=== PATIENT | female | born 1935 | race Caucasian/White ===

== ENCOUNTER 2022-02-04 12:07 | Inpatient (IN) | payer MEDICARE, SELFPAY ==
[2022-02-04] VITALS (37 sets, daily range): BP systolic 187–232; BP diastolic 54–112; PULSE 60–72; RESP 11–21; TEMP 36.3–37.1; O2SAT 95–100; BMI 29.4
--- NOTE | ~2022-02-04 | CT_ITS ---
EXAMINATION: CT brain wo con DATE: 02/04/2022 13:40 INDICATION: Head injury. TECHNIQUE: Computed tomography (CT) of the head was performed without intravenous contrast. The mA wa s adjusted according to patient size. Iterative reconstruction technique was employed. The dose-lengt h product was 605.33 mGy-cm. COMPARISON: None FINDINGS: There is an old infarct in left occipital lobe. There are old infarcts in the left basal ga nglia. There are scattered areas of low attenuation in the cerebral white matter, which is within nor mal limits for the patient's age. There is no intracranial hemorrhage, acute infarction, or abnormal intracranial mass lesion. There is ex vacuo dilatation of trigone of left lateral ventricle. The orbi ts are normal. There is mild mucosal thickening in the ethmoid sinuses. The mastoid air cells are nor mal. IMPRESSION: 1. Old infarcts involving the left occipital lobe and left basal ganglia. Reviewed, dictated and finalized at location A.
--- NOTE | ~2022-02-04 | CT_ITS ---
EXAMINATION: CT cervical spine wo con DATE: 02/04/2022 13:40 INDICATION: Head injury. TECHNIQUE: Computed tomography (CT) of the cervical spine was performed without intravenous contrast. Automated exposure control and iterative reconstruction technique were employed. The dose-length pro duct was 198.10 mGy-cm. COMPARISON: None FINDINGS: There is 7 degrees dextrocurvature of cervicothoracic spine. There is a chronic compression fracture of T2 with 1/5 loss of height. There is kyphosis of upper cervical spine. There is 2 mm ant erolisthesis of C7 on T1. There is mildly decreased disc height at C2-C3, moderately decreased disc h eight at C3-C4, severely decreased disc height at C4-C5, C5-C6, and C6-C7, and mildly decreased disc height at C7-T1. The following disc levels are specifically discussed: C2-C3: There is ankylosis of the uncovertebral joints without hypertrophy. There is ankylosis of righ t facet joint with mild hypertrophy. There is no neural foraminal stenosis. There is no central canal stenosis. C3-C4: There is mild right and severe left uncovertebral joint osteoarthritis. There is severe bilate ral facet joint osteoarthritis. There is mild bilateral neural foraminal stenosis. There is no centra l canal stenosis. C4-C5: There is severe bilateral uncovertebral joint osteoarthritis. There is mild bilateral facet nell int osteoarthritis. There is mild bilateral neural foraminal stenosis. There is mild central canal st enosis. C5-C6: There is mild bilateral uncovertebral joint osteoarthritis. There is moderate bilateral facet joint osteoarthritis. There is mild bilateral neural foraminal stenosis. There is mild central canal stenosis. C6-C7: There is severe bilateral uncovertebral joint osteoarthritis. There is severe bilateral facet joint osteoarthritis. There is mild bilateral neural foraminal stenosis. There is no central canal st enosis. C7-T1: There is no uncovertebral joint osteoarthritis. There is severe bilateral facet joint osteoart hritis. There is mild bilateral neural foraminal stenosis. There is no central canal stenosis. IMPRESSION: 1. No acute fracture. 2. Severe cervical spondylosis. Reviewed, dictated and finalized at location A.
--- NOTE | ~2022-02-04 | XR_ITS ---
EXAMINATION: XR knee RT 2V INDICATION: Right knee pain, initial encounter TECHNIQUE: Two views of the right knee are obtained. COMPARISON: None available FINDINGS: There are changes of total knee arthroplasty. Alignment is normal. There is no fracture. Ca lcified atherosclerosis is noted. IMPRESSION: 1. No acute osseous abnormality. Reviewed, dictated and finalized at location B.
--- NOTE | ~2022-02-04 | XR_ITS ---
EXAMINATION: XR knee LT 2V DATE: 02/04/2022 16:36 INDICATION: Left knee pain after fall TECHNIQUE: Two views of the left knee were obtained. COMPARISON: None. FINDINGS: Alignment is normal. No fracture or osteochondral lesion. There is severe tricompartmental osteoarthritis. No joint effusion/synovitis. Calcified atherosclerosis is noted. IMPRESSION: 1. Severe tricompartmental osteoarthritis without acute osseous abnormality. Reviewed, dictated and finalized at location B.
--- NOTE | ~2022-02-04 | XR_ITS ---
EXAMINATION: XR hand LT 2V INDICATION: Left hand pain after fall TECHNIQUE: Two views of the left hand are obtained. COMPARISON: None available FINDINGS: Examination is limited by osteopenia and two views. No fracture is identified. There is wid ening of the scapholunate interval. There is moderate osteoarthritis at the triscaphe and first carpa l metacarpal joints as well as multiple interphalangeal joints. There is questionable palmar subluxat ion of the second proximal phalanx relative to the metacarpal. IMPRESSION: 1. 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 Examination. 2. Possible palmar subluxation of the second proximal phalanx relative to the metacarpal. Reviewed, dictated and finalized at location B. IMPRESSION: 1. 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 Examination. 2. Possible palmar subluxation of the second proximal phalanx relative to the m etacarpal.
--- NOTE | 2022-02-04 12:22 | ECG_ITS ---
Measurements Intervals [place] Rate: 61 P: 167 AK: 199 QRS: 20 QRSD: 93 T: 48 QT: 436 QTc: 440 Interpretive Statements ELECTRONIC ATRIAL PACEMAKER OTHERWISE UNREMARKABLE ECG ABNORMAL RHYTHM ECG NO PREVIOUS ECG AVAILABLE FOR COMPARISON Electronically Signed On 02-04-2022 14:10:40 CDT by Dereck Pinto M.D.
--- NOTE | 2022-02-04 12:52 | ED.FALL ---
HPI - Fall General Chief Complaint: Fall Stated Complaint: weakness, fall/hit head/ elbow injury Time Seen by Provider: 02/04/22 12:10 History of Present Illness HPI Narrative: Patient is an 86-year-old female with a history of hypertension presenting after a fall. Patient states that she lives at assisted living and is usually able to go to and from the bathroom on her own. States that today she was walking she felt weak and like one of her legs gave out. States that she fell to the floor and struck the left side of her head. She denies losing consciousness. Patient denies significant complaints. She denies headache, neck pain, chest pain, lightheadedness, shortness of breath, abdominal pain, nausea vomiting, dysuria. Reports several episodes of diarrhea. Related Data Home Medications Medication Instructions Recorded Confirmed aspirin 81 mg tablet,delayed 81 mg PO DAILY 10/13/21 02/04/22 release multivit,tx with iron 27 1 tablet PO DAILY 10/13/21 02/04/22 [id number] acid 0.4 mg-minerals tablet solifenacin 5 mg tablet (Vesicare) 5 mg PO DAILY 10/13/21 02/04/22 ticagrelor 90 mg tablet (Brilinta) 90 mg PO Q12H 10/13/21 02/04/22 Allergies Allergy/AdvReac Type Severity Reaction Status Date / Time amlodipine AdvReac Anaphylaxis Verified 02/04/22 19:06 losartan AdvReac Anaphylaxis Verified 02/04/22 19:06 Review of Systems Review of Systems: All systems reviewed & are unremarkable except as noted in HPI and below PMFSH Past Medical History Medical History (Updated 02/06/22 @ 19:59 by Valeria Zimmerman MD) Anemia Hyperlipidemia due to dietary fat intake Hypertension Hyponatremia Ischemic stroke Overactive bladder Surgical History Surgical History History of permanent cardiac pacemaker placement History of renal stent Hx of total knee arthroplasty Family History Family History Mother CAD (coronary artery disease) Social History Social History (Updated 02/04/22 @ 18:40 by Leslie Zelaya NP) Social History: her daughter varun hyman is her poa . 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 She is from [facility]. She is a lifelong nonsmoker. She denies any alcohol marijuana or illicit drugs. She is typically ambulatory with assistance. Code status full code Smoking status: Never smoker Alcohol intake: never Substance use: never Substance use type: does not use Spiritual care concerns: No Has the Lack of Transportation Kept You From Medical Appointments or From Getting Medications?: No Within the Past 12 Months, Were You Worried Whether Your Food Would Run Out Before You Got Money to Buy More?: Never True What is Your Housing Situation Today?: I Have Housing Are You Worried That in the Next 2 Months, You May Not Have Your Own Housing to Live In?: No Do You Have Trouble Paying Your Heating Or Electricity Bill?: No Do You Have Trouble Paying For Medicines?: No Are You Currently Unemployed and Looking for Work?: No Highest Level of Education Completed: High School Diploma/GED Do You Have Trouble With Childcare or the Care of a Family Member?: No Exam Narrative: GENERAL: Well-appearing, well-nourished, and in no acute distress. HEAD: Normocephalic, atraumatic. EYES: PERRLA and EOMI. ENT: Nares clear, no rhinorrhea or epistaxis. Mucous membranes moist. NECK: Supple. CHEST: Clear to auscultation. No respiratory distress. HEART: Regular rate and rhythm. No murmur heard. Normal peripheral pulses. ABDOMEN: Soft, nontender, nondistended, normal active bowel sounds. EXTREMITIES: Normal range of motion. No edema. Skin tear left elbow with clean dressing in place SKIN: Warm, dry, no rash. NEURO: No focal deficits. Alert and oriented x3. PSYCH: Normal mood and affect. Course Course Emergency Course: Rebecca
[2022-02-04 13:30] LABS: Add Urine Microscopic? YES; Appearance Urine Clear (Clear); Bilirubin Urine Negative (Negative); Blood Urine Negative (Negative); Color Urine Yellow (Yellow); Glucose Urine UA Negative (Negative); Ketones Urine Negative (Negative); Leukocyte Esterase Ur Negative LEU/UL (Negative); Mucus Urine Rare /lpf; Nitrate Urine Negative (Negative); Protein Urine Negative (Negative); RBC Urine 0-2 /hpf (0-2); Specific Grav Ur 1.013 (1.001-1.035); Urobilinogen Urine Negative mg/dL (<2.0)
[2022-02-04] MEDS: SODIUM CHLORIDE 0.9% IV 1,000 ML 999 ML IV CONT (13:45)
[2022-02-04 14:14] LABS: Hematocrit 33.8 % (37.0-47.0); Hemoglobin 11.1 g/dL (12.0-15.0); Mean Corpuscular HGB Conc 32.8 g/dl (32-36); Mean Corpuscular Hemoglobin 30.4 pg (26-34); Mean Corpuscular Volume 92.6 fl (80-100); Mean Platelet Volume 8.7 fl (7.4-10.4); Platelet Count Result 156 k/mm3 (150-375); Red Blood Count 3.65 M/mm3 (4.2-5.4); White Blood Count 4.3 K/mm3 (4.5-10.0)
[2022-02-04 14:27] LABS: Alanine Aminotransferase 14 U/L (6-35); Albumin Level 3.9 g/dL (3.5-5.1); Alkaline Phosphatase 79 U/L (38-126); Anion Gap 11 mmol/L (8-16); Aspartate Amino Transferase 22 U/L (14-36); Bilirubin,Total 0.7 mg/dL (0.2-1.3); Blood Urea Nitrogen 15 mg/dL (7-17); Calcium 8.5 mg/dL (8.4-10.2); Carbon Dioxide 25 mmol/L (22-30); Chloride 90 mmol/L (98-107); Estimated CRCL calculation 51 ml/min; Estimated Glomerular Filt Rate > 60; Glucose 101 mg/dL (65-110); Potassium 4.4 mmol/L (3.4-5.0); Sodium 126 mmol/L (137-145)
[2022-02-04 14:38] LABS: Troponin I < 0.012 ng/mL (0.000-0.034)
[2022-02-04 14:48] LABS: Anisocytosis 2+ (NORMAL); Band Neutrophils Percent 3 % (0-6); Lymphocytes Absolute Manual 0.43 K/mm3 (1.1-4.5); Monocytes Absolute Manual 0.94 K/mm3 (0.1-0.90); Monocytes Percent Manual 22 % (3-9); Neutrophils Absolute Manual 2.92 K/mm3 (1.7-7.2); Neutrophils Percent Manual 65 % (46-73); Platelet Estimate Adequate (Adequate); Total Cells Counted 100
[2022-02-04 14:49] LABS: Schistocytes None Seen (NORMAL)
--- NOTE | 2022-02-04 15:00 | PC.NURSE ---
ERP notified of Pt. high blood pressure. No new orders at this time. Pt. denies any complaints
[2022-02-04 15:34] LABS: Magnesium 1.7 mg/dL (1.6-2.3)
--- NOTE | 2022-02-04 16:06 | PM.IMHP ---
H&P: HPI History of Present Illness Date/Time: 02/04/22 16:06 Chief Complaint: fall Narrative: This is an 86-year-old female patient who resides in nursing home assistant living. She has a history of hypertension. The patient is usually able to get up and ambulate on her own and get herself to the bathroom. The patient stated that her legs felt weak and felt like 1 of her legs gave out. She stated that she fell to the floor and struck the left side of her head. She states that she did not lose consciousness. She did not have any complaints of dizziness or any chest pain prior to falling. She did not have any headache or lightheadedness any shortness of breath or any other symptoms prior to falling. The patient did have several episodes of diarrhea today. She stated when she fell she lost control of her stool and when all over the carpet. Her H&H is 11.1 and 33.8. Sodium was 126 and previous it was 132. Patient was given Apresoline for elevated blood pressure in the emergency room. The patient was also given IV fluids due to the fact that she had hyponatremia. The patient is on hydrochlorothiazide at home. Plus she has had diarrhea as well. The patient is being admitted for observation status on the date of service of 02/04/2022. Review of Systems Review of Systems: See HPI All systems reviewed & are unremarkable except as noted in HPI and below Constitutional: Constitutional: Reports as per HPI and Reports no additional constitutional complaints Eyes: Eyes: Reports as per HPI and Reports no additional eye complaints ENT: Reports system reviewed and no additional complaints, except as documented and Reports Normal hearing present Cardiovascular: Cardiovascular: Reports no additional cardiovascular complaints Respiratory: Respiratory: Reports no additional respiratory complaints and Reports no additional respiratory complaints Gastrointestinal: Gastrointestinal: Reports as per HPI and Reports no additional gastrointestinal complaints Musculoskeletal: Musculoskeletal: Reports no additional musculoskeletal complaints Integumentary/Breasts: Skin/Breast: Reports system reviewed and no additional complaints, except as docu and Reports as per HPI Neurologic: Reports system reviewed and no additional complaints, except as documented, Reports as per HPI and Reports Normal hearing present Psychiatric: Psychiatric: Reports no additional psychiatric complaints and Reports as per HPI Endocrine: Endocrine: Reports no additional endocrine complaints Hematologic/Lymphatic: Hematologic/Lymphatic: Reports no additional hematologic/lymphatic complaints Allergic/Immunologic: Allergic/Immunologic: Reports no additional allergic/immunologic complaints [facility] Past Medical History Medical History (Updated 02/04/22 @ 18:49 by Leslie Zelaya NP) Anemia Hyperlipidemia due to dietary fat intake Hypertension Hyponatremia Ischemic stroke Overactive bladder Surgical History Surgical History History of permanent cardiac pacemaker placement History of renal stent Hx of total knee arthroplasty Family History Family History Mother CAD (coronary artery disease) Social History Social History (Updated 02/04/22 @ 18:40 by Leslie Zelaya NP) Social History: her daughter varun hyman is her poa . 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 She is from [facility]. She is a lifelong nonsmoker. She denies any alcohol marijuana or illicit drugs. She is typically ambulatory with assistance. Code status full code Smoking status: Never smoker Meds Home Medications and Allergies Home Medications Medication Instructions Recorded Confirmed Type aspirin 81 mg tablet,delayed 81 mg PO DAILY 10/13/21 10/13/21 History release multivit,tx with iron 27 1 tablet PO DAILY 10/13/21 06
[2022-02-04] MEDS: hydrALAZINE HCL 20 MG/ML VIAL 10 MG IV PUSH (17:26)
--- NOTE | 2022-02-04 18:23 | PC.NURSE ---
updated vitals called to floor
--- NOTE | 2022-02-04 18:47 | ADMGEN ---
This patient, Christi Perez, was admitted to 2 Medical Room 253-01. Patient/family oriented to hospital policies and general routines including ID bracelet, bed and alarms, visiting hours, pain management, procedures, bathroom and other care routines, personal items, smoking policy, room service/diet, and visiting hours. Information on how to activate the Rapid Response Team has been discussed. Patient/Family are encouraged to report perceived risks to care and to ask questions if they do not understand what they are told or what they should do.
[2022-02-04] MEDS: SODIUM CHLORIDE 0.9% IV 1,000 ML 75 ML IV CONT (19:53)
[2022-02-04] MEDS: carvediloL 12.5 MG TABLET 25 MG PO (19:54)
[2022-02-04] MEDS: TICAGRELOR 90 MG TABLET PO (19:56)
[2022-02-04 21:06] LABS: Sodium Urine Random 93 meq/L
[2022-02-05] VITALS (15 sets, daily range): BP systolic 100–181; BP diastolic 48–81; PULSE 60–69; RESP 14–18; TEMP 36.7–36.8; O2SAT 95–99
[2022-02-05 05:46] LABS: Hematocrit 34.4 % (37.0-47.0); Hemoglobin 11.3 g/dL (12.0-15.0); Immature Granulocyte Absolute 0.03 K/mm3 (0.00-0.031); Immature Granulocyte Percent A 0.9 % (0-0.5); Lymphocytes Absolute Auto 0.62 K/mm3 (0.9-3.2); Lymphocytes Percent Auto 17.7 % (18.3-44.2); Mean Corpuscular HGB Conc 32.8 g/dl (32-36); Mean Corpuscular Hemoglobin 30.5 pg (26-34); Mean Corpuscular Volume 92.7 fl (80-100); Mean Platelet Volume 9.2 fl (7.4-10.4); Monocytes Absolute Auto 0.8 K/mm3 (0.1-0.6); Monocytes Percent Auto 23.4 % (2.6-8.5); Platelet Count Result 162 k/mm3 (150-375); Red Blood Count 3.71 M/mm3 (4.2-5.4); Red Cell Distribution Width 17.1 % (11.5-14.5); White Blood Count 3.5 K/mm3 (4.5-10.0)
[2022-02-05 05:55] LABS: Lactic Acid Reflex 0.9 mmol/L (0.7-2.0)
[2022-02-05 05:56] LABS: Alanine Aminotransferase 15 U/L (6-35); Albumin Level 3.8 g/dL (3.5-5.1); Alkaline Phosphatase 74 U/L (38-126); Anion Gap 8 mmol/L (8-16); Aspartate Amino Transferase 25 U/L (14-36); Bilirubin,Total 0.7 mg/dL (0.2-1.3); Blood Urea Nitrogen 12 mg/dL (7-17); Calcium 8.5 mg/dL (8.4-10.2); Carbon Dioxide 24 mmol/L (22-30); Chloride 96 mmol/L (98-107); Creatine Kinase 85 U/L (30-135); Estimated CRCL calculation 58 ml/min; Estimated Glomerular Filt Rate > 60; Glucose 92 mg/dL (65-110); Magnesium 1.7 mg/dL (1.6-2.3); Potassium 3.7 mmol/L (3.4-5.0); Sodium 128 mmol/L (137-145)
[2022-02-05 06:29] LABS: Thyroid Stimulating Hormone Reflex 0.483 uIU/mL (0.465-4.68)
[2022-02-05] MEDS: THERAPEUTIC MULTIVITAMINS/MINERALS TAB (*BKC) 1 TABLET PO (08:43)
[2022-02-05] MEDS: carvediloL 12.5 MG TABLET 25 MG PO ×2 (08:43→17:00)
[2022-02-05] MEDS: SOLIFENACIN 5 MG TABLET PO (08:44)
[2022-02-05] MEDS: TICAGRELOR 90 MG TABLET PO ×2 (08:44→20:58)
[2022-02-05] MEDS: ASPIRIN 81 MG ENTERIC TABLET PO (08:44)
[2022-02-05] MEDS: lisinopriL 20 MG TABLET 40 MG PO (08:44)
--- NOTE | 2022-02-05 10:23 | PM.IMPN ---
Progress Note: A&P Assessment and Plan (1) Hyponatremia: Code(s): E87.1 - Hypo-osmolality and hyponatremia Status: Acute Assessment and Plan: - the patient is on hydrochlorothiazide so I will hold that for now. - I will check her urine sodium and osmolarity. - I am going to hold her hydrochlorothiazide for now. - this is most likely due to her dehydration as she has poor oral intake. She also had diarrhea and has been on a water pill. (2) Anemia: Code(s): D64.9 - Anemia, unspecified Status: Acute Assessment and Plan: -The patient is on Brilinta an aspirin but has no signs and symptoms of bleeding. -The patient is at her baseline. - the patient takes a multivitamin with iron at home. - will check a stool for occult blood as well. -MCV and MCH are normal. (3) Diarrhea: Code(s): R19.7 - Diarrhea, unspecified Status: Acute Assessment and Plan: -I did send stool for occult blood and cultures. Will treat accordingly. - patient has no complaints of any abdominal pain. -continue to monitor electrolytes and replace as necessary. -will gently hydrated she has hyponatremia. (4) Hyperlipidemia due to dietary fat intake: Code(s): E78.49 - Other hyperlipidemia Status: Acute Assessment and Plan: - I am going to hold her atorvastatin at this time due to her weakness. (5) Hypertension: Code(s): I10 - Essential (primary) hypertension Status: Acute Assessment and Plan: -continue with Coreg -continue lisinopril and continue to check BMPs daily. - hold hydrochlorothiazide due to the hyponatremia (6) Ischemic stroke: Code(s): I63.9 - Cerebral infarction, unspecified Status: Acute Assessment and Plan: as per CT today patient has old stroke -continue with aspirin and Brilinta. - Atorvastatin is on hold due to her weakness. (7) Overactive bladder: Code(s): N32.81 - Overactive bladder Status: Acute Assessment and Plan: -Continue with VESIcare Subjective Date/time seen: 02/05/22 10:23 no complaints Exam Const: General: cooperative, healthy appearing, comfortable, no acute distress, well developed, alert, awake, Physically active, average body habitus, well nourished and overweight Nutritional Appearance: average body habitus, well nourished and overweight Orientation/consciousness: oriented to person, oriented to place, oriented to time and patient oriented x3 Limitations: no limitations HENMT: Head: normal to inspection, No palpable skull fracture present, normocephalic and atraumatic Ears: external ears normal and hearing grossly impaired Face/Nose/Sinus: Normal external nose present and Normal nares present Eyes: General: appearance normal, both eyes and all related structures Alignment and Position: alignment normal Periorbital: periorbital findings normal Eyelids: eyelids normal Sclera: sclerae normal Pupils: Equal, round and reactive pupils present EOM: EOMs intact bilaterally Neck: Neck: normal visual inspection, full ROM, no lymphadenopathy, trachea midline and supple Chest: Chest palpation & inspection: normal inspection of the chest Resp: Effort & Inspection: normal respiratory effort Auscultation: clear to auscultation bilaterally Cardio: Palpation: normal PMI Rate: regular rate Rhythm: regular rhythm Heart sounds: S1 normal heart sound present and S2 normal heart sound present Peripheral pulses: Peripheral pulses 2+ throughout Other: paced beats GI: Inspection: normal to inspection Auscultation: normal bowel sounds Rectal Exam: deferred Back/Spine/Pelvis: Cervical Spine: cervical ROM normal Skin: General skin exam: normal color Lesions: no lesions Rashes: no rashes Trauma: no lacerations or abrasions Wounds: no wounds Hair: general thinning Nails: normal Other: the patient has a large purple hematoma to her left hand and left elbow. The left hand is
--- NOTE | 2022-02-05 11:35 | PC.NURSE ---
Up in recliner. OT in room trying to get patient to respond. Nurse ran into room. Patient appeared in a daze. Rapid response called. Vital signs and blood sugar taken. Patient slowly came around and responded appropriately.
--- NOTE | 2022-02-05 11:39 | PCOTNOTE ---
Attempted to see pt. for occupational therapy evaluation. Pt. unresponsive in chair. Nursing alerted. Rapid Response called. Unsafe to evaluate pt. at this time. Following.
[2022-02-05 11:48] LABS: Glucose Point of Care 145 mg/dl (65-105)
--- NOTE | 2022-02-05 12:07 | PM.EVENT ---
Event Note Event Note Event Note: 02/05/22 Critical Care Physician About 10:35 a rapid response was called to 253 for unresponsiveness. This patient had PT earlier, complained of weakness in her legs. she became pale, was not responding to questions, and was not following commands. She wears hearing aids and does not have them in, so not sure if that played a role. Her BP in the right arm while sitting in recliner was 74/40. She was reclined, repeat BP was higher 104/74. Pulse 60s, saturation 96%. After her BP increased, she was able to talk, knew that she was at [place], her name, age. Fingerstsick glucose was normal. RN said that she cane in with extremely high blood pressure over 200. She may be over-treated, might feel better with more blood pressure. I will defer this to Dr Perez. Clara Giles MD
[2022-02-06 05:15] VITALS: BP 121/61; PULSE 60; RESP 17; TEMP 36.7; O2SAT 95
[2022-02-06 05:15] LABS: IFOB Positive Control Positive; Immunochemical Fecal Occult Bl Negative (N)
[2022-02-06 05:45] LABS: Toxigenic C. Diff NEGATIVE (NEGATIVE)
[2022-02-06 09:00] LABS: Anion Gap 10 mmol/L (8-16); Blood Urea Nitrogen 17 mg/dL (7-17); Calcium 8.3 mg/dL (8.4-10.2); Carbon Dioxide 26 mmol/L (22-30); Chloride 93 mmol/L (98-107); Estimated CRCL calculation 43 ml/min; Estimated Glomerular Filt Rate > 60; Glucose 95 mg/dL (65-110); Potassium 3.8 mmol/L (3.4-5.0); Sodium 129 mmol/L (137-145)
[2022-02-06] MEDS: SOLIFENACIN 5 MG TABLET PO (09:34)
[2022-02-06] MEDS: lisinopriL 10 MG TABLET PO (09:34)
[2022-02-06] MEDS: THERAPEUTIC MULTIVITAMINS/MINERALS TAB (*BKC) 1 TABLET PO (09:34)
[2022-02-06 09:35] VITALS: PULSE 60; RESP 18; O2SAT 95
[2022-02-06] MEDS: ASPIRIN 81 MG ENTERIC TABLET PO (09:35)
[2022-02-06] MEDS: TICAGRELOR 90 MG TABLET PO ×2 (09:35→20:26)
--- NOTE | 2022-02-06 11:11 | PM.IMPN ---
Progress Note: A&P Assessment and Plan (1) Hyponatremia: Code(s): E87.1 - Hypo-osmolality and hyponatremia Status: Acute Assessment and Plan: - the patient is on hydrochlorothiazide so I will hold that for now. - I will check her urine sodium and osmolarity. - I am going to hold her hydrochlorothiazide for now. - this is most likely due to her dehydration as she has poor oral intake. - will give a little bit of fluids and see how she responds. (2) Anemia: Code(s): D64.9 - Anemia, unspecified Status: Acute Assessment and Plan: -The patient is on Brilinta an aspirin but has no signs and symptoms of bleeding. -The patient is at her baseline. - the patient takes a multivitamin with iron at home. - will check a stool for occult blood as well. -MCV and MCH are normal. (3) Diarrhea: Code(s): R19.7 - Diarrhea, unspecified Status: Acute Assessment and Plan: -I did send stool for occult blood and cultures. Will treat accordingly. - patient has no complaints of any abdominal pain. -continue to monitor electrolytes and replace as necessary. -will gently hydrated she has hyponatremia. (4) Hyperlipidemia due to dietary fat intake: Code(s): E78.49 - Other hyperlipidemia Status: Acute Assessment and Plan: - I am going to hold her atorvastatin at this time due to her weakness. (5) Hypertension: Code(s): I10 - Essential (primary) hypertension Status: Acute Assessment and Plan: -continue with Coreg -continue lisinopril and continue to check BMPs daily. - hold hydrochlorothiazide due to the hyponatremia (6) Ischemic stroke: Code(s): I63.9 - Cerebral infarction, unspecified Status: Acute Assessment and Plan: as per CT today patient has old stroke -continue with aspirin and Brilinta. - Atorvastatin is on hold due to her weakness. (7) Overactive bladder: Code(s): N32.81 - Overactive bladder Status: Acute Assessment and Plan: -Continue with VESIcare Subjective Date/time seen: 02/06/22 11:11 no new complaints. sodium is slowly improving Exam Const: General: cooperative, healthy appearing, comfortable, no acute distress, well developed, alert, awake, Physically active, average body habitus, well nourished and overweight Nutritional Appearance: average body habitus, well nourished and overweight Orientation/consciousness: oriented to person, oriented to place, oriented to time and patient oriented x3 Limitations: no limitations HENMT: Head: normal to inspection, No palpable skull fracture present, normocephalic and atraumatic Ears: external ears normal and hearing grossly impaired Face/Nose/Sinus: Normal external nose present and Normal nares present Eyes: General: appearance normal, both eyes and all related structures Alignment and Position: alignment normal Periorbital: periorbital findings normal Eyelids: eyelids normal Sclera: sclerae normal Pupils: Equal, round and reactive pupils present EOM: EOMs intact bilaterally Neck: Neck: normal visual inspection, full ROM, no lymphadenopathy, trachea midline and supple Chest: Chest palpation & inspection: normal inspection of the chest Resp: Effort & Inspection: normal respiratory effort Auscultation: clear to auscultation bilaterally Cardio: Palpation: normal PMI Rate: regular rate Rhythm: regular rhythm Heart sounds: S1 normal heart sound present and S2 normal heart sound present Peripheral pulses: Peripheral pulses 2+ throughout Other: paced beats GI: Inspection: normal to inspection Auscultation: normal bowel sounds Rectal Exam: deferred Back/Spine/Pelvis: Cervical Spine: cervical ROM normal Skin: General skin exam: normal color Lesions: no lesions Rashes: no rashes Trauma: no lacerations or abrasions Wounds: no wounds Hair: general thinning Nails: normal Other: the patient has a large purple hematoma to her
[2022-02-06] MEDS: SODIUM CHLORIDE 0.9% IV 1,000 ML 75 ML IV CONT (11:30)
[2022-02-06 14:50] VITALS: BP 107/52; PULSE 59; RESP 12; TEMP 36.1; O2SAT 99
[2022-02-06 16:41] VITALS: BP 154/69; PULSE 59; RESP 16; TEMP 36.3; O2SAT 97
[2022-02-06 16:44] VITALS: PULSE 64
[2022-02-06] MEDS: carvediloL 3.125 MG TABLET PO (16:44)
[2022-02-06 19:31] VITALS: BP 146/66; PULSE 62; RESP 18; TEMP 36.1; O2SAT 100
[2022-02-07 03:16] VITALS: BP 157/74; PULSE 59; RESP 16; TEMP 36.4; O2SAT 95
[2022-02-07 06:11] LABS: Anion Gap 6 mmol/L (8-16); Blood Urea Nitrogen 17 mg/dL (7-17); Calcium 8.1 mg/dL (8.4-10.2); Carbon Dioxide 26 mmol/L (22-30); Chloride 99 mmol/L (98-107); Estimated CRCL calculation 49 ml/min; Estimated Glomerular Filt Rate > 60; Glucose 93 mg/dL (65-110); Sodium 131 mmol/L (137-145)
--- NOTE | 2022-02-07 08:39 | PCPTNOTE ---
Patient refused treatment this session. Patient reported she does not want to do therapy this date. Educated patient on the importance of therapy and getting up to chair, patient continued to refuse.
[2022-02-07 10:02] VITALS: PULSE 58
[2022-02-07] MEDS: lisinopriL 10 MG TABLET PO (10:02)
[2022-02-07] MEDS: carvediloL 3.125 MG TABLET PO (10:02)
[2022-02-07] MEDS: TICAGRELOR 90 MG TABLET PO (10:05)
[2022-02-07] MEDS: ASPIRIN 81 MG ENTERIC TABLET PO (10:05)
[2022-02-07] MEDS: THERAPEUTIC MULTIVITAMINS/MINERALS TAB (*BKC) 1 TABLET PO (10:05)
[2022-02-07] MEDS: SOLIFENACIN 5 MG TABLET PO (10:05)
--- NOTE | 2022-02-07 11:35 | PM.DS ---
DS: Admitting Diagnosis Discharge Date February 07, 2022 Admitting Diagnosis hyponatremia DS: Discharge Diagnosis Discharge Diagnosis (1) Hyponatremia: Code(s): E87.1 - Hypo-osmolality and hyponatremia Status: Acute Assessment and Plan: - the patient is on hydrochlorothiazide so I will hold that for now. - I will check her urine sodium and osmolarity. - I am going to hold her hydrochlorothiazide for now. - this is most likely due to her dehydration as she has poor oral intake. - will give a little bit of fluids and see how she responds. (2) Anemia: Code(s): D64.9 - Anemia, unspecified Status: Acute Assessment and Plan: -The patient is on Brilinta an aspirin but has no signs and symptoms of bleeding. -The patient is at her baseline. - the patient takes a multivitamin with iron at home. - will check a stool for occult blood as well. -MCV and MCH are normal. (3) Diarrhea: Code(s): R19.7 - Diarrhea, unspecified Status: Acute Assessment and Plan: -I did send stool for occult blood and cultures. Will treat accordingly. - patient has no complaints of any abdominal pain. -continue to monitor electrolytes and replace as necessary. -will gently hydrated she has hyponatremia. (4) Hyperlipidemia due to dietary fat intake: Code(s): E78.49 - Other hyperlipidemia Status: Acute Assessment and Plan: - I am going to hold her atorvastatin at this time due to her weakness. (5) Hypertension: Code(s): I10 - Essential (primary) hypertension Status: Acute Assessment and Plan: -continue with Coreg -continue lisinopril and continue to check BMPs daily. - hold hydrochlorothiazide due to the hyponatremia (6) Ischemic stroke: Code(s): I63.9 - Cerebral infarction, unspecified Status: Acute Assessment and Plan: as per CT today patient has old stroke -continue with aspirin and Brilinta. - Atorvastatin is on hold due to her weakness. (7) Overactive bladder: Code(s): N32.81 - Overactive bladder Status: Acute Assessment and Plan: -Continue with VESIcare DS: Summary Hospital Course Hospital Course: patient med for hyponatremia and volume depletion. Patient was started on IV fluids and adjusted her blood pressure medications and stopped her diuretic. Sodium is 1 31 stable she is asymptomatic. She will be discharged with new adjustments to medications. Time Spent with Patient Time attestation: Total time spent providing and/or coordinating discharge services: Exam Const: General: cooperative, healthy appearing, comfortable, no acute distress, well developed, alert, awake, Physically active, average body habitus, well nourished and overweight Nutritional Appearance: average body habitus, well nourished and overweight Orientation/consciousness: oriented to person, oriented to place, oriented to time and patient oriented x3 Limitations: no limitations HENMT: Head: normal to inspection, No palpable skull fracture present, normocephalic and atraumatic Ears: external ears normal and hearing grossly impaired Face/Nose/Sinus: Normal external nose present and Normal nares present Eyes: General: appearance normal, both eyes and all related structures Alignment and Position: alignment normal Periorbital: periorbital findings normal Eyelids: eyelids normal Sclera: sclerae normal Pupils: Equal, round and reactive pupils present EOM: EOMs intact bilaterally Neck: Neck: normal visual inspection, full ROM, no lymphadenopathy, trachea midline and supple Chest: Chest palpation & inspection: normal inspection of the chest Resp: Effort & Inspection: normal respiratory effort Auscultation: clear to auscultation bilaterally Cardio: Palpation: normal PMI Rate: regular rate Rhythm: regular rhythm Heart sounds: S1 normal heart sound present and S2 normal heart sound present Peripheral pulses: Peripheral
[2022-02-08 17:55] LABS: Osmolality, Urine 242 mOsm/kg (50-1200)
== END 2022-02-07 13:10 | DRG 641 ==
LOC: ANHED 13:39 → ANH2MED 17:26
PROVIDERS: Nurse Practitioner; Admitting Provider Family Medicine; Emergency Provider Emergency Medicine; PCP Internal Medicine; Visit Provider Chiropractor
DX: E87.1 Hypo-osmolality and hyponatremia (principal); D64.9 Anemia, unspecified; E86.9 Volume depletion, unspecified; R19.7 Diarrhea, unspecified; E78.49 Other hyperlipidemia; N32.81 Overactive bladder; I10 Essential (primary) hypertension; R40.4 Transient alteration of awareness; W18.30XA Fall on same level, unspecified, initial encounter; Z28.21 Immunization not carried out because of patient refusal; Z79.82 Long term (current) use of aspirin; Z79.899 Other long term (current) drug therapy; Z86.73 Personal history of transient ischemic attack (TIA), and cerebral infarction without residual deficits; Z95.0 Presence of cardiac pacemaker
CPT/HCPCS: 36415; 70450; 72125; 73120; 73560; 80048; 80053; 81001; 82274; 82550; 82948; 83605; 83735; 83935; 84300; 84443; 84484; 85025; 87045; 87269; 87272; 87427; 87493; 89055; 93005; 96361; 96374; 97161; 97165; 97530; 97535; 99285; A9270; G0378; J0360; J7030

== ENCOUNTER 2023-05-10 08:28 | Outpatient (CLI) | payer MEDICARE, SELFPAY ==
[2023-05-10 08:52] LABS: Hematocrit 34.2 % (37.0-47.0); Hemoglobin 11.1 g/dL (12.0-15.0); Mean Corpuscular HGB Conc 32.5 g/dl (32-36); Mean Corpuscular Hemoglobin 30.7 pg (26-34); Mean Corpuscular Volume 94.7 fl (80-100); Mean Platelet Volume 9.4 fl (7.4-10.4); Platelet Count Result 200 k/mm3 (150-375); Red Blood Count 3.61 M/mm3 (4.2-5.4); Red Cell Distribution Width 15.7 % (11.5-14.5)
[2023-05-10 09:03] LABS: Alanine Aminotransferase 11 U/L (6-35); Alkaline Phosphatase 66 U/L (38-126); Anion Gap 5 mmol/L (8-16); Aspartate Amino Transferase 22 U/L (14-36); Bilirubin,Total 0.7 mg/dL (0.2-1.3); Blood Urea Nitrogen 14 mg/dL (7-17); Carbon Dioxide 29 mmol/L (22-30); Chloride 95 mmol/L (98-107); Cholesterol 204 mg/dL (0-200); Estimated Glomerular Filt Rate > 60; Glucose 92 mg/dL (65-110); HDL Direct 68 mg/dL; Potassium 4.1 mmol/L (3.4-5.0); Sodium 129 mmol/L (137-145); Triglycerides 61 mg/dL (<150)
[2023-05-10 09:13] LABS: LDL Cholesterol Direct 103 mg/dL
[2023-05-10 09:34] LABS: Anisocytosis 1+ (NORMAL); Band Neutrophils Percent 5 % (0-6); Basophils Absolute Manual 0.03 K/mm3 (0.0-0.1); Basophils Percent Manual 1 % (0-1); Eosinophils Absolute Manual 0.15 K/mm3 (0.02-0.5); Eosinophils Percent Manual 5 % (0-4); Hypochromasia 1+ (NORMAL); Lymphocytes Absolute Manual 1.05 K/mm3 (1.1-4.5); Monocytes Absolute Manual 0.48 K/mm3 (0.1-0.90); Monocytes Percent Manual 16 % (3-9); Neutrophils Absolute Manual 1.29 K/mm3 (1.7-7.2); Neutrophils Percent Manual 38 % (46-73); Platelet Estimate Adequate (Adequate); Schistocytes None Seen (NORMAL); Total Cells Counted 100
[2023-05-10 09:47] LABS: Vitamin D 25 Hydroxy 40.1 ng/mL
== END 2023-05-10 08:29 | disposition home or self-care (01) ==
LOC: ANHLAB 08:31
PROVIDERS: PCP Internal Medicine; Visit Provider Internal Medicine
DX: I63.9 Cerebral infarction, unspecified (principal); D64.9 Anemia, unspecified; E78.5 Hyperlipidemia, unspecified; E55.9 Vitamin D deficiency, unspecified; I10 Essential (primary) hypertension
CPT/HCPCS: 36415; 80053; 80061; 82306; 84443; 85025

== ENCOUNTER 2023-06-07 12:21 | Inpatient (IN) | payer MEDICARE, SELFPAY ==
[2023-06-07] VITALS (41 sets, daily range): BP systolic 160–237; BP diastolic 66–92; PULSE 72–97; RESP 15–24; TEMP 36.8–37.1; O2SAT 93–100
--- NOTE | ~2023-06-07 | XR_ITS ---
EXAMINATION: XR knee LT 3V DATE: 06/08/2023 14:29 INDICATION: Left knee injury. Fall. TECHNIQUE: 3 views of left knee were obtained. COMPARISON: Left knee radiographs 02/04/2022 FINDINGS: Bone alignment is normal. No fracture. There is severe tricompartmental osteoarthritis. The re is a small knee joint effusion. IMPRESSION: 1. Severe left knee osteoarthritis. 2. Small left knee joint effusion. Reviewed, dictated and finalized at location E. PHONY ENGINEER
--- NOTE | ~2023-06-07 | XR_ITS ---
EXAMINATION: XR chest 1V portable INDICATION: Weakness and dizziness TECHNIQUE: Portable AP chest at 1255 hours COMPARISON: None available FINDINGS: The lungs are free of acute opacities. No pleural effusion or pneumothorax. The cardiomedia stinal silhouette is normal. A dual-lead cardiac pacemaker of the left chest wall ends with leads in expected locations. There is moderate osteoarthritis of the shoulders. IMPRESSION: 1. No acute cardiopulmonary abnormality. Reviewed, dictated and finalized at location B. LE FUSION MIDDLEWARE DEVELOPER
--- NOTE | ~2023-06-07 | XR_ITS ---
EXAMINATION: XR knee RT 3V DATE: 06/08/2023 14:29 INDICATION: Right knee pain. TECHNIQUE: 3 views of right knee were obtained. COMPARISON: Right knee radiographs 02/04/2022 FINDINGS: There is a total right knee arthroplasty with patellar resurfacing in near-anatomic alignme nt. No periprosthetic lucency to suggest loosening or infection. No fracture. No knee joint effusion. IMPRESSION: 1. 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 Reviewed, dictated and finalized at location E. ING AND WEBBING INSPECTOR
--- NOTE | 2023-06-07 12:32 | ECG_ITS ---
Measurements Intervals Faber Rate: 77 P: 24 WV: 145 QRS: 1 QRSD: 102 T: 48 QT: 423 QTc: 480 Interpretive Statements SINUS RHYTHM WITH MARKED SINUS ARRHYTHMIA AND OCCASIONAL ELECTRONIC ATRIAL PACED RHYTHM BORDERLINE ECG COMPARED TO ECG 02/04/2022 12:15:52 SINUS RHYTHM NOW PRESENT SINUS ARRHYTHMIA NOW PRESENT Electronically Signed On 06-07-2023 16:28:58 PLANNING FEEDER by Adrian Fiore M.D.
[2023-06-07 13:06] LABS: Basophils Percent Auto 0.6 % (0.2-1.2); Hematocrit 35.1 % (37.0-47.0); Hemoglobin 11.7 g/dL (12.0-15.0); Immature Granulocyte Absolute 0.01 K/mm3 (0.00-0.031); Immature Granulocyte Percent A 0.3 % (0-0.5); Lymphocytes Absolute Auto 0.47 K/mm3 (0.9-3.2); Lymphocytes Percent Auto 15.2 % (18.3-44.2); Mean Corpuscular HGB Conc 33.3 g/dl (32-36); Mean Corpuscular Hemoglobin 31.4 pg (26-34); Mean Corpuscular Volume 94.1 fl (80-100); Mean Platelet Volume 8.5 fl (7.4-10.4); Monocytes Absolute Auto 0.9 K/mm3 (0.1-0.6); Monocytes Percent Auto 29.7 % (2.6-8.5); Neutrophils Absolute Auto 1.7 K/mm3 (1.3-6.7); Neutrophils Percent Auto 54.2 % (45.5-73.1); Platelet Count Result 135 k/mm3 (150-375); Red Blood Count 3.73 M/mm3 (4.2-5.4); Red Cell Distribution Width 15.4 % (11.5-14.5); White Blood Count 3.1 K/mm3 (4.5-10.0)
[2023-06-07 13:17] LABS: Alanine Aminotransferase 14 U/L (6-35); Albumin Level 4.1 g/dL (3.5-5.1); Alkaline Phosphatase 69 U/L (38-126); Anion Gap 4 mmol/L (8-16); Aspartate Amino Transferase 30 U/L (14-36); Bilirubin,Total 0.8 mg/dL (0.2-1.3); Blood Urea Nitrogen 15 mg/dL (7-17); Calcium 9.3 mg/dL (8.4-10.2); Carbon Dioxide 29 mmol/L (22-30); Chloride 93 mmol/L (98-107); Estimated CRCL calculation 50 ml/min; Estimated Glomerular Filt Rate > 60; Glucose 103 mg/dL (65-110); Potassium 3.8 mmol/L (3.4-5.0); Sodium 126 mmol/L (137-145)
[2023-06-07 13:35] LABS: Appearance Urine Clear (Clear); Bacteria Urine None Seen /hpf; Bilirubin Urine Negative (Negative); Blood Urine Negative (Negative); Color Urine Yellow (Yellow); Glucose Urine UA Negative (Negative); Ketones Urine 1+ mg/dL (Negative); Leukocyte Esterase Ur Negative LEU/UL (Negative); Need Manual Microscopic Reviewed; Nitrate Urine Negative (Negative); Non Pathogenic Casts 0-2; Protein Urine Trace mg/dL (Negative); Specific Grav Ur 1.013 (1.001-1.035); Squamous Epithelial Cell Urine None seen /hpf (Few); WBC Urine 0-5 /hpf; pH Urine 7.5 (5.0-9.0)
[2023-06-07 13:37] LABS: Add Urine Microscopic? YES
[2023-06-07 13:59] LABS: Influenza A QL RT-PCR Positive (Negative); Influenza B QL RT-PCR Negative (Negative); RSV RNA, RT-PCR Negative (Negative); SARS-CoV-2 RNA PCR Negative (Negative)
[2023-06-07] MEDS: SODIUM CHLORIDE 0.9% IV 1,000 ML 999 ML IV CONT (14:20)
--- NOTE | 2023-06-07 15:52 | PC.NURSE ---
Patient able to ambulate with assistance of walker. Provider aware.
[2023-06-07] MEDS: hydrALAZINE HCL 20 MG/ML VIAL 10 MG IV PUSH ×2 (16:13→18:08)
--- NOTE | 2023-06-07 16:23 | ED.WEAKNESS ---
HPI - Weakness General Chief complaint: Weakness Stated complaint: weakness Time Seen by Provider: 06/07/23 12:21 History of Present Illness HPI Narrative: Patient is an 87-year-old female who presents ER with weakness. Reports she tried to get out of bed and slid to the ground. She did not strike her head or lose consciousness. Denies fevers or chills or sweats. No chest pain chest pressure. No known sick contacts. She does live in assisted living. Related Data Home Medications Medication Instructions Recorded Confirmed aspirin 81 mg tablet,delayed 81 mg PO DAILY 10/13/21 05/03/23 release solifenacin 5 mg tablet (Vesicare) 5 mg PO DAILY 10/13/21 05/03/23 furosemide 20 mg tablet 20 mg PO QAM 05/03/23 05/03/23 hydralazine 50 mg tablet 50 mg PO TID 05/03/23 05/03/23 multivitamin (Daily-Holly tablet) 1 tablet PO DAILY 05/03/23 05/03/23 Allergies Allergy/AdvReac Type Severity Reaction Status Date / Time atorvastatin Allergy Unknown Other Verified 06/07/23 12:53 clonidine Allergy Unknown Unknown Verified 06/07/23 12:53 nifedipine Allergy Unknown Unknown Verified 06/07/23 12:53 amlodipine AdvReac Anaphylaxis Verified 06/07/23 12:53 losartan AdvReac Anaphylaxis Verified 06/07/23 12:53 metoprolol Allergy Unknown Unknown Uncoded 06/07/23 12:53 repatha Allergy Unknown Unknown Uncoded 06/07/23 12:53 tramadol Allergy Unknown Unknown Uncoded 06/07/23 12:53 Review of Systems Review of Systems: All systems reviewed & are unremarkable except as noted in HPI and below Constitutional: Constitutional: Denies chills, Reports fatigue, Denies fever(s) and Reports weakness ENT: Reports system reviewed and no additional complaints, except as documented Respiratory: Respiratory: Reports no additional respiratory complaints Gastrointestinal: Gastrointestinal: Reports no additional gastrointestinal complaints Musculoskeletal: Musculoskeletal: Reports no additional musculoskeletal complaints PMFSH Past Medical History Medical History Anemia Hyperlipidemia due to dietary fat intake Hypertension Hyponatremia Ischemic stroke Overactive bladder Surgical History Surgical History History of permanent cardiac pacemaker placement History of renal stent Hx of total knee arthroplasty Family History Family History Mother CAD (coronary artery disease) Social History Social History (Updated 05/03/23 @ 14:36 by Steve Gomez DO) Social History: her daughter varun hyman is her POA . She is and retired from the bank. She has 4 children. She is from [facility]. She is a lifelong nonsmoker. She denies any alcohol marijuana or illicit drugs. She is typically ambulatory with assistance. Code status full code Smoking status: Never smoker Second hand tobacco smoke exposure: No Alcohol intake: never Substance use: never Substance use type: does not use Do You Feel Safe in your Home?: Yes Lack of Transportation: No Lack of Food: Never True Current Housing: I Have Housing Concerned About Future Housing: No Difficulty Paying Gas/Electric Bills: No Difficulty Paying for Meds: No Currently Unemployed: No Education: High School Diploma/GED Difficulty w/ Childcare or Family Care: No Living arrangements: assisted living Occupation/Education: retired Gender identity (if verbalized by the patient): Female Spiritual care concerns: No Exam Narrative: GENERAL: Chronically ill-appearing, well-nourished, and in no acute distress. HEAD: Normocephalic, atraumatic. ENT: Mucous membranes moist. NECK: Supple. CHEST: Clear to auscultation. No respiratory distress. HEART: Regular rate and rhythm. Normal peripheral pulses. ABDOMEN: Soft, nontender, nondistended. EXTREMITIES: Normal range of motion. No edema.
--- NOTE | 2023-06-07 17:48 | PC.NURSE ---
Patient assisted to bedside commode. Female external catheter placed on patient.
--- NOTE | 2023-06-07 22:03 | ADMGEN ---
This patient, Christi Perez, was admitted to IMU Room 207-01. Patient/family oriented to hospital policies and general routines including ID bracelet, bed and alarms, visiting hours, pain management, procedures, bathroom and other care routines, personal items, smoking policy, room service/diet, and visiting hours. Information on how to activate the Rapid Response Team has been discussed. Patient/Family are encouraged to report perceived risks to care and to ask questions if they do not understand what they are told or what they should do.
[2023-06-07] MEDS: OSELTAMIVIR PHOSPHATE 75 MG CAPSULE PO (22:14)
--- NOTE | 2023-06-07 22:54 | PM.IMHP ---
H&P: HPI History of Present Illness Date/Time: 06/07/23 19:00 Chief Complaint: Generalized weakness. Narrative: This is an 87-year-old female with history of transient ischemic attack, cerebrovascular accident, hypertension, hyperlipidemia, overactive bladder, and anemia who presented to the emergency department via EMS from [facility] for evaluation of generalized weakness. The patient provides the following history. She has not been feeling well for couple of days with generalized malaise, fatigue, decreased appetite, body aches, and cough which has been occasionally productive of clear phlegm. Last night she had difficulties getting herself off of the couch due to generalized weakness and this morning when she tried to get out of bed she reports feeling weak and states that she fell down onto her bottom and was unable to get herself up. She denies syncope, near syncope, head trauma, injury, known fever, sinus congestion, sore throat, chest pain, pleuritic pain, shortness of breath, nausea, vomiting, and diarrhea. Several people at her assisted living facility have had similar symptoms and she reports that COVID and influenza are going around the facility. In the ED: She was afebrile on arrival. Blood pressures were in the 200 systolic on arrival but have improved with IV hydralazine. Her SpO2 has been in the mid to upper 90s on room air. Labs were significant for WBC count of 3.1, hemoglobin 11.7, platelet 135, sodium 126, chloride 93, creatinine 0.60, BUN 15. Urine was positive for 1+ ketones. She tested positive for influenza A. Chest x-ray showed no acute cardiopulmonary disease. She received a L of normal saline and was started on Tamiflu. She is being admitted in this setting for further treatment and closer monitoring. Review of Systems Review of Systems: Twelve systems were reviewed and negative except for as per HPI. [facility] Past Medical History Medical History (Updated 06/07/23 @ 23:09 by Constance Salgado PA-C) Anemia Chronic hyponatremia Hyperlipidemia due to dietary fat intake Hypertension Ischemic stroke Overactive bladder Surgical History Surgical History (Updated 06/07/23 @ 23:06 by Constance Salgado PA-C) History of arthroplasty of right knee History of permanent cardiac pacemaker placement History of renal stent Family History Family History Mother CAD (coronary artery disease) Social History Social History (Updated 06/07/23 @ 23:06 by Constance Salgado PA-C) Social History: Surrogate medical decision maker: Aura Perez, daughter. Code status: Full code. Smoking status: Never smoker Second hand tobacco smoke exposure: No Alcohol intake: never Substance use: never Substance use type: does not use Do You Feel Safe in your Home?: Yes Lack of Transportation: No Lack of Food: Never True Current Housing: I Have Housing Concerned About Future Housing: No Difficulty Paying Gas/Electric Bills: No Difficulty Paying for Meds: No Currently Unemployed: No Education: High School Diploma/GED Difficulty w/ Childcare or Family Care: No Living arrangements: assisted living Additional living arrangements comments: . Lives in assisted living at [facility]. Occupation/Education: retired Additional occupation/education comments: Retired from working at a [employer]. Spiritual care concerns: No Meds Home Medications and Allergies Home Medications Medication Instructions Recorded Confirmed Type aspirin 81 mg tablet,delayed 81 mg PO DAILY 10/13/21 06/07/23 History release solifenacin 5 mg tablet (Vesicare) 5 mg PO DAILY 10/13/21 06/07/23 History docusate sodium 100 mg capsule 100 mg PO Q12HR #60 caps 10/18/21 06/07/23 Rx carvedilol 3.125 mg tablet (Coreg) 3.125 mg PO BIDWM 30 days #60 tabs 02/07/22 06/07/23 Rx furosemide 20 mg tablet 20 mg PO QAM 05/03/23 06/07/23
[2023-06-07 23:47] LABS: Anion Gap 9 mmol/L (8-16); Blood Urea Nitrogen 13 mg/dL (7-17); Calcium 9.1 mg/dL (8.4-10.2); Carbon Dioxide 25 mmol/L (22-30); Chloride 92 mmol/L (98-107); Estimated CRCL calculation 59 ml/min; Estimated Glomerular Filt Rate > 60; Glucose 108 mg/dL (65-110); Potassium 3.4 mmol/L (3.4-5.0); Sodium 126 mmol/L (137-145)
[2023-06-07] MEDS: hydrALAZINE HCL 50 MG TABLET PO (23:54)
[2023-06-08] VITALS (13 sets, daily range): BP systolic 103–160; BP diastolic 49–85; PULSE 60–98; RESP 18–22; TEMP 36.2–37.2; O2SAT 91–99
[2023-06-08] MEDS: SODIUM CHLORIDE 0.9% IV 1,000 ML 100 ML IV CONT
[2023-06-08 00:34] LABS: Thyroid Stimulating Hormone Reflex 0.906 uIU/mL (0.465-4.68)
[2023-06-08 04:57] LABS: Hematocrit 38.4 % (37.0-47.0); Hemoglobin 12.9 g/dL (12.0-15.0); Mean Corpuscular HGB Conc 33.6 g/dl (32-36); Mean Corpuscular Hemoglobin 31.2 pg (26-34); Mean Corpuscular Volume 92.8 fl (80-100); Mean Platelet Volume 8.6 fl (7.4-10.4); Platelet Count Result 137 k/mm3 (150-375); Red Blood Count 4.14 M/mm3 (4.2-5.4); Red Cell Distribution Width 15.4 % (11.5-14.5); White Blood Count 3.7 K/mm3 (4.5-10.0)
[2023-06-08 05:23] LABS: Anion Gap 10 mmol/L (8-16); Blood Urea Nitrogen 13 mg/dL (7-17); Calcium 8.9 mg/dL (8.4-10.2); Carbon Dioxide 24 mmol/L (22-30); Chloride 92 mmol/L (98-107); Estimated CRCL calculation 59 ml/min; Estimated Glomerular Filt Rate > 60; Glucose 97 mg/dL (65-110); Magnesium 1.8 mg/dL (1.6-2.3); Potassium 3.3 mmol/L (3.4-5.0); Sodium 126 mmol/L (137-145)
[2023-06-08 05:40] LABS: Band Neutrophils Percent 8 % (0-6); Lymphocytes Absolute Manual 0.55 K/mm3 (1.1-4.5); Monocytes Absolute Manual 0.44 K/mm3 (0.1-0.90); Monocytes Percent Manual 12 % (3-9); Neutrophils Percent Manual 65 % (46-73); Platelet Estimate Adequate (Adequate); Total Cells Counted 100
[2023-06-08 05:41] LABS: Anisocytosis 1+ (NORMAL); Schistocytes None Seen (NORMAL)
[2023-06-08 06:06] LABS: Sodium Urine Random 160 meq/L
[2023-06-08] MEDS: hydrALAZINE HCL 50 MG TABLET PO ×2 (06:14→13:43)
[2023-06-08 08:44] LABS: Urea Random Urine 475 MG/DL
[2023-06-08] MEDS: OSELTAMIVIR PHOSPHATE 75 MG CAPSULE PO ×2 (09:18→20:54)
[2023-06-08] MEDS: SOLIFENACIN 5 MG TABLET PO (09:18)
[2023-06-08] MEDS: lisinopriL 20 MG TABLET 40 MG PO (09:18)
[2023-06-08] MEDS: carvediloL 3.125 MG TABLET PO ×2 (09:19→20:53)
[2023-06-08] MEDS: FUROSEMIDE 20 MG TABLET PO (09:19)
[2023-06-08] MEDS: ASPIRIN 81 MG ENTERIC TABLET PO (09:19)
[2023-06-08] MEDS: MULTIVITAMINS THERAPEUTIC TAB (*BKC) 1 TABLET PO (09:30)
--- NOTE | 2023-06-08 11:18 | PM.IMPN ---
Progress Note: A&P Assessment and Plan (1) Chronic hyponatremia: Code(s): E87.1 - Hypo-osmolality and hyponatremia Status: Acute (2) Pancytopenia: Code(s): D61.818 - Other pancytopenia Status: Acute (3) Generalized weakness: Code(s): R53.1 - Weakness Status: Acute (4) Influenza A: Code(s): J10.1 - Influenza due to other identified influenza virus with other respiratory manifestations Status: Acute (5) Hypertension: Code(s): I10 - Essential (primary) hypertension Status: Acute Plan A pleasant 87-year-old female with a history of TIA, CVA, hypertension, hyperlipidemia, permanent pacemaker, overactive bladder, and anemia who generally resides at [facility]. Presented on 06/07 for generalized weakness fatigue decreased appetite body aches and cough with occasional production of clear phlegm. She had had difficulties getting herself off the couch and also fell down onto her bottom and per family had had her left knee as well. Continue Tamiflu 75 mg p.o. b.i.d. Uncontrolled hypertension and now controlled status post IV hydralazine in the ER. Continue Coreg Lasix and hydralazine and lisinopril. PT OT for weakness. Chronic leukopenia Acute to subacute thrombocytopenia. This could be due to viral illness. Continue to monitor. Acute hypokalemia potassium 3.3. Replace with potassium 10 mEq x 1 She has chronic hyponatremia between the range of 126 and 132. She remains on the low end at 126. and because she appeared dry she received 1 L normal saline however her sodium has not improved and her urine sodium is elevated. Pending urine osmolality. Unclear if this has been worked up. Consult Nephrology. Repeat BMP at 1:00 p.m.. Has a history of anemia are hemoglobin on 06/08 is 12.9. It is possible she is hemoconcentrated. For the family's complaints of left knee trauma and the patient's complaint of right chronic knee pain will obtain bilateral knee x-rays. FEN: Saline lock IV. GI prophylaxis: Not indicated DVT prophylaxis: Lovenox daily Lines: Peripheral IV Code Status: Full code Dispo: Stable in IMU. Transfer to med surg with tele. Subjective Date/time seen: 06/08/23 11:18 Interval history: No acute overnight events. Patient complains of right knee pain generalized which is chronic for her. She reports a dry cough but no shortness of breath. No chest pain. Review of Systems Review of Systems: All systems reviewed & are unremarkable except as noted in HPI and below (Subjective) Exam Const: General: comfortable and no acute distress HENMT: Mouth: Yes dry mucous membranes Neck: Neck: supple Resp: Effort & Inspection: normal respiratory effort Auscultation: clear to auscultation bilaterally Cardio: Rate: regular rate Rhythm: regular rhythm GI: GI Palp: Yes Soft to palpation and No Tenderness to palpation present (GI) Extrem: General: no edema Objective Data Vital Signs Vital Signs: Vital Signs - 24 hr 06/07/23 12:17 06/07/23 12:35 06/07/23 12:45 Temperature 98.3 F Pulse Rate 77 72 83 Respiratory Rate 19 19 15 Blood Pressure 195/86 H Pulse Oximetry 96 96 97 Oxygen Delivery Room Air 06/07/23 12:46 06/07/23 14:00 06/07/23 14:15 Temperature Pulse Rate 76 83 82 Respiratory Rate 16 16 18 Blood Pressure 209/86 H Pulse Oximetry 97 97 Oxygen Delivery 06/07/23 14:30 06/07/23 14:31 06/07/23 14:45 Temperature Pulse Rate 82 75 76 Respiratory Rate 16 15 20 Blood Pressure 213/66 H Pulse Oximetry 98 100 Oxygen Delivery 06/07/23 14:46 06/07/23 15:16 06/07/23 15:38 Temperature Pulse Rate 72 93 85 Respiratory Rate 16 24 H 15 Blood Pressure 233/90 H 237/85 H Pulse Oximetry 98 Oxygen Delivery 06/07/23 15:52 06/07/23 16:00 06/07/23 16:01 Temperature Pulse Rate 86 89 75 Respiratory Rate 20 19 17 Blood Pressure 211/89 H Pulse Oximetry 98 99 Oxygen Del
[2023-06-08 13:03] LABS: Anion Gap 6 mmol/L (8-16); Blood Urea Nitrogen 16 mg/dL (7-17); Calcium 8.7 mg/dL (8.4-10.2); Carbon Dioxide 27 mmol/L (22-30); Chloride 92 mmol/L (98-107); Estimated CRCL calculation 43 ml/min; Estimated Glomerular Filt Rate > 60; Glucose 155 mg/dL (65-110); Potassium 3.6 mmol/L (3.4-5.0); Sodium 125 mmol/L (137-145)
[2023-06-08] MEDS: POTASSIUM CHLORIDE 10 MEQ ER TABLET PO (13:43)
--- NOTE | 2023-06-08 16:03 | PM.CNNEP ---
Assessment and Plan Assessment and plan (1) Hyponatremia: Code(s): E87.1 - Hypo-osmolality and hyponatremia Status: Acute Assessment and Plan: baseline sodium runs ~ 126 - 132mmol/L since September 2021 due to previous CVA (?) no improvement with normal saline IVFs possibly exacerbated by viral illness/#2 follow-up on serum and urine osmolality check TSH, cortisol, SPEP, and UPEP consider salt tabs and lasix follow trend of repeat sodium levels (2) Influenza A: Code(s): J10.1 - Influenza due to other identified influenza virus with other respiratory manifestations Status: Acute Assessment and Plan: positive testing noted on Tamiflu (3) Hypertension, uncontrolled: Code(s): I10 - Essential (primary) hypertension Status: Chronic Assessment and Plan: better control at this time continue current medications follow trend of hemodynamics (4) Generalized weakness: Code(s): R53.1 - Weakness Status: Acute Assessment and Plan: presumably due to acute illness PT/OT I will continue follow the patient with you while she remains hospitalized to make further recommendations as deemed necessary. Thank you for allowing me to participate in the care this patient. History of Present Illness Reason for Consult Consult date: 06/08/23 Reason for consult: hyponatremia Chief Complaint Chief complaint: Uncontrolled HTN,Influenza History of Present Illness Narrative: The patient is an 87-year-old female with a past medical history as outlined below who presented to [facility] Emergency room from her assisted living facility for further evaluation of generalized weakness. The patient reports that she has not been feeling well for last few days with symptoms of generalized malaise, fatigue, poor appetite, body aches, and a cough. Apparently, the night before admission, she had difficulty getting herself off the couch due to her weakness and the next morning, she was too weak even get out of bed. She reportedly slid out of her bed onto the bottom of floor but did not have an acute fall. However, she was unable to get herself up after she was on the floor. She gave no symptoms of chest pain, shortness of breath, nausea, vomiting, diarrhea, fevers, chills, or syncope. Given her constellation of symptoms and issues as mentioned, she was sent to the ER for further assessment. Workup and evaluation in the emergency room demonstrated the patient to be somewhat hypertensive with systolic BP is in the 200 range but was otherwise afebrile. She had no evidence of hypoxia and routine blood test demonstrated a depressed white blood cell count, relative anemia, thrombocytopenia, and a chemistry with normal renal function but with a sodium level of 126. her UA was only significant for 1+ ketones. Viral testing demonstrated influenza a positivity. Her chest x-ray was otherwise negative. Her low sodium level in her symptoms, she received a L of normal saline and and was started on Tamiflu. She was subsequently admitted to the hospital for further evaluation and therapy. Since her admission, her sodium level has not really improved despite the IV fluid resuscitation. She still feels somewhat weak and fatigued but does not feel any worse than on admission. Renal consultation was requested due to her hyponatremia. From review of the patient's records, she has an element of chronic hyponatremia that dates back as far as 2021 if not longer. In that time frame, her sodium level has fluctuated anywhere from 126-132 millimoles per L. it I am not entirely clear why she has chronic hyponatremia but suspicion falls on her previous CVAs as this is when it was 1st noted. She does not appear to be any culprit medications with regard to SSRIs, thiazide diuretics, narcotics, PPIs, or anti seizure medications. As far as I am aware she has no history with any type of lung dis
[2023-06-08 19:16] LABS: Anion Gap 4 mmol/L (8-16); Blood Urea Nitrogen 20 mg/dL (7-17); Calcium 8.6 mg/dL (8.4-10.2); Carbon Dioxide 26 mmol/L (22-30); Chloride 93 mmol/L (98-107); Estimated CRCL calculation 38 ml/min; Estimated Glomerular Filt Rate > 60; Glucose 105 mg/dL (65-110); Sodium 123 mmol/L (137-145)
[2023-06-08] MEDS: DOCUSATE SODIUM 100 MG CAPSULE PO (20:53)
[2023-06-09] VITALS (10 sets, daily range): BP systolic 98–156; BP diastolic 53–81; PULSE 59–82; RESP 16–18; TEMP 36–36.2; O2SAT 92–99
[2023-06-09 04:37] LABS: Hematocrit 35.9 % (37.0-47.0); Hemoglobin 11.6 g/dL (12.0-15.0); Mean Corpuscular HGB Conc 32.3 g/dl (32-36); Mean Corpuscular Hemoglobin 30.7 pg (26-34); Mean Platelet Volume 8.5 fl (7.4-10.4); Platelet Count Result 120 k/mm3 (150-375); Red Blood Count 3.78 M/mm3 (4.2-5.4); Red Cell Distribution Width 15.2 % (11.5-14.5); White Blood Count 3.2 K/mm3 (4.5-10.0)
[2023-06-09 04:58] LABS: Anion Gap 4 mmol/L (8-16); Blood Urea Nitrogen 19 mg/dL (7-17); Calcium 8.6 mg/dL (8.4-10.2); Carbon Dioxide 27 mmol/L (22-30); Chloride 94 mmol/L (98-107); Estimated CRCL calculation 50 ml/min; Estimated Glomerular Filt Rate > 60; Glucose 88 mg/dL (65-110); Magnesium 1.8 mg/dL (1.6-2.3); Potassium 3.5 mmol/L (3.4-5.0); Sodium 125 mmol/L (137-145)
[2023-06-09 05:02] LABS: Band Neutrophils Percent 5 % (0-6); Eosinophils Absolute Manual 0.03 K/mm3 (0.02-0.5); Eosinophils Percent Manual 1 % (0-4); Lymphocytes Absolute Manual 0.64 K/mm3 (1.1-4.5); Lymphocytes Percent Manual 20 % (18-44); Monocytes Absolute Manual 0.64 K/mm3 (0.1-0.90); Monocytes Percent Manual 20 % (3-9); Neutrophils Absolute Manual 1.88 K/mm3 (1.7-7.2); Neutrophils Percent Manual 54 % (46-73); Platelet Estimate Adequate (Adequate); Total Cells Counted 100
[2023-06-09 05:03] LABS: Anisocytosis 1+ (NORMAL); Ovalocytes 1+ (NORMAL); Poikilocytosis 1+ (NORMAL); Schistocytes None Seen (NORMAL)
[2023-06-09] MEDS: hydrALAZINE HCL 50 MG TABLET PO ×2 (06:02→21:28)
[2023-06-09] MEDS: ENOXAPARIN 40 MG/0.4 ML SYRINGE SUB-Q (08:25)
[2023-06-09] MEDS: FUROSEMIDE 20 MG TABLET PO (08:25)
[2023-06-09] MEDS: lisinopriL 20 MG TABLET 40 MG PO (08:25)
[2023-06-09] MEDS: SOLIFENACIN 5 MG TABLET PO (08:25)
[2023-06-09] MEDS: MULTIVITAMINS THERAPEUTIC TAB (*BKC) 1 TABLET PO (08:25)
[2023-06-09] MEDS: ASPIRIN 81 MG ENTERIC TABLET PO (08:26)
[2023-06-09] MEDS: OSELTAMIVIR PHOSPHATE 75 MG CAPSULE PO ×2 (08:26→21:28)
[2023-06-09] MEDS: carvediloL 3.125 MG TABLET PO ×2 (08:26→16:53)
[2023-06-09] MEDS: ACETAMINOPHEN 325 MG TABLET 650 MG PO (08:26)
--- NOTE | 2023-06-09 10:19 | PM.IMPN ---
Progress Note: A&P Assessment and Plan (1) Chronic hyponatremia: Code(s): E87.1 - Hypo-osmolality and hyponatremia Status: Acute (2) Pancytopenia: Code(s): D61.818 - Other pancytopenia Status: Acute (3) Generalized weakness: Code(s): R53.1 - Weakness Status: Acute (4) Influenza A: Code(s): J10.1 - Influenza due to other identified influenza virus with other respiratory manifestations Status: Acute (5) Hypertension: Code(s): I10 - Essential (primary) hypertension Status: Acute Plan A pleasant 87-year-old female with a history of TIA, CVA, hypertension, hyperlipidemia, permanent pacemaker, overactive bladder, and anemia who generally resides at [facility]. Presented on 06/07 for generalized weakness fatigue decreased appetite body aches and cough with occasional production of clear phlegm. She had had difficulties getting herself off the couch and also fell down onto her bottom and per family had had her left knee as well. #Weakness -likely due to influenza. Continue supportive care. Ensure Clear b.i.d. PTOT #Influenza a -Continue Tamiflu 75 mg p.o. b.i.d. -continue supportive care #Hypertension -Uncontrolled hypertension and now controlled status post IV hydralazine in the ER. Continue Coreg Lasix and hydralazine and lisinopril. #Chronic leukopenia -continue to monitor #Acute thrombocytopenia -could be due to viral illness. Continue to monitor #Acute hypokalemia -resolved status post replacement #Chronic hyponatremia -She has chronic hyponatremia between the range of 126 and 132. She remains on the low end at 126. and because she appeared dry she received 1 L normal saline however her sodium has not improved and her urine sodium is elevated. Pending urine osmolality. Unclear if this has been worked up. Nephrology consulted. Appreciate recs. #Anemia Has a history of anemia are hemoglobin on 06/08 is 12.9. It is possible she is hemoconcentrated. For the family's complaints of left knee trauma and the patient's complaint of right chronic knee pain will obtain bilateral knee x-rays. FEN: Saline lock IV. Dietary supplements with Ensure. GI prophylaxis: Not indicated DVT prophylaxis: Lovenox daily Lines: Peripheral IV Code Status: Full code Dispo: Order placed for transfer to med surg with tele. Stable. Subjective Date/time seen: 06/09/23 10:19 Interval history: No acute overnight events. He wonders where her glasses are. He denies any symptoms other than dry cough. And feeling weak. Review of Systems Review of Systems: All systems reviewed & are unremarkable except as noted in HPI and below (Subjective) Exam Const: General: comfortable and no acute distress HENMT: Mouth: Yes dry mucous membranes Neck: Neck: supple Resp: Effort & Inspection: normal respiratory effort Auscultation: clear to auscultation bilaterally Cardio: Rate: regular rate Rhythm: regular rhythm GI: GI Palp: Yes Soft to palpation and No Tenderness to palpation present (GI) Extrem: General: no edema Objective Data Vital Signs Vital Signs: Vital Signs - 24 hr 06/08/23 12:00 06/08/23 12:00 06/08/23 15:20 Temperature 97.7 F Pulse Rate 89 90 Respiratory Rate 18 Blood Pressure 116/55 L Pulse Oximetry 97 Oxygen Delivery Room Air 06/08/23 16:05 06/08/23 16:00 06/08/23 16:00 Temperature 97.2 F L Pulse Rate 74 60 Respiratory Rate 22 H Blood Pressure 103/49 L Pulse Oximetry 95 Oxygen Delivery Room Air 06/08/23 20:00 06/08/23 20:53 06/08/23 20:00 Temperature 97.6 F Pulse Rate 63 68 85 Respiratory Rate 20 Blood Pressure 147/65 H Pulse Oximetry 93 Oxygen Delivery 06/08/23 20:00 06/08/23 23:32 06/08/23 23:32 Temperature Pulse Rate 85 84 84 Respiratory Rate 20 Blood Pressure Pulse Oximetry 93 Oxygen Delivery Room Air 06/09/23 04:00 06/09/23 04:
--- NOTE | 2023-06-09 11:36 | PM.PNNEP ---
Progress Note: A&P Assessment and Plan (1) Hyponatremia: Code(s): E87.1 - Hypo-osmolality and hyponatremia Status: Acute Assessment and Plan: baseline sodium runs ~ 126 - 132mmol/L since September 2021 due to previous CVA (?) no improvement with normal saline IVFs possibly exacerbated by viral illness/#2 evaluation to date: TSH okay cortisol WNL serum/urine osmo and protein electrophoresis pending CXR clear previous brain imaging with previous CVAs consider salt tabs and lasix if sodium drops any further follow trend of repeat sodium levels (2) Influenza A: Code(s): J10.1 - Influenza due to other identified influenza virus with other respiratory manifestations Status: Acute Assessment and Plan: positive testing noted on Tamiflu (3) Hypertension, uncontrolled: Code(s): I10 - Essential (primary) hypertension Status: Chronic Assessment and Plan: better control at this time continue current medications follow trend of hemodynamics (4) Generalized weakness: Code(s): R53.1 - Weakness Status: Acute Assessment and Plan: presumably due to acute illness PT/OT as tolerated Will continue to follow. Subjective Date/time seen: 06/09/23 11:36 Interval history: Follow-up for acute on chronic hyponatremia. No apparent distress voiced at the time of my visit aside from generalized weakness; sodium relatively stable (but with no significant improvement); no issues/events overnight or earlier this AM. Exam Narrative: General: elderly but WD/WN female in NAD Heart: normal S1 and S2; no rub Lungs: clear to auscultation Abdomen: soft, nontender, nondistended, positive bowel sounds Extremities: no cyanosis or clubbing; no edema Skin: warm and dry Objective Data Vital Signs Vital Signs: Vital Signs Temp Pulse Resp BP Pulse Ox O2 Del Method 06/09/23 11:30 66 06/09/23 08:00 Room Air 06/09/23 08:00 80 06/09/23 08:26 80 06/09/23 08:00 97 F L 82 18 155/64 H 95 06/09/23 04:00 71 06/09/23 04:00 97.2 F L 59 L 18 156/56 H 92 06/08/23 23:32 84 06/08/23 23:32 84 06/08/23 20:00 85 20 93 Room Air 06/08/23 20:00 85 06/08/23 20:53 68 06/08/23 20:00 97.6 F 63 20 147/65 H 93 Intake/Output Intake/Output: Intake & Output 06/06/23 06/07/23 06/08/23 06/09/23 23:59 23:59 23:59 23:59 Intake Total 1000 2380 510 Output Total 650 300 Balance 1000 1730 210 Meds/Results Medications: Active Medications Generic Name Dose Route Start Last Admin Trade Name Freq PRN Reason Stop Dose Admin Acetaminophen 650 mg 06/07/23 17:51 06/09/23 08:26 Acetaminophen 325 Mg Tablet PO 650 mg Q4H PRN Administration Mild Pain (1-3) or Fever Aspirin 81 mg 06/08/23 09:00 06/09/23 08:26 Aspirin 81 Mg Enteric Tablet PO 81 mg DAILY [facility] Administration Carvedilol 3.125 mg 06/08/23 08:00 06/09/23 16:53 Carvedilol 3.125 Mg Tablet PO 3.125 mg BIDWM [facility] Administration Docusate Sodium 100 mg 06/08/23 09:00 06/09/23 08:27 Docusate Sodium 100 Mg Capsule PO Not Given Q12HR [facility] Enoxaparin Sodium 40 mg 06/09/23 09:00 06/09/23 08:25 Enoxaparin 40 Mg/0.4 Ml Syringe SUB-Q 40 mg DAILY [facility] Administration Furosemide 10 mg 06/09/23 17:30 Furosemide 10 Mg Tablet PO BID [facility]ED Hydralazine HCl 50 mg 06/07/23 23:15 06/09/23 13:36 Hydralazine Hcl 50 Mg Tablet PO Not Given Q8HR [facility]ED Lisinopril 40 mg 06/08/23 09:00 06/09/23 08:25 Lisinopril 20 Mg Tablet PO 40 mg DAILY [facility] Administration Multivitamins Therapeutic 1 tablet 06/08/23 09:00 06/09/23 08:25 Multivitamins Therapeutic Tab (*Bkc) PO 1 tablet DAILY [facility] Administration Ondansetron HCl 4 mg 06/07/23 17:51 Ondansetron Inj 4 Mg/2 Ml Vial IV PUSH Q4H PRN Nausea Oseltamivir Phosphate
--- NOTE | 2023-06-09 11:36 | P.PNNP_ITS ---
Progress Note: A&P Assessment and Plan (1) Hyponatremia: Code(s): E87.1 - Hypo-osmolality and hyponatremia Status: Acute Assessment and Plan: * baseline sodium runs ~ 126 - 132mmol/L since September 2021 * due to previous CVA (?) * no improvement with normal saline IVFs * possibly exacerbated by viral illness/#2 * evaluation to date: * TSH okay * cortisol WNL * serum/urine osmo and protein electrophoresis pending * CXR clear * previous brain imaging with previous CVAs * consider salt tabs and lasix if sodium drops any further * follow trend of repeat sodium levels (2) Influenza A: Code(s): J10.1 - Influenza due to other identified influenza virus with other respiratory manifestations Status: Acute Assessment and Plan: * positive testing noted * on Tamiflu (3) Hypertension, uncontrolled: Code(s): I10 - Essential (primary) hypertension Status: Chronic Assessment and Plan: * better control at this time * continue current medications * follow trend of hemodynamics (4) Generalized weakness: Code(s): R53.1 - Weakness Status: Acute Assessment and Plan: * presumably due to acute illness * PT/OT as tolerated Will continue to follow. Subjective Date/time seen: 06/09/23 11:36 Interval history: Follow-up for acute on chronic hyponatremia. No apparent distress voiced at the time of my visit aside from generalized weakness; sodium relatively stable (but with no significant improvement); no issues/events overnight or earlier this AM. Exam Narrative: General: elderly but WD/WN female in NAD Heart: normal S1 and S2; no rub Lungs: clear to auscultation Abdomen: soft, nontender, nondistended, positive bowel sounds Extremities: no cyanosis or clubbing; no edema Skin: warm and dry Objective Data Vital Signs Vital Signs: Vital Signs Temp Pulse Resp BP Pulse Ox O2 Del Method 06/09/23 11:30 66 06/09/23 08:00 Room Air 06/09/23 08:00 80 06/09/23 08:26 80 06/09/23 08:00 97 F L 82 18 155/64 H 95 06/09/23 04:00 71 06/09/23 04:00 97.2 F L 59 L 18 156/56 H 92 06/08/23 23:32 84 06/08/23 23:32 84 06/08/23 20:00 85 20 93 Room Air 06/08/23 20:00 85 06/08/23 20:53 68 06/08/23 20:00 97.6 F 63 20 147/65 H 93 Intake/Output Intake/Output: Intake & Output 06/06/23 06/07/23 06/08/23 06/09/23 23:59 23:59 23:59 23:59 Intake Total 1000 2380 510 Output Total 650 300 Balance 1000 1730 210 Meds/Results Medications: Active Medications Generic Name Dose Route Start Last Admin Trade Name Freq PRN Reason Stop Dose Admin Acetaminophen 650 mg 06/07/23 17:51 06/09/23 08:26 Acetaminophen 325 Mg Tablet PO 650 mg Q4H PRN Administration Mild Pain (1-3) or Fever Aspirin 81 mg 06/08/23 09:00 06/09/23 08:26 Aspirin 81 Mg Enteric Tablet PO 81 mg DAILY [facility] Administration Carvedilol 3.125 mg 06/08/23 08:00 06/09/23 16:53 Carvedilol 3.125 Mg Tablet PO 3.125 mg
[2023-06-09 13:32] LABS: Anion Gap 6 mmol/L (8-16); Blood Urea Nitrogen 23 mg/dL (7-17); Calcium 8.6 mg/dL (8.4-10.2); Carbon Dioxide 29 mmol/L (22-30); Chloride 91 mmol/L (98-107); Estimated CRCL calculation 38 ml/min; Estimated Glomerular Filt Rate > 60; Glucose 119 mg/dL (65-110); Potassium 3.9 mmol/L (3.4-5.0); Sodium 126 mmol/L (137-145)
[2023-06-09] MEDS: FUROSEMIDE 10 MG TABLET PO (18:03)
[2023-06-09] MEDS: SODIUM CHLORIDE 500 MG TABLET PO (18:03)
[2023-06-09 20:47] LABS: Anion Gap 4 mmol/L (8-16); Blood Urea Nitrogen 25 mg/dL (7-17); Calcium 8.3 mg/dL (8.4-10.2); Carbon Dioxide 27 mmol/L (22-30); Chloride 92 mmol/L (98-107); Estimated CRCL calculation 43 ml/min; Estimated Glomerular Filt Rate > 60; Glucose 132 mg/dL (65-110); Potassium 3.2 mmol/L (3.4-5.0); Sodium 123 mmol/L (137-145)
[2023-06-10] VITALS (12 sets, daily range): BP systolic 100–145; BP diastolic 42–65; PULSE 60–83; RESP 16–20; TEMP 36.2–36.8; O2SAT 93–98
[2023-06-10 04:56] LABS: Basophils Percent Auto 0.3 % (0.2-1.2); Hematocrit 33.4 % (37.0-47.0); Hemoglobin 11.1 g/dL (12.0-15.0); Immature Granulocyte Absolute 0.01 K/mm3 (0.00-0.031); Immature Granulocyte Percent A 0.3 % (0-0.5); Lymphocytes Absolute Auto 0.75 K/mm3 (0.9-3.2); Lymphocytes Percent Auto 24.4 % (18.3-44.2); Mean Corpuscular HGB Conc 33.2 g/dl (32-36); Mean Corpuscular Hemoglobin 30.7 pg (26-34); Mean Corpuscular Volume 92.3 fl (80-100); Mean Platelet Volume 8.5 fl (7.4-10.4); Monocytes Absolute Auto 0.5 K/mm3 (0.1-0.6); Monocytes Percent Auto 17.6 % (2.6-8.5); Neutrophils Absolute Auto 1.7 K/mm3 (1.3-6.7); Neutrophils Percent Auto 56.4 % (45.5-73.1); Platelet Count Result 128 k/mm3 (150-375); Red Blood Count 3.62 M/mm3 (4.2-5.4); White Blood Count 3.1 K/mm3 (4.5-10.0)
[2023-06-10 05:13] LABS: Anion Gap 4 mmol/L (8-16); Blood Urea Nitrogen 20 mg/dL (7-17); Calcium 8.4 mg/dL (8.4-10.2); Carbon Dioxide 29 mmol/L (22-30); Chloride 93 mmol/L (98-107); Estimated CRCL calculation 50 ml/min; Estimated Glomerular Filt Rate > 60; Glucose 88 mg/dL (65-110); Magnesium 1.6 mg/dL (1.6-2.3); Potassium 3.3 mmol/L (3.4-5.0); Sodium 126 mmol/L (137-145)
[2023-06-10] MEDS: hydrALAZINE HCL 50 MG TABLET PO ×2 (05:30→21:48)
[2023-06-10] MEDS: MULTIVITAMINS THERAPEUTIC TAB (*BKC) 1 TABLET PO (10:14)
[2023-06-10] MEDS: OSELTAMIVIR PHOSPHATE 75 MG CAPSULE PO ×2 (10:14→21:49)
[2023-06-10] MEDS: ASPIRIN 81 MG ENTERIC TABLET PO (10:14)
[2023-06-10] MEDS: SODIUM CHLORIDE 500 MG TABLET PO ×2 (10:15→21:49)
[2023-06-10] MEDS: FUROSEMIDE 10 MG TABLET PO ×2 (10:15→21:49)
[2023-06-10] MEDS: lisinopriL 20 MG TABLET 40 MG PO (10:15)
[2023-06-10] MEDS: carvediloL 3.125 MG TABLET PO (10:16)
[2023-06-10] MEDS: ENOXAPARIN 40 MG/0.4 ML SYRINGE SUB-Q (10:17)
[2023-06-10] MEDS: SOLIFENACIN 5 MG TABLET PO (10:17)
--- NOTE | 2023-06-10 12:21 | PM.IMPN ---
Progress Note: A&P Assessment and Plan (1) Chronic hyponatremia: Code(s): E87.1 - Hypo-osmolality and hyponatremia Status: Acute (2) Pancytopenia: Code(s): D61.818 - Other pancytopenia Status: Acute (3) Generalized weakness: Code(s): R53.1 - Weakness Status: Acute (4) Influenza A: Code(s): J10.1 - Influenza due to other identified influenza virus with other respiratory manifestations Status: Acute (5) Hypertension: Code(s): I10 - Essential (primary) hypertension Status: Acute Plan A pleasant 87-year-old female with a history of TIA, CVA, hypertension, hyperlipidemia, permanent pacemaker, overactive bladder, and anemia who generally resides at [facility]. Presented on 06/07 for generalized weakness fatigue decreased appetite body aches and cough with occasional production of clear phlegm. She had had difficulties getting herself off the couch and also fell down onto her bottom and per family had had her left knee as well. #Weakness -likely due to influenza. Continue supportive care. Ensure Clear b.i.d. PTOT #Influenza a -Continue Tamiflu 75 mg p.o. b.i.d. -continue supportive care #Hypertension -Uncontrolled hypertension and now controlled status post IV hydralazine in the ER. Continue Coreg Lasix and hydralazine and lisinopril. #Chronic leukopenia -continue to monitor #Acute thrombocytopenia -could be due to viral illness. Continue to monitor #Acute hypokalemia -replace and recheck. #Chronic hyponatremia -She has chronic hyponatremia between the range of 126 and 132. She remains on the low end at 126. and because she appeared dry she received 1 L normal saline however her sodium has not improved and her urine sodium is elevated. Pending urine osmolality. Unclear if this has been worked up. Workup pending per Nephrology. Continue sodium chloride and Lasix b.i.d.. #Anemia Has a history of anemia are hemoglobin on 06/08 is 12.9. It is possible she is hemoconcentrated on admission. -stable FEN: Saline lock IV. Dietary supplements with Ensure. GI prophylaxis: Not indicated DVT prophylaxis: Lovenox daily Lines: Peripheral IV Code Status: Full code Dispo: Stable on telemetry. Dispo pending, sub acute care nurse setting up acute rehab at [facility] Subjective Date/time seen: 06/10/23 12:21 Interval history: No acute overnight events. Patient denies any complaints. She is amenable to acute rehab. Review of Systems Review of Systems: All systems reviewed & are unremarkable except as noted in HPI and below (Subjective) Exam Const: General: comfortable and no acute distress Other: A&O x3 Eyes: Pupils: Equal, round and reactive pupils present Neck: Neck: supple Resp: Effort & Inspection: normal respiratory effort Auscultation: clear to auscultation bilaterally Cardio: Rate: regular rate Rhythm: regular rhythm GI: GI Palp: Yes Soft to palpation and No Tenderness to palpation present (GI) Extrem: General: no edema Objective Data Vital Signs Vital Signs: Vital Signs - 24 hr 06/09/23 13:27 06/09/23 16:00 06/09/23 16:53 Temperature Pulse Rate 62 63 Respiratory Rate Blood Pressure 101/53 L Pulse Oximetry Oxygen Delivery 06/09/23 16:00 06/09/23 21:12 06/09/23 20:00 Temperature 96.8 F L 97.0 F L Pulse Rate 62 65 62 Respiratory Rate 16 16 Blood Pressure 155/75 H 98/81 L Pulse Oximetry 97 99 Oxygen Delivery 06/10/23 00:00 06/10/23 03:48 06/09/23 21:49 Temperature 97.2 F L Pulse Rate 69 68 Respiratory Rate 16 Blood Pressure 145/42 H Pulse Oximetry 98 93 Oxygen Delivery Room Air 06/10/23 04:00 06/10/23 08:00 06/10/23 08:00 Temperature 97.8 F Pulse Rate 74 81 83 Respiratory Rate 16 Blood Pressure 132/65 Pulse Oximetry 93 Oxygen Delivery 06/10/23 10:16 06/10/23 08:00 Temperature Pulse Rate 68 Respiratory Rate
--- NOTE | 2023-06-10 13:05 | PM.PNNEP ---
Progress Note: A&P Assessment and Plan (1) Hyponatremia: Code(s): E87.1 - Hypo-osmolality and hyponatremia Status: Acute Assessment and Plan: baseline sodium runs ~ 126 - 132mmol/L since September 2021 due to previous CVA (?) no improvement with normal saline IVFs possibly exacerbated by viral illness/#2 evaluation to date: TSH okay cortisol WNL serum/urine osmo and protein electrophoresis pending CXR clear previous brain imaging with previous CVAs started on salt tabs and lasix follow trend of repeat sodium levels (2) Influenza A: Code(s): J10.1 - Influenza due to other identified influenza virus with other respiratory manifestations Status: Acute Assessment and Plan: positive testing noted on Tamiflu (3) Hypertension, uncontrolled: Code(s): I10 - Essential (primary) hypertension Status: Chronic Assessment and Plan: better control at this time continue current medications follow trend of hemodynamics (4) Generalized weakness: Code(s): R53.1 - Weakness Status: Acute Assessment and Plan: presumably due to acute illness PT/OT as tolerated Will continue to follow. Subjective Date/time seen: 06/10/23 13:05 Interval history: Follow-up for acute on chronic hyponatremia. Due to dropping sodium yesterday, initiated on low dose salt tabs with low dose lasix; no other apparent issues voiced at this time; no acute complaints voiced. Exam Narrative: General: elderly but WD/WN female in NAD Heart: normal S1 and S2; no rub Lungs: clear to auscultation Abdomen: soft, nontender, nondistended, positive bowel sounds Extremities: no cyanosis or clubbing; no edema Skin: warm and intact Objective Data Vital Signs Vital Signs: Vital Signs Temp Pulse Resp BP Pulse Ox O2 Del Method 06/10/23 13:00 98.3 F 72 18 100/42 L 96 06/10/23 11:00 79 06/10/23 08:00 Room Air 06/10/23 10:16 68 06/10/23 08:00 83 06/10/23 08:00 97.8 F 81 16 132/65 93 06/10/23 04:00 74 06/09/23 21:49 93 Room Air 06/10/23 03:48 97.2 F L 68 16 145/42 H 98 06/10/23 00:00 69 06/09/23 20:00 62 06/09/23 21:12 97.0 F L 65 16 98/81 L 99 Intake/Output Intake/Output: Intake & Output 06/07/23 06/08/23 06/09/23 06/10/23 23:59 23:59 23:59 23:59 Intake Total 1000 2380 1100 680 Output Total 650 1201 750 Balance 1000 1730 -101 -70 Meds/Results Medications: Active Medications Generic Name Dose Route Start Last Admin Trade Name Freq PRN Reason Stop Dose Admin Acetaminophen 650 mg 06/07/23 17:51 06/09/23 08:26 Acetaminophen 325 Mg Tablet PO 650 mg Q4H PRN Administration Mild Pain (1-3) or Fever Aspirin 81 mg 06/08/23 09:00 06/10/23 10:14 Aspirin 81 Mg Enteric Tablet PO 81 mg DAILY [facility] Administration Carvedilol 3.125 mg 06/08/23 08:00 06/10/23 16:42 Carvedilol 3.125 Mg Tablet PO Not Given BIDWM [facility] Docusate Sodium 100 mg 06/08/23 09:00 06/10/23 10:14 Docusate Sodium 100 Mg Capsule PO Not Given Q12HR [facility] Enoxaparin Sodium 40 mg 06/09/23 09:00 06/10/23 10:17 Enoxaparin 40 Mg/0.4 Ml Syringe SUB-Q 40 mg DAILY [facility] Administration Furosemide 10 mg 06/09/23 17:30 06/10/23 16:42 Furosemide 10 Mg Tablet PO Not Given BID CED Hydralazine HCl 50 mg 06/07/23 23:15 06/10/23 14:20 Hydralazine Hcl 50 Mg Tablet PO Not Given Q8HR [facility] Lisinopril 40 mg 06/08/23 09:00 06/10/23 10:15 Lisinopril 20 Mg Tablet PO 40 mg DAILY [facility] Administration Multivitamins Therapeutic 1 tablet 06/08/23 09:00 06/10/23 10:14 Multivitamins Therapeutic Tab (*Bkc) PO 1 tablet DAILY [facility] Administration Ondansetron HCl 4 mg 06/07/23 17:51 Ondansetron Inj 4 Mg/2 Ml Vial IV PUSH Q4H PRN Nausea Oseltamivir Phosphate 75 mg 06/07/23 21:00 06/10/23 10:14 Oseltam
--- NOTE | 2023-06-10 13:05 | P.PNNP_ITS ---
Progress Note: A&P Assessment and Plan (1) Hyponatremia: Code(s): E87.1 - Hypo-osmolality and hyponatremia Status: Acute Assessment and Plan: * baseline sodium runs ~ 126 - 132mmol/L since September 2021 * due to previous CVA (?) * no improvement with normal saline IVFs * possibly exacerbated by viral illness/#2 * evaluation to date: * TSH okay * cortisol WNL * serum/urine osmo and protein electrophoresis pending * CXR clear * previous brain imaging with previous CVAs * started on salt tabs and lasix * follow trend of repeat sodium levels (2) Influenza A: Code(s): J10.1 - Influenza due to other identified influenza virus with other respiratory manifestations Status: Acute Assessment and Plan: * positive testing noted * on Tamiflu (3) Hypertension, uncontrolled: Code(s): I10 - Essential (primary) hypertension Status: Chronic Assessment and Plan: * better control at this time * continue current medications * follow trend of hemodynamics (4) Generalized weakness: Code(s): R53.1 - Weakness Status: Acute Assessment and Plan: * presumably due to acute illness * PT/OT as tolerated Will continue to follow. Subjective Date/time seen: 06/10/23 13:05 Interval history: Follow-up for acute on chronic hyponatremia. Due to dropping sodium yesterday, initiated on low dose salt tabs with low dose lasix; no other apparent issues voiced at this time; no acute complaints voiced. Exam Narrative: General: elderly but WD/WN female in NAD Heart: normal S1 and S2; no rub Lungs: clear to auscultation Abdomen: soft, nontender, nondistended, positive bowel sounds Extremities: no cyanosis or clubbing; no edema Skin: warm and intact Objective Data Vital Signs Vital Signs: Vital Signs Temp Pulse Resp BP Pulse Ox O2 Del Method 06/10/23 13:00 98.3 F 72 18 100/42 L 96 06/10/23 11:00 79 06/10/23 08:00 Room Air 06/10/23 10:16 68 06/10/23 08:00 83 06/10/23 08:00 97.8 F 81 16 132/65 93 06/10/23 04:00 74 06/09/23 21:49 93 Room Air 02/24/24 03:48 97.2 F L 68 16 145/42 H 98 06/10/23 00:00 69 06/09/23 20:00 62 06/09/23 21:12 97.0 F L 65 16 98/81 L 99 Intake/Output Intake/Output: Intake & Output 06/07/23 06/08/23 06/09/23 06/10/23 23:59 23:59 23:59 23:59 Intake Total 1000 2380 1100 680 Output Total 650 1201 750 Balance 1000 1730 -101 -70 Meds/Results Medications: Active Medications Generic Name Dose Route Start Last Admin Trade Name Freq PRN Reason Stop Dose Admin Acetaminophen 650 mg 06/07/23 17:51 06/09/23 08:26 Acetaminophen 325 Mg Tablet PO 650 mg Q4H PRN Administration Mild Pain (1-3) or Fever Aspirin 81 mg 06/08/23 09:00 06/10/23 10:14 Aspirin 81 Mg Enteric Tablet PO 81 mg DAILY [facility] Administration Carvedilol 3.125 mg 06/08/23 08:00 06/10/23 16:42 Carvedilol 3.125 Mg Tablet PO Not Given BIDWM [facility] Docusate Sodium 100 mg 06/08/23 09:00
--- NOTE | 2023-06-10 13:34 | PC.NURSE ---
Patient received from IMU at 13:35 on 06/10/2023.
[2023-06-10] MEDS: POTASSIUM CHLORIDE 20 MEQ ER TABLET PO ×2 (13:53→16:45)
--- NOTE | 2023-06-10 14:54 | PCPTNOTE ---
Patient states she is just too tired for therapy today.
--- NOTE | 2023-06-10 16:42 | PC.NURSE ---
This patient, Christi Perez, was transferred to [facility] on 06/10/23 at 1332. Personal belongings sent with patient. Report given to RN. Appropriate documentation sent with patient.
[2023-06-10 20:16] LABS: Osmolality, Urine 547 mOsm/kg (50-1200)
[2023-06-10] MEDS: DOCUSATE SODIUM 100 MG CAPSULE PO (21:48)
[2023-06-10] MEDS: ACETAMINOPHEN 325 MG TABLET 650 MG PO (21:49)
[2023-06-11] VITALS (9 sets, daily range): BP systolic 118–169; BP diastolic 48–81; PULSE 63–77; RESP 16; TEMP 36.4; O2SAT 96–98
[2023-06-11] MEDS: hydrALAZINE HCL 50 MG TABLET PO (05:39)
[2023-06-11 06:38] LABS: Hematocrit 32.9 % (37.0-47.0); Hemoglobin 10.7 g/dL (12.0-15.0); Mean Corpuscular HGB Conc 32.5 g/dl (32-36); Mean Corpuscular Hemoglobin 30.4 pg (26-34); Mean Corpuscular Volume 93.5 fl (80-100); Mean Platelet Volume 8.7 fl (7.4-10.4); Platelet Count Result 135 k/mm3 (150-375); Red Blood Count 3.52 M/mm3 (4.2-5.4); Red Cell Distribution Width 15.1 % (11.5-14.5); White Blood Count 3.5 K/mm3 (4.5-10.0)
[2023-06-11 06:59] LABS: Anion Gap 4 mmol/L (8-16); Blood Urea Nitrogen 20 mg/dL (7-17); Calcium 8.4 mg/dL (8.4-10.2); Carbon Dioxide 28 mmol/L (22-30); Chloride 95 mmol/L (98-107); Estimated CRCL calculation 50 ml/min; Estimated Glomerular Filt Rate > 60; Glucose 93 mg/dL (65-110); Magnesium 1.8 mg/dL (1.6-2.3); Sodium 127 mmol/L (137-145)
[2023-06-11] MEDS: FUROSEMIDE 10 MG TABLET PO (09:06)
[2023-06-11] MEDS: OSELTAMIVIR PHOSPHATE 75 MG CAPSULE PO (09:06)
[2023-06-11] MEDS: carvediloL 3.125 MG TABLET PO (09:06)
[2023-06-11] MEDS: SOLIFENACIN 5 MG TABLET PO (09:06)
[2023-06-11] MEDS: SODIUM CHLORIDE 500 MG TABLET PO (09:07)
[2023-06-11] MEDS: DOCUSATE SODIUM 100 MG CAPSULE PO (09:07)
[2023-06-11] MEDS: lisinopriL 20 MG TABLET 40 MG PO (09:07)
[2023-06-11] MEDS: MULTIVITAMINS THERAPEUTIC TAB (*BKC) 1 TABLET PO (09:07)
[2023-06-11] MEDS: ASPIRIN 81 MG ENTERIC TABLET PO (09:07)
[2023-06-11] MEDS: ENOXAPARIN 40 MG/0.4 ML SYRINGE SUB-Q (09:08)
--- NOTE | 2023-06-11 12:29 | P.PNNP_ITS ---
Progress Note: A&P Assessment and Plan (1) Hyponatremia: Code(s): E87.1 - Hypo-osmolality and hyponatremia Status: Acute Assessment and Plan: * baseline sodium runs ~ 126 - 132mmol/L since September 2021 * due to previous CVA (?) * no improvement with normal saline IVFs * possibly exacerbated by viral illness/#2 * evaluation to date: * TSH okay * cortisol WNL * serum/urine osmo and protein electrophoresis pending * CXR clear * previous brain imaging with previous CVAs * started on salt tabs and lasix * follow trend of repeat sodium levels (2) Influenza A: Code(s): J10.1 - Influenza due to other identified influenza virus with other respiratory manifestations Status: Acute Assessment and Plan: * positive testing noted * on Tamiflu (3) Hypertension, uncontrolled: Code(s): I10 - Essential (primary) hypertension Status: Chronic Assessment and Plan: * better control at this time * continue current medications * follow trend of hemodynamics (4) Generalized weakness: Code(s): R53.1 - Weakness Status: Acute Assessment and Plan: * presumably due to acute illness * PT/OT as tolerated Will continue to follow. Subjective Date/time seen: 06/11/23 12:29 Interval history: Follow-up for acute on chronic hyponatremia. Sodium level appears stable if not better with current interventions/therapy; no other issues/events overnight or earlier this morning; no apparent distress to report. Exam Narrative: General: elderly but WD/WN female in NAD Heart: normal S1 and S2; no rub Lungs: clear to auscultation Abdomen: soft, nontender, nondistended, positive bowel sounds Extremities: no cyanosis or clubbing; no edema Skin: no rash or nodules Objective Data Vital Signs Vital Signs: Vital Signs Temp Pulse Resp BP Pulse Ox O2 Del Method 06/11/23 12:00 97.5 F L 66 16 169/62 H 98 06/11/23 09:05 Room Air 06/11/23 09:06 77 06/11/23 09:02 77 134/63 97 06/11/23 04:00 71 06/11/23 06:00 97.6 F 64 16 118/81 96 06/11/23 00:00 63 06/10/23 20:00 60 06/10/23 20:00 Room Air 06/10/23 21:13 97.6 F 72 20 123/56 L 97 Intake/Output Intake/Output: Intake & Output 06/08/23 06/09/23 06/10/23 06/11/23 23:59 23:59 23:59 23:59 Intake Total 2380 1100 1139 410 Output Total 650 1201 750 Balance 1730 -101 389 410 Meds/Results Radiology Results: ITS Impressions Chest X-Ray 06/07/23 13:08 IMPRESSION: 1. No acute cardiopulmonary abnormality. Knee X-Ray 06/08/23 15:08 IMPRESSION: 1. 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 Labs Labs: Laboratory Tests 06/11/23 06:09 06/11/23 06:09 Calcium 8.4 Magnesium 1.8 AMG Follow-up [facility]illing [facility] Follow-up Hospital Follow-up: [id number] [facility]
[2023-06-11 12:31] LABS: Kappa\\Lambda Light Chains 7.46 (0.26-1.65); Lambda Light Chain 15.3 mg/L (5.7-26.3)
--- NOTE | 2023-06-11 14:53 | PM.DS ---
DS: Admitting Diagnosis Discharge Date June 11, 2023 Admitting Diagnosis Generalized weakness DS: Discharge Diagnosis Discharge Diagnosis (1) Chronic hyponatremia: Code(s): E87.1 - Hypo-osmolality and hyponatremia Status: Acute (2) Generalized weakness: Code(s): R53.1 - Weakness Status: Acute (3) Influenza A: Code(s): J10.1 - Influenza due to other identified influenza virus with other respiratory manifestations Status: Acute (4) Hypertension, uncontrolled: Code(s): I10 - Essential (primary) hypertension Status: Acute (5) Hyponatremia: Code(s): E87.1 - Hypo-osmolality and hyponatremia Status: Acute (6) Thrombocytopenia: Code(s): D69.6 - Thrombocytopenia, unspecified Status: Acute DS: Summary Hospital Course Hospital Course: This is a pleasant 87-year-old female with a history of TIA, CVA, hypertension, hyperlipidemia, permanent pacemaker, overactive bladder, chronic anemia, chronic hyponatremia, chronic leukopenia who presents from [facility] for generalized weakness body aches and dry cough. She was found to have influenza a and admitted on 06/07/2023. The patient's weakness likely due to influenza. She completed 5 days of Tamiflu 75 mg p.o. b.i.d.. She is discharged in stable condition back to [facility] and care coordination as set up for rehab there. Upon presentation she had uncontrolled hypertension for which she received IV hydralazine in the emergency department. Her Coreg Lasix hydralazine and lisinopril were then continued however she had borderline low blood pressures. She is discharged with hydralazine discontinued. Her Lasix changed from 20 mg p.o. daily to 10 mg p.o. b.i.d.. For chronic leukopenia stable and this should be followed up as outpatient as well as the acute thrombocytopenia. Acute hypokalemia resolved status post replacement. Anemia stable. As for her chronic hyponatremia she typically lives between 126 and 132. Nephrology consulted and further workup is pending. To follow-up as outpatient with this. Her sodium remained stable and she was given sodium chloride 500 mg p.o. tablets b.i.d. while Lasix changed from 20 q.a.m. to 10 mg p.o. b.i.d.. The patient was full code during the admission. Time Spent with Patient Time attestation: Total time spent providing and/or coordinating discharge services: Exam Const: General: comfortable and no acute distress Other: A&O x3 Eyes: Pupils: Equal, round and reactive pupils present Neck: Neck: supple Resp: Effort & Inspection: normal respiratory effort Auscultation: clear to auscultation bilaterally Cardio: Rate: regular rate Rhythm: regular rhythm GI: GI Palp: Yes Soft to palpation and No Tenderness to palpation present (GI) Extrem: General: no edema DS: Data Data Completed and Pending Labs on day of discharge: Labs from last 24 hours 06/11/23 06/09/23 06/08/23 06:09 04:05 05:40 WBC 3.5 L RBC 3.52 L Hgb 10.7 L Hct 32.9 L MCV 93.5 MCH 30.4 MCHC 32.5 RDW 15.1 H Plt Count 135 L MPV 8.7 Sodium 127 L Potassium 4.0 Chloride 95 L Carbon Dioxide 28 Anion Gap 4 L BUN 20 H Creatinine 0.60 L Estim Creat Clear Calc 50 Estimated GFR > 60 Glucose 93 Serum Osmolality Calcium 8.4 Magnesium 1.8 Urine Osmolality 547 Mcdougal/Lambda Ratio 7.46 H Free Mcdougal Light Chains 114.1 H Free Lambda Light Chain 15.3 06/07/23 23:31 WBC RBC Hgb Hct MCV MCH MCHC RDW Plt Count MPV Sodium Potassium Chloride Carbon Dioxide Anion Gap BUN Creatinine Estim Creat Clear Calc Estimated GFR Glucose Serum Osmolality 259 L Calcium Magnesium Urine Osmolality Mcdougal/Lambda Ratio Free Mcdougal Light Chains Free Lambda Light Chain Discharge Plan Discharge Attendi
[2023-06-11 16:31] LABS: SARS-CoV-2 RNA PCR Negative (Negative)
[2023-06-12 11:11] LABS: Abnormal Protein Band 1 0.2 g/dL; Albumin 3.1 g/dL (3.8-4.8); Alpha 1 Globulin 0.3 g/dL (0.2-0.3); Alpha 2 Globulin 0.7 g/dL (0.5-0.9); Beta 1 Globulin 0.3 g/dL (0.4-0.6); Gamma Globulin 0.5 g/dL (0.8-1.7); Protein, Total 5.1 g/dL (6.1-8.1)
[2023-06-22 20:21] LABS: Creatinine, Random Urine 64 mg/dL (20-275); Total Protein/Creatinine Ratio 469 mg/g creat (24-184)
== END 2023-06-11 17:00 | DRG 194 ==
LOC: ANHED 18:27 → ANHIMU 20:46 → ANH3MEDSUR 06-11 14:50 → ANHIMU 06-13 11:01
PROVIDERS: Emergency Medicine; Internal Medicine Nephrology; Physician Assistant; Admitting Provider General Practice; Emergency Provider Emergency Medicine; PCP Internal Medicine; Visit Provider General Practice
DX: J10.1 Influenza due to other identified influenza virus with other respiratory manifestations (principal); E87.1 Hypo-osmolality and hyponatremia; D64.9 Anemia, unspecified; D69.6 Thrombocytopenia, unspecified; D72.818 Other decreased white blood cell count; E78.5 Hyperlipidemia, unspecified; E87.6 Hypokalemia; I10 Essential (primary) hypertension; N32.81 Overactive bladder; Z86.73 Personal history of transient ischemic attack (TIA), and cerebral infarction without residual deficits; Z95.0 Presence of cardiac pacemaker; Z79.82 Long term (current) use of aspirin; Z96.0 Presence of urogenital implants; Z96.651 Presence of right artificial knee joint; M25.562 Pain in left knee; M25.561 Pain in right knee; Z11.52 Encounter for screening for COVID-19; Z20.822 Contact with and (suspected) exposure to COVID-19
CPT/HCPCS: 36415; 71045; 73562; 80048; 80053; 81001; 82533; 82570; 83735; 83883; 83930; 83935; 84155; 84156; 84165; 84166; 84300; 84443; 84540; 85025; 85027; 86334; 86335; 87635; 87637; 93005; 96361; 96374; 96375; 97110; 97161; 97165; 97530; 97535; 99285; A9270; G0378; J0360; J1650; J7030

== ENCOUNTER 2023-11-07 15:02 | Emergency (ER) | payer MEDICARE, SELFPAY ==
[2023-11-07 15:08] VITALS: BP 180/97; PULSE 62; RESP 18; TEMP 36.6; O2SAT 100
[2023-11-07 16:08] VITALS: BP 209/88; PULSE 72; RESP 14; O2SAT 99
[2023-11-07 16:21] VITALS: BP 224/92; PULSE 69; RESP 13; O2SAT 99
--- NOTE | 2023-11-07 16:40 | ED.RECABL ---
HPI - Recheck/Abnormal Lab/Rx General Chief Complaint: Recheck/Abnormal Lab/Rx Stated Complaint: htn Time Seen by Provider: 11/07/23 15:58 History of Present Illness HPI narrative: Patient is an 88-year-old female, presenting for evaluation of hypertension. Patient states that she had eye surgery earlier today. She did not take her morning medicines due to the surgery. She was given a small dose of ketamine for sedation and the surgery was performed without complication until they noted her blood pressure being elevated. It was in the 180s to 200 systolic so they told her to come to the ER. She denies any complaints. She denies chest pain, shortness of breath, vision changes, confusion, nausea or vomiting. States that she feels very well actually. Related Data Home Medications Medication Instructions Recorded Confirmed aspirin 81 mg tablet,delayed 81 mg PO DAILY 10/13/21 06/14/23 release solifenacin 5 mg tablet (Vesicare) 5 mg PO DAILY 10/13/21 06/14/23 multivitamin (Daily-Holly tablet) 1 tablet PO DAILY 05/03/23 06/14/23 Allergies Allergy/AdvReac Type Severity Reaction Status Date / Time atorvastatin Allergy Unknown Other Verified 11/07/23 15:21 clonidine Allergy Unknown Unknown Verified 11/07/23 15:21 nifedipine Allergy Unknown Unknown Verified 11/07/23 15:21 amlodipine AdvReac Anaphylaxis Verified 11/07/23 15:21 losartan AdvReac Anaphylaxis Verified 11/07/23 15:21 metoprolol Allergy Unknown Unknown Uncoded 11/07/23 15:21 repatha Allergy Unknown Unknown Uncoded 11/07/23 15:21 tramadol Allergy Unknown Unknown Uncoded 11/07/23 15:21 Review of Systems Review of Systems: All systems reviewed & are unremarkable except as noted in HPI and below PMFSH Past Medical History Medical History Anemia Chronic hyponatremia Hyperlipidemia due to dietary fat intake Hypertension Ischemic stroke Overactive bladder Surgical History Surgical History History of arthroplasty of right knee History of permanent cardiac pacemaker placement History of renal stent Family History Family History Mother CAD (coronary artery disease) Social History Social History Social History: Surrogate medical decision maker: Aura Perez, daughter. Code status: Full code. Smoking status: Never smoker Second hand tobacco smoke exposure: No Alcohol intake: never Substance use: never Substance use type: does not use Do You Feel Safe in your Home?: Yes Lack of Transportation: No Lack of Food: Never True Current Housing: I Have Housing Concerned About Future Housing: No Difficulty Paying Gas/Electric Bills: No Difficulty Paying for Meds: No Currently Unemployed: No Education: High School Diploma/GED Difficulty w/ Childcare or Family Care: No Living arrangements: assisted living Additional living arrangements comments: . Lives in assisted living at [facility]. Occupation/Education: retired Additional occupation/education comments: Retired from working at a [employer]. Spiritual care concerns: No Exam Narrative: GENERAL: Well-appearing, in no acute distress, very pleasant and cooperative HEAD: Normocephalic, atraumatic. EYES: PERRLA and EOMI. Clear eye shield in place over left eye ENT: Grossly unremarkable NECK: Supple. CHEST: Clear to auscultation. No respiratory distress. HEART: Regular rate and rhythm ABDOMEN: Soft, nontender, nondistended EXTREMITIES: Normal range of motion. No edema. SKIN: Warm, dry, no rash. NEURO: No focal deficits. Alert and oriented x3. PSYCH: Normal mood and affect. Course Vital Signs Vital signs: Vital Signs Temperature 97.8 F 11/07/23 15:08 Pulse Rate 62 11/07/23 15:08 Respiratory Rate 18 11/07/23 15
[2023-11-07 16:41] VITALS: BP 231/202; PULSE 77; RESP 22
[2023-11-07 16:49] VITALS: BP 211/90; PULSE 76; RESP 15; O2SAT 95
== END 2023-11-07 17:54 ==
PROVIDERS: Emergency Provider Emergency Medicine; PCP Internal Medicine
DX: I10 Essential (primary) hypertension (principal); E87.1 Hypo-osmolality and hyponatremia; E78.5 Hyperlipidemia, unspecified; N32.81 Overactive bladder; Z96.651 Presence of right artificial knee joint; Z95.0 Presence of cardiac pacemaker; Z86.73 Personal history of transient ischemic attack (TIA), and cerebral infarction without residual deficits; Z86.2 Personal history of diseases of the blood and blood-forming organs and certain disorders involving the immune mechanism; Z79.82 Long term (current) use of aspirin; Z79.899 Other long term (current) drug therapy
CPT/HCPCS: 99281

== ENCOUNTER 2023-11-08 14:29 | Outpatient (CLI) | payer MEDICARE, SELFPAY ==
[2023-11-08 15:16] LABS: Basophils Percent Auto 0.7 % (0.2-1.2); Eosinophils Absolute Auto 0.1 K/mm3 (0-0.3); Hematocrit 34.3 % (37.0-47.0); Hemoglobin 11.2 g/dL (12.0-15.0); Immature Granulocyte Absolute 0.02 K/mm3 (0.00-0.031); Immature Granulocyte Percent A 0.5 % (0-0.5); Lymphocytes Absolute Auto 0.77 K/mm3 (0.9-3.2); Lymphocytes Percent Auto 17.5 % (18.3-44.2); Mean Corpuscular HGB Conc 32.7 g/dl (32-36); Mean Corpuscular Hemoglobin 32.5 pg (26-34); Mean Corpuscular Volume 99.4 fl (80-100); Mean Platelet Volume 8.7 fl (7.4-10.4); Monocytes Percent Auto 21.8 % (2.6-8.5); Neutrophils Absolute Auto 2.5 K/mm3 (1.3-6.7); Neutrophils Percent Auto 57.5 % (45.5-73.1); Platelet Count Result 202 k/mm3 (150-375); Red Blood Count 3.45 M/mm3 (4.2-5.4); Red Cell Distribution Width 14.9 % (11.5-14.5); White Blood Count 4.4 K/mm3 (4.5-10.0)
[2023-11-08 15:31] LABS: Alanine Aminotransferase 10 U/L (6-35); Albumin Level 4.1 g/dL (3.5-5.1); Alkaline Phosphatase 67 U/L (38-126); Anion Gap 9 mmol/L (4-12); Aspartate Amino Transferase 19 U/L (14-36); Bilirubin,Total 0.7 mg/dL (0.2-1.3); Blood Urea Nitrogen 20 mg/dL (7-17); Calcium 9.2 mg/dL (8.4-10.2); Carbon Dioxide 26 mmol/L (22-30); Chloride 98 mmol/L (98-107); Estimated Glomerular Filt Rate > 60; Glucose 106 mg/dL (65-110); Potassium 4.6 mmol/L (3.4-5.0); Sodium 133 mmol/L (137-145)
== END 2023-11-08 14:30 | disposition home or self-care (01) ==
PROVIDERS: PCP Internal Medicine; Visit Provider Internal Medicine
DX: I63.9 Cerebral infarction, unspecified (principal); E87.1 Hypo-osmolality and hyponatremia; I10 Essential (primary) hypertension
CPT/HCPCS: 36415; 80053; 85025

== ENCOUNTER 2023-11-10 11:26 | Outpatient (NON) | payer MEDICARE, SELFPAY ==
[2023-11-10 11:49] LABS: Appearance Urine Clear (Clear); Bilirubin Urine Negative (Negative); Blood Urine Negative (Negative); Color Urine Yellow (Yellow); Glucose Urine UA Negative (Negative); Ketones Urine Negative (Negative); Leukocyte Esterase Ur Negative LEU/UL (Negative); Nitrate Urine Negative (Negative); Protein Urine Negative (Negative); Specific Grav Ur 1.015 (1.001-1.035)
[2023-11-10 12:01] LABS: Add Urine Microscopic? NO
== END 2023-11-10 11:27 | disposition home or self-care (01) ==
PROVIDERS: PCP Internal Medicine; Visit Provider Internal Medicine
DX: R30.0 Dysuria (principal)
CPT/HCPCS: 81003

== ENCOUNTER 2023-11-14 08:21 | Inpatient (IN) | payer MEDICARE, SELFPAY ==
[2023-11-14] VITALS (10 sets, daily range): BP systolic 149–247; BP diastolic 65–111; PULSE 64–83; RESP 16–18; TEMP 36.2–36.8; O2SAT 97–100
--- NOTE | ~2023-11-14 | CT_ITS ---
EXAMINATION: CT knee RT wo con DATE: 11/14/2023 13:04 INDICATION: Right knee pain. Fall. TECHNIQUE: Computed tomography (CT) of the right knee was performed without intravenous contrast. Aut omated exposure control and iterative reconstruction technique were employed. The dose-length product was 619.16 mGy-cm. COMPARISON: Right knee radiographs 11/14/2023 FINDINGS: There is a total right knee arthroplasty with patellar resurfacing in near-anatomic alignme nt. No fracture. No periprosthetic lucency to suggest loosening or infection. There is a moderate-siz ed knee joint effusion. IMPRESSION: 1. 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 2. Moderate-sized knee joint effusion. Reviewed, dictated and finalized at location A.
--- NOTE | ~2023-11-14 | XR_ITS ---
EXAMINATION: XR hip RT 2V w AP pelvis DATE: 11/15/2023 13:21 INDICATION: Right hip injury. TECHNIQUE: An anteroposterior view of the pelvis and 2 views of right hip were obtained. COMPARISON: Pelvis radiograph 11/14/2023 FINDINGS: There is lumbar levocurvature and severe spondylosis. No fracture. There is severe osteoart hritis of the hips. Osteitis pubis is noted. IMPRESSION: 1. No fracture. 2. Severe osteoarthritis of the hips. Reviewed, dictated and finalized at location A.
--- NOTE | ~2023-11-14 | XR_ITS ---
EXAMINATION: XR knee RT 3V DATE: 11/14/2023 09:01 INDICATION: Right knee pain. Fall. TECHNIQUE: 3 views of right knee were obtained. COMPARISON: Right knee radiographs 06/08/2023 FINDINGS: There is a total right knee arthroplasty with patellar resurfacing in near-anatomic alignme nt. No fracture. No periprosthetic lucency to suggest loosening or infection. There is a small knee j oint effusion. IMPRESSION: 1. 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 2. Small right knee joint effusion. Reviewed, dictated and finalized at location A.
--- NOTE | ~2023-11-14 | XR_ITS ---
SINGLE AP VIEW PELVIS Ordering provider: Santi Blair MD History: . Fall . Comparison: None. FINDINGS: BONES: No acute fracture or dislocation. HIP JOINT SPACES: Bilateral hip severe osteoarthritic changes. Se cyanotic SACROILIAC JOINT SPACES/LUMBAR SPINE: The sacroiliac joint spaces are normal. Mild degenerative babb es of the visualized lower lumbar spine. PUBIC SYMPHYSIS: Normal. SOFT TISSUES: Normal. IMPRESSION: No acute osseous abnormality pelvis. Reviewed, dictated and finalized at location A.
--- NOTE | ~2023-11-14 | XR_ITS ---
XR chest 1V portable Ordering provider: Santi Blair MD History: 88 years Female with . Fall . Comparison: June 07, 2023 FINDINGS: MEDIASTINUM: The cardiac silhouette is not enlarged. Left bipolar pacemaker. LUNGS: No infiltrates, effusions or pneumothorax. OTHER: No free air under the diaphragm. Degenerative changes of the spine. IMPRESSION: No acute cardiopulmonary pathology. Reviewed, dictated and finalized at location A.
--- NOTE | 2023-11-14 09:15 | ED.GENADULT ---
HPI - General Adult General Chief complaint: Extremity Injury, Lower Stated complaint: knee pain History of Present Illness HPI narrative: This is an 88-year-old female presenting ED with chief complaint of the pain. Patient was tried to get it to her daughter's car but was unable to get into the high seat. She then ended up sliding to the ground. After that she had some pain in her right knee. No head trauma. No other injuries. She has not taken anything for pain control. Related Data Home Medications Medication Instructions Recorded Confirmed aspirin 81 mg tablet,delayed 81 mg PO DAILY 10/13/21 11/08/23 release solifenacin 5 mg tablet (Vesicare) 5 mg PO DAILY 10/13/21 11/08/23 multivitamin (Daily-Holly tablet) 1 tablet PO DAILY 05/03/23 11/08/23 ciprofloxacin HCl 0.3 % eye drops drp 11/14/23 multivitamin with folic acid 400 tablet PO 11/14/23 mcg tablet (Tab-A-Holly) prednisolone acetate 1 % eye drp 11/14/23 drops,suspension Allergies Allergy/AdvReac Type Severity Reaction Status Date / Time atorvastatin Allergy Unknown Other Verified 11/14/23 08:32 clonidine Allergy Unknown Unknown Verified 11/14/23 08:32 evolocumab Allergy Unknown Unknown Verified 11/14/23 09:17 [From Taylor Dupree] metoprolol Allergy Unknown Unknown Verified 11/14/23 09:17 nifedipine Allergy Unknown Unknown Verified 11/14/23 08:32 tramadol Allergy Unknown Unknown Verified 11/14/23 09:17 amlodipine AdvReac Anaphylaxis Verified 11/14/23 08:32 losartan AdvReac Anaphylaxis Verified 11/14/23 08:32 [facility] Past Medical History Medical History Anemia Chronic hyponatremia Hyperlipidemia due to dietary fat intake Hypertension Ischemic stroke Overactive bladder Surgical History Surgical History History of arthroplasty of right knee History of permanent cardiac pacemaker placement History of renal stent Family History Family History Mother CAD (coronary artery disease) Social History Social History Social History: Surrogate medical decision maker: Aura Perez, daughter. Code status: Full code. Smoking status: Never smoker Second hand tobacco smoke exposure: No Alcohol intake: never Substance use: never Substance use type: does not use Do You Feel Safe in your Home?: Yes Lack of Transportation: No Lack of Food: Never True Current Housing: I Have Housing Concerned About Future Housing: No Difficulty Paying Gas/Electric Bills: No Difficulty Paying for Meds: No Currently Unemployed: No Education: High School Diploma/GED Difficulty w/ Childcare or Family Care: No Living arrangements: assisted living Additional living arrangements comments: . Lives in assisted living at [facility]. Occupation/Education: retired Additional occupation/education comments: Retired from working at a bank. Spiritual care concerns: No Exam Narrative: APPEARANCE: No apparent distress. Head: atraumatic. EYES: EOMI, NOSE: Atraumatic NECK: Trachea midline RESPIRATORY: No increased rate of breathing clear auscultation CARDIOVASCULAR: RRR, ABDOMINAL: Non-distended MUSCULOSKELETAl: Focal exam of the right knee showed a well-healed surgical scar with a moderate effusion. Foot is neurovascularly intact. Some pain with active and passive extension flexion of the knee. Neurovascularly intact. NEURO: Alert. Moving 4/4 extremities SKIN:: Warm, dry. Normal color PSYCHIATRIC: Normal affect Course Vital Signs Vital signs: Vital Signs Temperature 97.4 F L 11/14/23 08:26 Pulse Rate 71 11/14/23 08:26 Respiratory Rate 16 11/14/23 08:26 Blood Pressure 241/111 H 11/14/23 08:26 Pulse Oximetry 100 11/14/23 08:26 Oxygen Delivery Room Air 11/14/23 08:26 Tem
[2023-11-14] MEDS: ACETAMINOPHEN 500 MG TABLET 1000 MG PO (09:28)
[2023-11-14 10:56] LABS: Basophils Percent Auto 0.6 % (0.2-1.2); Eosinophils Absolute Auto 0.1 K/mm3 (0-0.3); Eosinophils Percent Auto 0.9 % (0-4.4); Hematocrit 36.8 % (37.0-47.0); Hemoglobin 12.2 g/dL (12.0-15.0); Immature Granulocyte Absolute 0.01 K/mm3 (0.00-0.031); Immature Granulocyte Percent A 0.2 % (0-0.5); Lymphocytes Absolute Auto 0.57 K/mm3 (0.9-3.2); Lymphocytes Percent Auto 10.8 % (18.3-44.2); Mean Corpuscular HGB Conc 33.2 g/dl (32-36); Mean Corpuscular Hemoglobin 32.2 pg (26-34); Mean Corpuscular Volume 97.1 fl (80-100); Mean Platelet Volume 8.3 fl (7.4-10.4); Monocytes Percent Auto 18.2 % (2.6-8.5); Neutrophils Absolute Auto 3.7 K/mm3 (1.3-6.7); Neutrophils Percent Auto 69.3 % (45.5-73.1); Platelet Count Result 187 k/mm3 (150-375); Red Blood Count 3.79 M/mm3 (4.2-5.4); Red Cell Distribution Width 14.6 % (11.5-14.5); White Blood Count 5.3 K/mm3 (4.5-10.0)
[2023-11-14 11:04] LABS: Alanine Aminotransferase 10 U/L (6-35); Alkaline Phosphatase 77 U/L (38-126); Anion Gap 8 mmol/L (4-12); Aspartate Amino Transferase 20 U/L (14-36); Blood Urea Nitrogen 19 mg/dL (7-17); Calcium 9.1 mg/dL (8.4-10.2); Carbon Dioxide 27 mmol/L (22-30); Chloride 96 mmol/L (98-107); Estimated CRCL calculation 47 ml/min; Estimated Glomerular Filt Rate > 60; Glucose 97 mg/dL (65-110); Potassium 4.1 mmol/L (3.4-5.0); Sodium 131 mmol/L (137-145)
[2023-11-14] MEDS: lisinopriL 20 MG TABLET 40 MG PO (11:41)
[2023-11-14] MEDS: carvediloL 3.125 MG TABLET PO ×2 (11:42→21:43)
[2023-11-14 11:47] LABS: Appearance Urine Clear (Clear); Bilirubin Urine Negative (Negative); Blood Urine Negative (Negative); Color Urine Yellow (Yellow); Glucose Urine UA Negative (Negative); Ketones Urine Negative (Negative); Leukocyte Esterase Ur Negative LEU/UL (Negative); Nitrate Urine Negative (Negative); Protein Urine Negative (Negative); Specific Grav Ur 1.011 (1.001-1.035); Urobilinogen Urine 0.2 mg/dL (<2.0)
[2023-11-14 11:49] LABS: Add Urine Microscopic? NO
--- NOTE | 2023-11-14 13:39 | PCCCNOTE ---
Met with pt and her daughter, regarding discharge plans and pt states she is a resident of [facility] and has to be one person assist to return to them. Pt is agreeable to going to rehab at discharge and prefers [facility] [place]. Contacted rep Dianne at [facility] and she has no beds available until tomorrow and will screen pt at that time.
--- NOTE | 2023-11-14 14:30 | PM.IMHP ---
H&P: HPI History of Present Illness Date/Time: 11/14/23 14:45 Chief Complaint: Right knee pain after fall. Narrative: This is a pleasant 88-year-old female with history of cerebrovascular accident, hypertension, hyperlipidemia, overactive bladder, anemia and osteoarthritis status post right knee arthroplasty who presented to the emergency department via EMS from [facility] for evaluation of right knee pain after a fall. The patient provides the following history. The patient had a routine doctor's appointment today and her daughter came to pick her up. The daughter has an SUV and she has a stool for the patient to use to get up into the car. Unfortunately the patient lost her balance on the stool and fell down to the ground, landing on her right knee. She has had pain and swelling in that knee since the fall which has limited her ability to stand and walk. She has sustained no other injuries and denies head trauma and loss of consciousness. She also denies syncope, near syncope, recent cold and flu symptoms, chest pain, shortness of breath, cough, nausea, vomiting, and diarrhea In the ED: Blood pressures have been running in the 190s to low 200 systolic over 60s diastolic. CMP and CBC did not show any significant changes compared to prior labs. Urinalysis was unremarkable. Imaging of the knee showed moderate size knee joint effusion with no acute findings. She has not been able to ambulate safely in the ED and is being admitted for PT/OT and possible rehab placement. Review of Systems Review of Systems: 12 systems were reviewed and are negative except for as per HPI. [facility] Past Medical History Medical History Anemia Chronic hyponatremia Hyperlipidemia Hypertension Ischemic stroke Overactive bladder Surgical History Surgical History History of arthroplasty of right knee History of permanent cardiac pacemaker placement History of renal stent Family History Family History Mother CAD (coronary artery disease) Social History Social History Social History: Surrogate medical decision maker: Aura Perez, daughter. Code status: Do not resuscitate. Smoking status: Never smoker Second hand tobacco smoke exposure: No Alcohol intake: never Substance use: never Substance use type: does not use Do You Feel Safe in your Home?: Yes Lack of Transportation: No Lack of Food: Never True Current Housing: I Have Housing Concerned About Future Housing: No Difficulty Paying Gas/Electric Bills: No Difficulty Paying for Meds: No Currently Unemployed: No Education: High School Diploma/GED Difficulty w/ Childcare or Family Care: No Living arrangements: assisted living Additional living arrangements comments: . Lives in assisted living at [facility]. Occupation/Education: retired Additional occupation/education comments: Retired from working at a [employer]. Spiritual care concerns: No Meds Home Medications and Allergies Home Medications Medication Instructions Recorded Confirmed Type aspirin 81 mg tablet,delayed 81 mg PO DAILY 10/13/21 11/14/23 History release solifenacin 5 mg tablet (Vesicare) 5 mg PO DAILY 10/13/21 11/08/23 History docusate sodium 100 mg capsule 100 mg PO Q12HR #60 caps 10/18/21 11/08/23 Rx carvedilol 3.125 mg tablet (Coreg) 3.125 mg PO BIDWM 30 days #60 tabs 02/07/22 11/14/23 Rx lisinopril 40 mg tablet 40 mg PO DAILY #90 tabs 05/03/23 11/14/23 Rx multivitamin (Daily-Holly tablet) 1 tablet PO DAILY 05/03/23 11/14/23 History furosemide 20 mg tablet (Lasix) 10 mg PO BID #30 tabs 06/11/23 11/14/23 Rx sodium chloride 1,000 mg soluble 500 mg PO BID #60 tabs 06/11/23 11/08/23 Rx tablet megestrol 40 mg tablet 40
--- NOTE | 2023-11-14 14:32 | ADMGEN ---
This patient, Christi Perez, was admitted to Medical Room 252-01. Patient/family oriented to hospital policies and general routines including ID bracelet, bed and alarms, visiting hours, pain management, procedures, bathroom and other care routines, personal items, smoking policy, room service/diet, and visiting hours. Information on how to activate the Rapid Response Team has been discussed. Patient/Family are encouraged to report perceived risks to care and to ask questions if they do not understand what they are told or what they should do.
[2023-11-14] MEDS: ACETAMINOPHEN 325 MG TABLET 650 MG PO (20:07)
[2023-11-14] MEDS: FUROSEMIDE 10 MG TABLET PO (21:43)
[2023-11-14] MEDS: prednisoLONE ACETATE 1% OPHTH 5 ML 1 DROP LEFT EYE (21:43)
[2023-11-14] MEDS: CIPROFLOXACIN HCL 0.3% OP SOLN 2.5 ML BTL 1 DROP LEFT EYE (21:43)
[2023-11-15] VITALS (8 sets, daily range): BP systolic 117–164; BP diastolic 64–84; PULSE 68–78; RESP 16–18; TEMP 35.9–36.5; O2SAT 94–98
[2023-11-15 03:53] LABS: Hematocrit 32.9 % (37.0-47.0); Mean Corpuscular HGB Conc 33.4 g/dl (32-36); Mean Corpuscular Hemoglobin 32.4 pg (26-34); Mean Corpuscular Volume 97.1 fl (80-100); Mean Platelet Volume 8.6 fl (7.4-10.4); Platelet Count Result 193 k/mm3 (150-375); Red Blood Count 3.39 M/mm3 (4.2-5.4); Red Cell Distribution Width 14.6 % (11.5-14.5); White Blood Count 4.7 K/mm3 (4.5-10.0)
[2023-11-15 04:05] LABS: Anion Gap 9 mmol/L (4-12); Blood Urea Nitrogen 17 mg/dL (7-17); Carbon Dioxide 25 mmol/L (22-30); Chloride 96 mmol/L (98-107); Estimated CRCL calculation 47 ml/min; Estimated Glomerular Filt Rate > 60; Glucose 88 mg/dL (65-110); Magnesium 1.9 mg/dL (1.6-2.3); Potassium 3.9 mmol/L (3.4-5.0); Sodium 130 mmol/L (137-145)
[2023-11-15] MEDS: ASPIRIN 81 MG ENTERIC TABLET PO (08:34)
[2023-11-15] MEDS: SODIUM CHLORIDE 1 GM TABLET PO (08:34)
[2023-11-15] MEDS: SOLIFENACIN 5 MG TABLET PO (08:34)
[2023-11-15] MEDS: lisinopriL 20 MG TABLET 40 MG PO (08:34)
[2023-11-15] MEDS: carvediloL 3.125 MG TABLET PO ×2 (08:34→20:41)
[2023-11-15] MEDS: MULTIVITAMINS THERAPEUTIC TAB (*BKC) 1 TABLET PO (08:34)
[2023-11-15] MEDS: FUROSEMIDE 10 MG TABLET PO ×2 (08:35→17:32)
[2023-11-15] MEDS: ACETAMINOPHEN 325 MG TABLET 650 MG PO ×2 (08:35→17:32)
[2023-11-15] MEDS: CIPROFLOXACIN HCL 0.3% OP SOLN 2.5 ML BTL 1 DROP LEFT EYE ×3 (08:36→17:32)
[2023-11-15] MEDS: prednisoLONE ACETATE 1% OPHTH 5 ML 1 DROP LEFT EYE ×3 (08:36→17:32)
--- NOTE | 2023-11-15 08:46 | PM.IMPN ---
Progress Note: A&P Assessment and Plan (1) Ground-level fall: Code(s): W18.30XA - Fall on same level, unspecified, initial encounter Status: Acute Assessment and Plan: 11/15/23: Patient sustained a ground level fall when she tried to get in her daughter's vehicle causing her to land on her right knee Right knee x-ray shows total knee arthroplasty in good position, small effusion CT of right knee showing total knee arthroplasty in good position, moderate knee effusion PT and OT ordered Case Management consulted for potential rehab needs (2) Right knee pain: Code(s): M25.561 - Pain in right knee Status: Acute Assessment and Plan: 11/15/23: Right knee x-ray shows total knee arthroplasty in good position, small effusion CT of right knee showing total knee arthroplasty in good position, moderate knee effusion Continue pain control Ice and elevate as needed PT and OT Ortho consulted for possible aspiration/injection (3) Effusion of right knee: Code(s): M25.461 - Effusion, right knee Status: Acute Assessment and Plan: 11/15/23: See above (4) Poorly-controlled hypertension: Code(s): I10 - Essential (primary) hypertension Status: Chronic Assessment and Plan: 11/15/23: Blood pressures ranging 241/111 to 198/70 initially Patient was started on Coreg and lisinopril while in the ED Current blood pressures ranging 149/84 to 164/72 Hydralazine 10 mg ordered Q 8 hour p.r.n. for greater than 160 systolic (5) Chronic hyponatremia: Code(s): E87.1 - Hypo-osmolality and hyponatremia Status: Chronic Assessment and Plan: 11/15/23: Sodium 130 Appears to be chronic and higher than previous trend of 123-127 Continue sodium chloride 1 g daily Continue to monitor labs Time Spent With Patient Time with patient: Greater than 35 minutes Subjective Date/time seen: 11/15/23 08:46 Interval history: Interval history: This is an 88-year-old female who presented to the hospital from [facility] on 11/14/2023 with complaints of right knee pain after sustaining a fall. Workup in the hospital included a knee x-ray which shown a total right knee arthroplasty in near anatomic alignment, small right knee joint effusion. Chest x-ray was negative. Pelvis x-ray was also negative. CT scan of right knee shows total right knee arthroplasty in near anatomic alignment, moderate size knee joint effusion. Initial labs showed white blood cell count of 4.7, hemoglobin 11.0, sodium 130, chloride 96. Patient was given lisinopril, Coreg, and Tylenol while in the ED. 11/15/23: Patient denies any fever, chills, nausea, vomiting, diarrhea, abdominal pain, chest pain, shortness a breath, lightheadedness, dizziness, headache,/tingling. Patient endorses right knee pain and swelling. Labs reviewed. Review of Systems Review of Systems: All systems reviewed & are unremarkable except as noted in HPI and below Constitutional: Constitutional: Reports as per HPI and Reports no additional constitutional complaints Eyes: Eyes: Reports as per HPI and Reports no additional eye complaints ENT: Reports system reviewed and no additional complaints, except as documented and Reports as per HPI Cardiovascular: Cardiovascular: Reports as per HPI and Reports no additional cardiovascular complaints Respiratory: Respiratory: Reports as per HPI and Reports no additional respiratory complaints Gastrointestinal: Gastrointestinal: Reports as per HPI and Reports no additional gastrointestinal complaints Genitourinary: Genitourinary: Reports no additional female genitourinary complaints and Reports as per HPI Musculoskeletal: Musculoskeletal: Reports no additional musculoskeletal complaints and Reports as per HPI Integumentary/Breasts: Skin/Breast: Reports system reviewed and no additional complaints, except as docu and Reports as per HPI Neurologic: Repor
[2023-11-15] MEDS: MEGESTROL ACETATE (*CHEMO) 40 MG TABLET PO ×3 (10:16→17:32)
--- NOTE | 2023-11-15 11:00 | PCOTNOTE ---
Attempted to see pt for OT evaluation however pt is very lethargic and once awakened, pt refusing to participate due to fatigue. Will continue to follow.
[2023-11-15 16:49] LABS: CRP 6.2 mg/dL (<1.0)
--- NOTE | 2023-11-15 18:11 | PC.NURSE ---
Dr Gallegos jared needle specimen from right knee for culture, he will be sending culture to lab for analysis
--- NOTE | 2023-11-15 18:14 | PM.CNOR ---
Assessment and Plan Assessment and plan (1) Effusion of right knee: Code(s): M25.461 - Effusion, right knee Status: Acute (2) Right knee pain: Qualifiers: Chronicity: acute Qualified Code(s): M25.561 - Pain in right knee Code(s): M25.561 - Pain in right knee Status: Acute History of Present Illness HPI Consult date: 11/15/23 Chief complaint: Knee Pain Narrative: Patient is an 88-year-old female who was admitted through the emergency room yesterday after falling out of and elevated SUV landing directly onto her right patella. She was unable to bear weight after this brought to the emergency room. She had an AP pelvis x-ray which showed severe arthritis of the right hip no obvious fracture and she had plain x-rays which show a Depuy SSK cemented total knee replacement with Press-Fit rods which is a patient who underwent knee replacement more than 10 years ago. She cannot recall exactly when it was done. It may have been 15 years ago. She presented to the emergency room unable to bear weight and a prominent intra-articular effusion versus hemarthrosis on the right knee. Her past medical history is reviewed. She was also found to have uncontrolled hypertension. She is on hydralazine currently and hospitalist is addressing that. She would continue to be unable to ambulate with physical therapy this morning and therefore I was consulted. I obtained additionally AP and lateral views of the right hip which show severe osteoarthritis the right hip but no definite evidence of fracture. This does not rule out occult fracture of the proximal femur however. Patient denies any pain up in the hip area today. I also ordered a C-reactive protein and sedimentation rate. The sedimentation rate is pending but the C-reactive protein was elevated at 6.3. Normal is less than 1. This is nonspecific but does not rule out occult periprosthetic infection. I asked the patient if she was having any pain in her knee before her fall. She said she did not think so but when I asked her again if she was certain she was unsure. I think she does have some memory loss but she does have good memory for what happened yesterday when she fell. Her only injury was to her right knee. Physical examination: On exam she is a very pleasant female in no acute distress. She is a little bit somnolent. There is a dark jiménez ecchymosis over the anterior aspect of the patella approximately 1/2 inches in diameter. There is faint her purplish bruising over the medial retinaculum. There is a fairly tight effusion. She had range of motion from 10? to 60 and complaint of diffuse pain clean the posterior aspect of her knee with this degree of flexion. There was no steffanie instability to varus valgus stress but she did complain of pain with these maneuvers. She had moderate parapatellar tenderness. There is no erythema. She had no swelling in the calf or ankle. She had 2+ dorsalis pedis pulse denied numbness or tingling in the right foot and did have active motor function at the right ankle. She could not do a Stinchfield maneuver. When I supported the thigh my hand into the distal thigh she could not maintain full extension complaining of severe pain as a let go and she was able to hold it at about 45? of flexion against away gravity but with significant pain. When I carefully passively rotated her right hip internally and externally she denied pain and I could abduct the hip 20? and she denied pain with this when I did very slowly and carefully to not put stress on the knee. She does not have severe tenderness over the quad tendon patella or patellar tendon nor could I feel evidence of defect palpably in the structures. Impression: Patient has a significant effusion in her right knee which is periprosthetic. It does not sound like she has prodrome will symptoms suggesting she has a chronic infection but this can not be ruled out and because she does not
[2023-11-15 18:26] LABS: Erythrocyte Sedimentation Rate 72 mm/hr (0-20)
[2023-11-15] MEDS: ceFAZolin 2 GM/D5W 50 ML 2 GM/50 ML BAG IVPB (18:32)
[2023-11-15] MEDS: DOCUSATE SODIUM 100 MG CAPSULE PO (20:40)
[2023-11-15] MEDS: ACETAMINOPHEN 500 MG TABLET 1000 MG PO (23:06)
[2023-11-16] VITALS (8 sets, daily range): BP systolic 133–185; BP diastolic 52–69; PULSE 62–78; RESP 16–20; TEMP 36.3–36.6; O2SAT 96–100
--- NOTE | 2023-11-16 08:49 | P.PNIM_ITS ---
Progress Note: A&P Assessment and Plan (1) Ground-level fall: Code(s): W18.30XA - Fall on same level, unspecified, initial encounter Status: Acute Assessment and Plan: 11/15/23: * Patient sustained a ground level fall when she tried to get in her daughter's vehicle causing her to land on her right knee * Right knee x-ray shows total knee arthroplasty in good position, small effusion * CT of right knee showing total knee arthroplasty in good position, moderate knee effusion * PT and OT ordered * Case Management consulted for potential rehab needs 11/16/23: * Continue with current treatment plan (2) Right knee pain: Qualifiers: Chronicity: acute Qualified Code(s): M25.561 - Pain in right knee Code(s): M25.561 - Pain in right knee Status: Acute Assessment and Plan: 11/15/23: * Right knee x-ray shows total knee arthroplasty in good position, small effusion * CT of right knee showing total knee arthroplasty in good position, moderate knee effusion * Continue pain control * Ice and elevate as needed * PT and OT * Ortho consulted for possible aspiration/injection 11/16/23: * Ortho following and did an aspiration of the knee, 15ml of dark blood aspirated and sent for culture to rule out infectious process * TTWB on right side * Knee immobilizer ordered by ortho * Continue PT and OT * Case management following for rehab needs * Will order lidocaine patch (3) Effusion of right knee: Code(s): M25.461 - Effusion, right knee Status: Acute Assessment and Plan: 11/15/23: * See above (4) Poorly-controlled hypertension: Code(s): I10 - Essential (primary) hypertension Status: Chronic Assessment and Plan: 11/15/23: * Blood pressures ranging 241/111 to 198/70 initially * Patient was started on Coreg and lisinopril while in the ED * Current blood pressures ranging 149/84 to 164/72 * Hydralazine 10 mg ordered Q 8 hour p.r.n. for greater than 160 systolic 11/16/23: * Blood pressures ranging 117/84 to 155/64 * Continue with current treatment plan (5) Chronic hyponatremia: Code(s): E87.1 - Hypo-osmolality and hyponatremia Status: Chronic Assessment and Plan: 7/31/24: * Sodium 130 * Appears to be chronic and higher than previous trend of 123-127 * Continue sodium chloride 1 g daily * Continue to monitor labs 11/16/23: * Na+ 131 * Continue to trend Time Spent With Patient Time with patient: Greater than 35 minutes Subjective Date/time seen: 11/16/23 08:49 Interval history: Interval history: This is an 88-year-old female who presented to the hospital from [facility] on 11/14/2023 with complaints of right knee pain after sustaining a fall. Workup in the hospital included a knee x-ray which shown a total right knee arthroplasty in near anatomic alignment, small right knee joint effusion. Chest x-ray was negative. Pelvis x-ray was also negative. CT scan of right knee shows total right knee arthroplasty in near anatomic alignment, moderate size knee joint effusion. Initial labs showed white blood cell count of 4.7, hemoglobin 11.0, sodium 130, chloride 96. Patient was given lisinopril, Coreg, and Tylenol while in the ED. 11/15/23: Patient denies any fever, chills, nausea, vomiting, diarrhea, abdominal pain, chest pain, shortness a breath, lightheadedness, dizziness, headache,/tingling. Patient endorses right knee pain and swelling. Labs reviewed. 11/16/23: Patient denies any events overnight. She do
--- NOTE | 2023-11-16 08:49 | PM.IMPN ---
Progress Note: A&P Assessment and Plan (1) Ground-level fall: Code(s): W18.30XA - Fall on same level, unspecified, initial encounter Status: Acute Assessment and Plan: 11/15/23: Patient sustained a ground level fall when she tried to get in her daughter's vehicle causing her to land on her right knee Right knee x-ray shows total knee arthroplasty in good position, small effusion CT of right knee showing total knee arthroplasty in good position, moderate knee effusion PT and OT ordered Case Management consulted for potential rehab needs 11/16/23: Continue with current treatment plan (2) Right knee pain: Qualifiers: Chronicity: acute Qualified Code(s): M25.561 - Pain in right knee Code(s): M25.561 - Pain in right knee Status: Acute Assessment and Plan: 11/15/23: Right knee x-ray shows total knee arthroplasty in good position, small effusion CT of right knee showing total knee arthroplasty in good position, moderate knee effusion Continue pain control Ice and elevate as needed PT and OT Ortho consulted for possible aspiration/injection 11/16/23: Ortho following and did an aspiration of the knee, 15ml of dark blood aspirated and sent for culture to rule out infectious process TTWB on right side Knee immobilizer ordered by ortho Continue PT and OT Case management following for rehab needs Will order lidocaine patch (3) Effusion of right knee: Code(s): M25.461 - Effusion, right knee Status: Acute Assessment and Plan: 11/15/23: See above (4) Poorly-controlled hypertension: Code(s): I10 - Essential (primary) hypertension Status: Chronic Assessment and Plan: 11/15/23: Blood pressures ranging 241/111 to 198/70 initially Patient was started on Coreg and lisinopril while in the ED Current blood pressures ranging 149/84 to 164/72 Hydralazine 10 mg ordered Q 8 hour p.r.n. for greater than 160 systolic 11/16/23: Blood pressures ranging 117/84 to 155/64 Continue with current treatment plan (5) Chronic hyponatremia: Code(s): E87.1 - Hypo-osmolality and hyponatremia Status: Chronic Assessment and Plan: 11/15/23: Sodium 130 Appears to be chronic and higher than previous trend of 123-127 Continue sodium chloride 1 g daily Continue to monitor labs 11/16/23: Na+ 131 Continue to trend Time Spent With Patient Time with patient: Greater than 35 minutes Subjective Date/time seen: 11/16/23 08:49 Interval history: Interval history: This is an 88-year-old female who presented to the hospital from [facility] on 11/14/2023 with complaints of right knee pain after sustaining a fall. Workup in the hospital included a knee x-ray which shown a total right knee arthroplasty in near anatomic alignment, small right knee joint effusion. Chest x-ray was negative. Pelvis x-ray was also negative. CT scan of right knee shows total right knee arthroplasty in near anatomic alignment, moderate size knee joint effusion. Initial labs showed white blood cell count of 4.7, hemoglobin 11.0, sodium 130, chloride 96. Patient was given lisinopril, Coreg, and Tylenol while in the ED. 11/15/23: Patient denies any fever, chills, nausea, vomiting, diarrhea, abdominal pain, chest pain, shortness a breath, lightheadedness, dizziness, headache,/tingling. Patient endorses right knee pain and swelling. Labs reviewed. 11/16/23: Patient denies any events overnight. She does still report right knee pain and has been working with PT and OT. She is requiring 2 assist to max assist with transfers and ambulation. Review of Systems Review of Systems: 12 systems were reviewed and are negative except for as per HPI. All systems reviewed & are unremarkable except as noted in HPI and below Constitutional: Constitutional: Reports as per HPI and Reports no additional constitutional complaints Eyes: Eyes: Reports
[2023-11-16 09:29] LABS: Basophils Percent Auto 0.5 % (0.2-1.2); Eosinophils Absolute Auto 0.1 K/mm3 (0-0.3); Eosinophils Percent Auto 1.1 % (0-4.4); Hematocrit 34.5 % (37.0-47.0); Hemoglobin 11.3 g/dL (12.0-15.0); Immature Granulocyte Absolute 0.02 K/mm3 (0.00-0.031); Immature Granulocyte Percent A 0.4 % (0-0.5); Lymphocytes Absolute Auto 0.88 K/mm3 (0.9-3.2); Lymphocytes Percent Auto 15.4 % (18.3-44.2); Mean Corpuscular HGB Conc 32.8 g/dl (32-36); Mean Corpuscular Hemoglobin 32.4 pg (26-34); Mean Corpuscular Volume 98.9 fl (80-100); Mean Platelet Volume 8.7 fl (7.4-10.4); Monocytes Percent Auto 16.6 % (2.6-8.5); Neutrophils Absolute Auto 3.8 K/mm3 (1.3-6.7); Platelet Count Result 210 k/mm3 (150-375); Red Blood Count 3.49 M/mm3 (4.2-5.4); White Blood Count 5.7 K/mm3 (4.5-10.0)
[2023-11-16] MEDS: lisinopriL 20 MG TABLET 40 MG PO (09:33)
[2023-11-16] MEDS: SODIUM CHLORIDE 1 GM TABLET PO (09:33)
[2023-11-16] MEDS: ASPIRIN 81 MG CHEWABLE TABLET PO ×2 (09:33→18:14)
[2023-11-16] MEDS: FUROSEMIDE 10 MG TABLET PO ×2 (09:33→18:14)
[2023-11-16] MEDS: MULTIVITAMINS THERAPEUTIC TAB (*BKC) 1 TABLET PO (09:34)
[2023-11-16] MEDS: SOLIFENACIN 5 MG TABLET PO (09:34)
[2023-11-16] MEDS: MEGESTROL ACETATE (*CHEMO) 40 MG TABLET PO ×3 (09:35→18:14)
[2023-11-16] MEDS: CIPROFLOXACIN HCL 0.3% OP SOLN 2.5 ML BTL 1 DROP LEFT EYE ×3 (09:35→18:15)
[2023-11-16] MEDS: DOCUSATE SODIUM 100 MG CAPSULE PO ×2 (09:35→20:03)
[2023-11-16] MEDS: prednisoLONE ACETATE 1% OPHTH 5 ML 1 DROP LEFT EYE ×3 (09:35→18:15)
[2023-11-16] MEDS: carvediloL 3.125 MG TABLET PO ×2 (09:35→20:03)
[2023-11-16 09:51] LABS: Alanine Aminotransferase 9 U/L (6-35); Albumin Level 3.7 g/dL (3.5-5.1); Alkaline Phosphatase 60 U/L (38-126); Anion Gap 10 mmol/L (4-12); Aspartate Amino Transferase 18 U/L (14-36); Blood Urea Nitrogen 16 mg/dL (7-17); Calcium 8.7 mg/dL (8.4-10.2); Carbon Dioxide 23 mmol/L (22-30); Chloride 98 mmol/L (98-107); Estimated CRCL calculation 41 ml/min; Estimated Glomerular Filt Rate > 60; Glucose 91 mg/dL (65-110); Potassium 4.1 mmol/L (3.4-5.0); Sodium 131 mmol/L (137-145)
--- NOTE | 2023-11-16 13:01 | PM.PNORT ---
Subjective Subjective Date/Time Seen: 11/16/23 13:01 Interval history: Patient is somewhat somnolent. She states she was unable to get up the chair due to the right knee not doing what it is supposed to. They did applied the knee immobilizer prior to attempted transfer. On exam she has moderate swelling about the right knee and ecchymosis compatible with her known trauma and hemarthrosis. She was unable to do a straight leg raise her hold the leg elevated against the weight of gravity. She continues did not deny any discomfort in her hip or discomfort with gentle rotation of the hip. Impression traumatic hemarthrosis right knee. Cannot rule out occult fracture. Will continue with touch weight-bearing using the immobilizer when out of bed for the time being. As she may prove to be immobile for several days or even weeks possibly, it may be better to be more aggressive with DVT prophylaxis and I will order once daily Lovenox in reduce her aspirin to her normal once daily aspirin. Her sedimentation rate was 72. Again, I feel it is unlikely she has infection around her knee replacement but we do have cultures that are incubated from the bloody aspirate of her right knee. Objective Data Vital Signs Vital Signs: Vital Signs - 24 hr 11/15/23 14:10 11/15/23 20:41 11/15/23 20:53 Temperature 36.5 C 35.9 C L Pulse Rate 68 76 78 Respiratory Rate 16 16 Blood Pressure 148/68 H 117/84 Pulse Oximetry 98 97 Oxygen Delivery 11/15/23 20:35 11/15/23 22:38 11/16/23 05:29 Temperature 35.9 C L 36.6 C Pulse Rate 78 73 62 Respiratory Rate 16 18 16 Blood Pressure 155/64 H 133/52 L Pulse Oximetry 97 94 99 Oxygen Delivery Room Air 11/16/23 09:32 11/16/23 09:35 11/16/23 09:35 Temperature Pulse Rate 78 78 Respiratory Rate Blood Pressure 185/69 H Pulse Oximetry 96 Oxygen Delivery Room Air 11/16/23 10:45 Temperature Pulse Rate Respiratory Rate Blood Pressure Pulse Oximetry Oxygen Delivery Room Air Intake/Output Intake/Output: Intake & Output 11/13/23 11/14/23 11/15/23 11/16/23 23:59 23:59 23:59 23:59 Intake Total 470 770 600 Output Total 100 1400 Balance 370 -630 600 Meds/Results Medications: Active Medications Generic Name Dose Route Start Last Admin Trade Name Sherice PRN Reason Stop Dose Admin Acetaminophen 650 mg 11/14/23 14:54 11/15/23 17:32 Acetaminophen 325 Mg Tablet PO 650 mg Q6H PRN Administration Mild Pain (1-3) or Fever Acetaminophen 1,000 mg 11/15/23 18:10 11/16/23 06:22 Acetaminophen 500 Mg Tablet PO Not Given Q6HR CED Aspirin 81 mg 11/16/23 09:00 11/16/23 09:33 Aspirin 81 Mg Chewable Tablet PO 81 mg BID CED Administration Carvedilol 3.125 mg 11/14/23 21:10 11/16/23 09:35 Carvedilol 3.125 Mg Tablet PO 3.125 mg Q12HR CED Administration Ciprofloxacin 1 drop 11/14/23 21:10 11/16/23 09:35 Ciprofloxacin Hcl 0.3% Op Soln 2.5 Ml Btl LEFT EYE 1 drop TID [facility] Administration Docusate Sodium 100 mg 11/15/23 09:00 11/16/23 09:35 Docusate Sodium 100 Mg Capsule PO 100 mg Q12HR CED Administration Furosemide 10 mg 11/14/23 21:05 11/16/23 09:33 Furosemide 10 Mg Tablet PO 10 mg BID CED Administration Hydralazine HCl 10 mg 11/15/23 08:57 Hydralazine Hcl 20 Mg/Ml Vial IV PUSH Q8H PRN Blood Pressure - High Lidocaine 1 patch 11/16/23 12:30 Lidocaine 5% Patch TRANSDERM DAILY [facility] Lisinopril 40 mg 11/15/23 09:00 11/16/23 09:33 Lisinopril 20 Mg Tablet PO 40 mg DAILY CED Administration Megestrol Acetate 40 mg 11/15/23 09:00 11/16/23 09:35 Megestrol Acetate (*Chemo) 40 Mg Tablet PO 40 mg TID [facility] Administration Multivitamins Therapeutic 1 tablet 11/15/23 09:00 11/16/23 09:34 Multivitamins Therapeutic Tab (*Bkc) PO 1 tablet DAILY CED Administration Prednisolone Acetate 1 drop 11/14/23 21:10 11/16/23 09:35 Prednisolone Acetate 1% Oph
[2023-11-16] MEDS: ACETAMINOPHEN 500 MG TABLET 1000 MG PO ×2 (13:12→18:14)
[2023-11-16] MEDS: LIDOCAINE 5% PATCH 1 PATCH TRANSDERM (13:13)
--- NOTE | 2023-11-16 17:20 | PM.DS ---
DS: Admitting Diagnosis Discharge Date 11/16/23 Admitting Diagnosis Ground level fall Right knee pain Effusion of the right knee Poorly-controlled hypertension Chronic hyponatremia DS: Summary Hospital Course Reason for hospitalization: Ground level fall Right knee pain Effusion of the right knee Poorly-controlled hypertension Chronic hyponatremia Hospital Course: This is an 88-year-old female who presented to the hospital from [facility] on 11/14/2023 with complaints of right knee pain after sustaining a fall. Workup in the hospital included a knee x-ray which shown a total right knee arthroplasty in near anatomic alignment, small right knee joint effusion. Chest x-ray was negative. Pelvis x-ray was also negative. CT scan of right knee shows total right knee arthroplasty in near anatomic alignment, moderate size knee joint effusion. Initial labs showed white blood cell count of 4.7, hemoglobin 11.0, sodium 130, chloride 96. Patient was given lisinopril, Coreg, and Tylenol while in the ED. ortho was consulted and aspirated 15 mL of bloody drainage from the right knee. This was sent off for culture however they do not feel it is infectious. This is likely a hematoma from trauma. She was placed in a knee immobilizer and was told to do toe-touch weight-bearing for now. Vital signs are stable, she is afebrile, she is on room air. Labs are stable. She is stable for transfer to [facility] today. She will need to follow up with her primary care physician in 1 week. Final diagnosis: Ground level fall, right knee effusion, right knee pain Status at Discharge Cognitive/behavioral status at discharge: Alert and oriented times x3 Functional status at discharge: uses cane/walker Overall status at discharge: patient is progressing back to baseline Time Spent with Patient Time attestation: Total time spent providing and/or coordinating discharge services: Time spent: Greater than 30 minutes Exam Narrative: General: In no acute distress, well nourished Cardiac: Normal S1 and S2. RRR, No murmur, gallops or friction rubs, peripheral pulses intact. Respiratory: Lungs clear to auscultation, no adventitious lung sounds, currently on room air Extremities: Right knee swollen, limited range of motion Skin: Bruising noted to right knee. No redness or warmth. Neuro: Alert and oriented x4 DS: Data Data Completed and Pending Completed studies during hospitalization: Knee x-ray Chest x-ray Pelvis x-ray Knee CT Hip/pelvis x-ray Pending studies at discharge: None Labs on day of discharge: Labs from last 24 hours 11/16/23 11/15/23 09:16 17:41 WBC 5.7 RBC 3.49 L Hgb 11.3 L Hct 34.5 L MCV 98.9 MCH 32.4 MCHC 32.8 RDW 15.0 H Plt Count 210 MPV 8.7 Immature Gran % (Auto) 0.4 Neut % (Auto) 66.0 Lymph % (Auto) 15.4 L [place] % (Auto) 16.6 H Eos % (Auto) 1.1 Baso % (Auto) 0.5 Lymph # (Auto) 0.88 L [place] # (Auto) 1.0 H Eos # (Auto) 0.1 Baso # (Auto) 0.0 Abs Immat Gran (auto) 0.02 Absolute Neuts (auto) 3.8 Absolute Nucleated RBC 0.000 Nucleated RBC % 0.0 ESR 72 H Sodium 131 L Potassium 4.1 Chloride 98 Carbon Dioxide 23 Anion Gap 10 BUN 16 Creatinine 0.70 Estim Creat Clear Calc 41 Estimated GFR > 60 Glucose 91 Calcium 8.7 Total Bilirubin 1.0 AST 18 ALT 9 Alkaline Phosphatase 60 Total Protein 6.0 L Albumin 3.7 Preliminary micro results at discharge 11/15/23 18:30 Anaerobic Culture - Preliminary Knee Right Procedures/Treatments: Right knee aspiration and culture Discharge Plan Discharge Attending physician on discharge: Pam Hayward Consulting providers: Reji Gallegos Discharging Clinician: Lily Aguirre Anticipated Discharge Date/Time: 11/16/23 17:16 Patient Disposition: [facility] Activity: as tolerated Diet: as tolerated Discharge Instructi
[2023-11-16 18:28] LABS: SARS-CoV-2 RNA PCR Negative (Negative)
== END 2023-11-16 21:21 | DRG 563 ==
LOC: ANHED 13:41 → ANH2MED 13:59
PROVIDERS: Orthopaedic Surgery; Physician Assistant; Admitting Provider Hospitalist; Emergency Provider Emergency Medicine; PCP Internal Medicine; Visit Provider Nurse Practitioner Acute Care
DX: S83.91XA Sprain of unspecified site of right knee, initial encounter (principal); E87.1 Hypo-osmolality and hyponatremia; M25.461 Effusion, right knee; W18.30XA Fall on same level, unspecified, initial encounter; D64.9 Anemia, unspecified; E78.5 Hyperlipidemia, unspecified; I10 Essential (primary) hypertension; M16.11 Unilateral primary osteoarthritis, right hip; N32.81 Overactive bladder; Z96.651 Presence of right artificial knee joint; Z95.0 Presence of cardiac pacemaker; Z96.0 Presence of urogenital implants; Z86.73 Personal history of transient ischemic attack (TIA), and cerebral infarction without residual deficits; Z66 Do not resuscitate; Z79.82 Long term (current) use of aspirin; Z11.52 Encounter for screening for COVID-19
CPT/HCPCS: 36415; 71045; 72170; 73502; 73562; 73700; 80048; 80053; 81003; 83735; 85025; 85027; 85652; 86140; 87070; 87075; 87205; 87635; 97161; 97166; 97535; 99285; A9270; G0378; J0690; L1830

== ENCOUNTER 2024-01-23 09:17 | Inpatient (IN) | payer MEDICARE, SELFPAY ==
[2024-01-23] VITALS (18 sets, daily range): BP systolic 138–209; BP diastolic 55–144; PULSE 65–85; RESP 14–16; TEMP 36.6; O2SAT 92–98; BMI 26.8; BMI 3930.4; BMI 27.5
--- NOTE | ~2024-01-23 | CT_ITS ---
EXAMINATION: CT abd pelvis lumbar wo con DATE: 01/23/2024 10:25 INDICATION: Low back pain. Flank pain. TECHNIQUE: Computed tomography (CT) of the abdomen and pelvis and lumbar spine was performed without intravenous contrast. Automated exposure control and iterative reconstruction technique were employed . The dose-length product was 627.37 mGy-cm. COMPARISON: None FINDINGS: CT ABDOMEN AND PELVIS: The visualized portions of the lung bases demonstrate mild atelectasis and mil d chronic lung disease. No pleural effusion. The heart size is normal. There are coronary artery calc ifications. No pericardial effusion. There is a left chest wall pacer with leads in the right atrium and right ventricle. There is a small sliding hiatal hernia. There is a 6 mm cyst in right kidney. Th e gallbladder, spleen, pancreas, adrenal glands, and left kidney are normal. There is cortical thinni ng of right kidney. There are cysts in right kidney measuring up to 10 mm. There is a 3.6 cm fusiform aneurysm of infrarenal aorta. There is an umbilical hernia containing fat. There is diverticulosis o f the colon without evidence of diverticulitis. The appendix is not visualized. There are no patholog ically enlarged lymph nodes. There is no free intraperitoneal fluid. CT LUMBAR SPINE: There is 3 degrees levocurvature of lumbar spine. There is 4 mm anterolisthesis of L 4 on L5. There is a chronic compression fracture of L5 with 1/5 loss of height. There are bridging en dplate osteophytes from at least T11-L1. There is moderately decreased disc height at L1-L2, severely decreased disc height at L3-L4, and moderately decreased disc height at L4-L5 and L5-S1. The followi ng disc levels are specifically discussed: L1-L2: The disc is bulging. There is moderate right and severe left facet joint osteoarthritis. There is mild bilateral neural foraminal stenosis. There is no central canal stenosis. L2-L3: The disc is bulging. There is moderate bilateral facet joint osteoarthritis. There is mild ye ateral neural foraminal stenosis. There is mild central canal stenosis. L3-L4: The disc is bulging. There is severe bilateral facet joint osteoarthritis. There is mild bilat eral neural foraminal stenosis. There is mild central canal stenosis. L4-L5: The disc is bulging. There is severe bilateral facet joint osteoarthritis. There is mild bilat eral neural foraminal stenosis. There is mild central canal stenosis. L5-S1: The disc is bulging. There is severe bilateral facet joint osteoarthritis. There is mild bilat eral neural foraminal stenosis. There is mild central canal stenosis. IMPRESSION: 1. No urolithiasis. 2. Umbilical hernia containing fat. 3. 3.6 cm fusiform aneurysm of infrarenal aorta. 4. Severe lumbar spondylosis. Reviewed, dictated and finalized at location A.
[2024-01-23] MEDS: traMADol HCL (*CRX) 25 MG TABLET PO (10:02)
[2024-01-23 10:24] LABS: Basophils Percent Auto 0.5 % (0.2-1.2); Eosinophils Percent Auto 0.3 % (0-4.4); Hematocrit 34.2 % (37.0-47.0); Hemoglobin 11.2 g/dL (12.0-15.0); Immature Granulocyte Absolute 0.01 K/mm3 (0.00-0.031); Immature Granulocyte Percent A 0.2 % (0-0.5); Lymphocytes Absolute Auto 0.71 K/mm3 (0.9-3.2); Lymphocytes Percent Auto 11.4 % (18.3-44.2); Mean Corpuscular HGB Conc 32.7 g/dl (32-36); Mean Corpuscular Hemoglobin 32.5 pg (26-34); Mean Corpuscular Volume 99.1 fl (80-100); Mean Platelet Volume 8.2 fl (7.4-10.4); Monocytes Absolute Auto 1.1 K/mm3 (0.1-0.6); Monocytes Percent Auto 17.5 % (2.6-8.5); Neutrophils Absolute Auto 4.4 K/mm3 (1.3-6.7); Neutrophils Percent Auto 70.1 % (45.5-73.1); Platelet Count Result 185 k/mm3 (150-375); Red Blood Count 3.45 M/mm3 (4.2-5.4); White Blood Count 6.2 K/mm3 (4.5-10.0)
--- NOTE | 2024-01-23 10:35 | ED.BACK ---
HPI - Back Pain/Injury General Chief Complaint: Back Pain/Injury <DEBRA Clark Last Filed: 01/23/24 14:38> Stated Complaint: lower back pain <DEBRA Clark Last Filed: 01/23/24 14:38> Time Seen by Provider: 01/23/24 09:18 <DEBRA Clark Last Filed: 01/23/24 14:38> Source: patient and family <DEBRA Clark Last Filed: 01/23/24 14:38> Mode of arrival: EMS <DEBRA Clark Last Filed: 01/23/24 14:38> Limitations: no limitations <DEBRA Clark Last Filed: 01/23/24 14:38> History of Present Illness HPI Narrative: Patient is an 88-year-old female, with past medical history of hypertension, CVA, pacemaker, who presents the ED via EMS with report of back pain. Patient is a resident of [facility]. She reports having pain throughout her lower back, worse on the left side over the past few days. Pain became worse night. She takes Tylenol with her normal medications, but denies improvement of pain. States she can hardly sit up or walk on her own due to the pain. Denies any fall or injury. Denies radiation down legs. Denies numbness, saddle anesthesia, new bowel or bladder incontinence, abdominal pain. <DEBRA Clark Last Filed: 01/23/24 14:38> Related Data Home Medications: Home Medications Medication Instructions Recorded Confirmed aspirin 81 mg tablet,delayed 81 mg PO DAILY 10/13/21 01/23/24 release solifenacin 5 mg tablet (Vesicare) 5 mg PO DAILY 10/13/21 01/23/24 multivitamin (Daily-Holly tablet) 1 tablet PO DAILY 05/03/23 01/23/24 multivitamin with folic acid 400 1 tablet PO DAILY 11/14/23 01/23/24 mcg tablet (Tab-A-Holly) sodium chloride 1,000 mg soluble 1,000 mg PO DAILY 11/14/23 01/23/24 tablet hydralazine 25 mg tablet 25 mg PO TID 12/11/23 01/23/24 lidocaine 5 % topical patch 1 patch topical DAILY 01/23/24 01/23/24 <Bronwyn Glynn PA-C - Last Filed: 01/23/24 14:38> Allergies/Adverse Reactions: Allergies Allergy/AdvReac Type Severity Reaction Status Date / Time atorvastatin Allergy Unknown Other Verified 01/10/24 12:59 clonidine Allergy Unknown Unknown Verified 01/10/24 12:59 evolocumab Allergy Unknown Unknown Verified 01/10/24 12:59 [From Taylor Dupree] metoprolol Allergy Unknown Unknown Verified 01/10/24 12:59 nifedipine Allergy Unknown Unknown Verified 01/10/24 12:59 tramadol Allergy Unknown Unknown Verified 01/10/24 12:59 amlodipine AdvReac Anaphylaxis Verified 01/10/24 12:59 losartan AdvReac Anaphylaxis Verified 01/10/24 12:59 <Bronwyn Glynn PA-C - Last Filed: 01/23/24 14:38> Review of Systems Review of Systems: All systems reviewed & are unremarkable except as noted in HPI. 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 Chronic anemia Chronic hyponatremia Hard of hearing Hyperlipidemia Hypertension Ischemic stroke Overactive bladder <Bronwyn Glynn PA-C - Last Filed: 01/23/24 14:38> Surgical History Surgical History: Surgical History History of arthroplasty of right knee History of permanent cardiac pacemaker placement History of renal stent <Bronwyn Glynn PA-C - Last Filed: 01/23/24 14:38> Family History Family History: Family History Mother CAD (coronary artery disease) Father Acute myocardial infarction Sibling No problems noted. <Bronwyn Glynn PA-C - Last Filed:
[2024-01-23 10:38] LABS: Anion Gap 12 mmol/L (4-12); Blood Urea Nitrogen 14 mg/dL (7-17); Calcium 9.1 mg/dL (8.4-10.2); Carbon Dioxide 25 mmol/L (22-30); Chloride 96 mmol/L (98-107); Estimated CRCL calculation 47 ml/min; Estimated Glomerular Filt Rate > 60; Glucose 93 mg/dL (65-110); Potassium 3.9 mmol/L (3.4-5.0); Sodium 133 mmol/L (137-145)
[2024-01-23 11:41] LABS: Add Urine Microscopic? YES; Appearance Urine Cloudy (Clear); Bacteria Urine 4+ /hpf; Bilirubin Urine Negative (Negative); Blood Urine Trace (Negative); Color Urine Yellow (Yellow); Glucose Urine UA Negative (Negative); Ketones Urine 3+ mg/dL (Negative); Leukocyte Esterase Ur 2+ LEU/UL (Negative); Need Manual Microscopic Reviewed; Nitrate Urine Negative (Negative); Non Pathogenic Casts 0-2; Protein Urine 1+ mg/dL (Negative); Specific Grav Ur 1.017 (1.001-1.035); Squamous Epithelial Cell Urine None Seen /hpf (Few); WBC Urine >100 /hpf (0-3)
[2024-01-23] MEDS: hydrALAZINE HCL 20 MG/ML VIAL 10 MG IV PUSH (11:55)
[2024-01-23] MEDS: LIDOCAINE 5% PATCH 1 PATCH TRANSDERM (11:57)
--- NOTE | 2024-01-23 12:40 | PC.NURSE ---
Pt able to turn in bed independently. Pt refusing to ambulate with walker and assistance d/t pain. PA notified.
[2024-01-23] MEDS: diazePAM INJ (*CRX) 10 MG/2 ML SYRINGE IV PUSH (12:52)
[2024-01-23] MEDS: methylPREDNISolone SOD SUCC 125 MG VIAL IV PUSH (12:52)
--- NOTE | 2024-01-23 14:25 | PC.NURSE ---
This RN attempted to help pt ambulate for the second time with assistance and a walker. Attempt unsuccessful. Pt states she is unable to ambulate d/t 10/10 bilateral low back that radiates down bilateral posterior legs when standing.
--- NOTE | 2024-01-23 15:40 | PM.IMHP ---
H&P: HPI History of Present Illness Date/Time: 01/23/24 15:40 Chief Complaint: Back pain. Narrative: This is an 88-year-old female with history of cerebrovascular accident, hypertension, hyperlipidemia, overactive bladder, chronic anemia, chronic hyponatremia, and osteoarthritis who presented to the emergency department via EMS from [facility] for evaluation of back pain. The patient provides the following history. She reports a gradual onset of diffuse lower back pain over the last 3 days. The pain seems to be a bit worse on the left when compared to the right. It is described as a severe muscle spasm. The pain does not radiate. She has been taking acetaminophen without benefit. It is to the point where she can hardly even sit herself up let alone walk due to the pain. She has chronic urinary incontinence which is unchanged. She denies lower extremity paresthesias, numbness, saddle anesthesia, bowel incontinence, and urinary retention. She has not had any falls or trauma. She also denies fever, chills, sweats, nausea, vomiting, significant dysuria, and hematuria. In the ED: Blood pressures have been in the 170s to 190 systolic. She is afebrile. The remainder of her vital signs are stable. BMP and CBC are without significant changes from her baseline. Urinalysis is positive for 1+ protein, 3+ ketones, 2+ leukocyte esterase, 3 to 5 RBC, greater than 100 WBC, and 4+ bacteria. 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 She received ceftriaxone 1 g for suspected urinary tract infection. She was also given methylprednisolone 125 mg, tramadol 25 mg, and diazepam 1 mg for the back pain. The patient was unable/unwilling to stand to attempt ambulation. She is being admitted in this setting for pain control and PT/OT consultation. Review of Systems Review of Systems: 12 systems were reviewed and are negative except for as per HPI. [facility] Past Medical History Medical History (Updated 01/23/24 @ 21:29 by Constance Salgado PA-C) 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 Chronic anemia Chronic hyponatremia Hard of hearing Hyperlipidemia Hypertension Ischemic stroke Overactive bladder Surgical History Surgical History History of arthroplasty of right knee History of permanent cardiac pacemaker placement History of renal stent Family History Family History Mother CAD (coronary artery disease) Father Acute myocardial infarction Sibling No problems noted. Social History Social History Social History: Surrogate medical decision maker: Aura Perez, daughter. Code status: Do not resuscitate. Smoking status: Never smoker Second hand tobacco smoke exposure: No Alcohol intake: never Substance use: never Substance use type: does not use Do You Feel Safe in your Home?: Yes Lack of Transportation: No Lack of Food: Never True Current Housing: I Have Housing Concerned About Future Housing: No Difficulty Paying Gas/Electric Bills: No Difficulty Paying for Meds: No Currently Unemployed: No Education: High School Diploma/GED Difficulty w/ Childcare or Family Care: No Living arrangements: assisted living Additional living arrangements comments: . Lives in assisted living at [facility]. Currently at [facility] for rehab. Occupation/Education: retired Additional occupation/education comments: Retired from working at a bank. Spiritual care concerns: No Meds Home Medications and Allergies Home Medications Medication Instructions Recorded Confirmed Type aspirin 81 mg tablet,de
--- NOTE | 2024-01-23 17:45 | ADMGEN ---
This patient, Chirsti Perez, was admitted to Medical Room 349-01. Patient/family oriented to hospital policies and general routines including ID bracelet, bed and alarms, visiting hours, pain management, procedures, bathroom and other care routines, personal items, smoking policy, room service/diet, and visiting hours. Information on how to activate the Rapid Response Team has been discussed. Patient/Family are encouraged to report perceived risks to care and to ask questions if they do not understand what they are told or what they should do.
[2024-01-23] MEDS: hydrALAZINE HCL 25 MG TABLET PO (18:57)
[2024-01-23] MEDS: FUROSEMIDE 10 MG TABLET PO (21:28)
[2024-01-24 06:00] VITALS: BP 186/71; PULSE 71; RESP 16; TEMP 36.6; O2SAT 94
[2024-01-24 08:00] VITALS: PULSE 73; RESP 16; O2SAT 94
[2024-01-24] MEDS: ASPIRIN 81 MG ENTERIC TABLET PO (08:32)
[2024-01-24] MEDS: LIDOCAINE 5% PATCH 1 PATCH TOPICAL (08:33)
[2024-01-24] MEDS: hydrALAZINE HCL 25 MG TABLET PO ×3 (08:33→17:13)
[2024-01-24] MEDS: MULTIVITAMINS THERAPEUTIC TAB (*BKC) 1 TABLET PO (08:33)
[2024-01-24] MEDS: SODIUM CHLORIDE 1 GM TABLET PO (08:33)
[2024-01-24] MEDS: lisinopriL 20 MG TABLET 40 MG PO (08:33)
[2024-01-24] MEDS: SOLIFENACIN 5 MG TABLET PO (08:33)
[2024-01-24] MEDS: FUROSEMIDE 10 MG TABLET PO ×2 (08:33→17:13)
[2024-01-24] MEDS: DOCUSATE SODIUM 100 MG CAPSULE PO ×2 (08:33→19:40)
[2024-01-24 08:34] VITALS: PULSE 73
[2024-01-24] MEDS: carvediloL 12.5 MG TABLET PO (08:34)
[2024-01-24 09:13] LABS: Hematocrit 34.5 % (37.0-47.0); Hemoglobin 11.6 g/dL (12.0-15.0); Immature Granulocyte Absolute 0.02 K/mm3 (0.00-0.031); Immature Granulocyte Percent A 0.4 % (0-0.5); Lymphocytes Absolute Auto 0.53 K/mm3 (0.9-3.2); Lymphocytes Percent Auto 10.5 % (18.3-44.2); Mean Corpuscular HGB Conc 33.6 g/dl (32-36); Mean Corpuscular Hemoglobin 33.1 pg (26-34); Mean Corpuscular Volume 98.6 fl (80-100); Mean Platelet Volume 8.2 fl (7.4-10.4); Monocytes Absolute Auto 0.9 K/mm3 (0.1-0.6); Monocytes Percent Auto 18.5 % (2.6-8.5); Neutrophils Absolute Auto 3.6 K/mm3 (1.3-6.7); Neutrophils Percent Auto 70.6 % (45.5-73.1); Platelet Count Result 181 k/mm3 (150-375); Red Cell Distribution Width 14.8 % (11.5-14.5)
[2024-01-24 09:24] LABS: Alanine Aminotransferase 15 U/L (6-35); Albumin Level 3.7 g/dL (3.5-5.1); Alkaline Phosphatase 66 U/L (38-126); Anion Gap 6 mmol/L (4-12); Aspartate Amino Transferase 22 U/L (14-36); Bilirubin,Total 0.6 mg/dL (0.2-1.3); Blood Urea Nitrogen 26 mg/dL (7-17); Calcium 9.1 mg/dL (8.4-10.2); Carbon Dioxide 29 mmol/L (22-30); Chloride 99 mmol/L (98-107); Estimated CRCL calculation 40 ml/min; Estimated Glomerular Filt Rate > 60; Glucose 124 mg/dL (65-110); Potassium 4.1 mmol/L (3.4-5.0); Sodium 134 mmol/L (137-145)
--- NOTE | 2024-01-24 12:18 | PM.IMPN ---
Progress Note: A&P Assessment and Plan (1) Intractable low back pain: Code(s): M54.59 - Other low back pain Status: Acute Assessment and Plan: Acetaminophen 650 mg PO q 6 PRN (2) Urinary tract infection: Code(s): N39.0 - Urinary tract infection, site not specified Status: Acute Assessment and Plan: Ceftriaxone for possible UTI Urine culture pending. (3) Poorly-controlled hypertension: Code(s): I10 - Essential (primary) hypertension Status: Chronic Assessment and Plan: blood pressure 140/70 Continue Carvedilol 12.5 mg PO daily, Hydralazine 25 mg PO TID, and Lisinopril 40 mg PO daily. (4) Chronic hyponatremia: Code(s): E87.1 - Hypo-osmolality and hyponatremia Status: Chronic Assessment and Plan: Sodium 134. Monitor labs. (5) Chronic anemia: Code(s): D64.9 - Anemia, unspecified Status: Acute Assessment and Plan: Hemoglobin 11.6, hematocrit 34.5 Monitor labs (6) Bilateral thigh pain: Code(s): M79.651 - Pain in right thigh; M79.652 - Pain in left thigh Status: Acute Assessment and Plan: Acetaminophen 650 mg PO q 6 PRN Subjective Date/time seen: 01/24/24 12:18 Interval history: Patient reports pain in bilateral thighs that is a 6 , constant, and aching. Patient denies chest pain, palpitations, headache, dizziness, nausea, or vomiting. Review of Systems Review of Systems: All systems reviewed & are unremarkable except as noted in HPI and below Exam Const: General: no acute distress HENMT: Mouth: Yes moist mucous membranes Other: Hard of hearing. Resp: Effort & Inspection: normal respiratory effort Auscultation: clear to auscultation bilaterally Cardio: Rate: regular rate Rhythm: regular rhythm GI: GI Palp: Yes Soft to palpation Auscultation: normal bowel sounds Skin: General skin exam: no rashes or lesions noted Extrem: General: normal to inspection Psych: Affect: normal affect Objective Data Vital Signs Vital Signs: Vital Signs - 24 hr 01/23/24 12:52 01/23/24 13:26 01/23/24 12:31 Temperature Pulse Rate 74 69 70 Respiratory Rate 14 14 14 Blood Pressure 208/72 H 178/57 H 208/72 H Pulse Oximetry 94 95 93 Oxygen Delivery 01/23/24 13:01 01/23/24 16:53 01/23/24 14:46 Temperature Pulse Rate 65 70 Respiratory Rate 16 14 Blood Pressure 178/57 H 198/77 H Pulse Oximetry 92 94 95 Oxygen Delivery 01/23/24 15:04 01/23/24 15:17 01/23/24 18:22 Temperature Pulse Rate Respiratory Rate Blood Pressure Pulse Oximetry 93 95 98 Oxygen Delivery Room Air 01/23/24 21:25 01/24/24 06:00 01/24/24 08:34 Temperature 97.9 F 97.9 F Pulse Rate 78 71 73 Respiratory Rate 16 16 Blood Pressure 138/70 186/71 H Pulse Oximetry 94 94 Oxygen Delivery 01/24/24 08:00 Temperature Pulse Rate 73 Respiratory Rate 16 Blood Pressure Pulse Oximetry 94 Oxygen Delivery Room Air Intake/Output Intake/Output: Intake & Output 01/21/24 01/22/24 01/23/24 01/24/24 23:59 23:59 23:59 23:59 Intake Total 50 600 Balance 50 600 Meds/Results Medications: Active Medications Generic Name Dose Route Start Last Admin Trade Name Freq PRN Reason Stop Dose Admin Acetaminophen 650 mg 01/23/24 16:03 Acetaminophen 325 Mg Tablet PO Q6H PRN Mild Pain (1-3) or Fever Aspirin 81 mg 01/24/24 09:00 01/24/24 08:32 Aspirin 81 Mg Enteric Tablet PO 81 mg DAILY CED Administration Carvedilol 12.5 mg 01/24/24 09:00 01/24/24 08:34 Carvedilol 12.5 Mg Tablet PO 12.5 mg QAM CED Administration Docusate Sodium 100 mg 01/23/24 21:00 01/24/24 08:33 Docusate Sodium 100 Mg Capsule PO 100 mg Q12HR CED Administration Furosemide 10 mg 01/23/24 20:05 01/24/24 08:33 Furosemide 10 Mg Tablet PO 10 mg BID CED Administration Hydralazine HCl 25 mg 01/23/24 20:05 01/24/24 08:33 Hydralazin
[2024-01-24] MEDS: ACETAMINOPHEN 325 MG TABLET 650 MG PO ×2 (13:18→19:40)
[2024-01-24 14:00] VITALS: BP 140/70; PULSE 69; RESP 18; TEMP 36.5; O2SAT 96
[2024-01-24 21:19] VITALS: BP 142/55; PULSE 63; RESP 16; TEMP 36.3; O2SAT 94
[2024-01-25 05:53] LABS: Basophils Percent Auto 0.4 % (0.2-1.2); Eosinophils Percent Auto 0.6 % (0-4.4); Hematocrit 33.4 % (37.0-47.0); Hemoglobin 10.7 g/dL (12.0-15.0); Immature Granulocyte Absolute 0.02 K/mm3 (0.00-0.031); Immature Granulocyte Percent A 0.4 % (0-0.5); Lymphocytes Percent Auto 20.8 % (18.3-44.2); Mean Corpuscular Hemoglobin 31.7 pg (26-34); Mean Corpuscular Volume 98.8 fl (80-100); Mean Platelet Volume 8.4 fl (7.4-10.4); Monocytes Percent Auto 18.7 % (2.6-8.5); Neutrophils Absolute Auto 3.1 K/mm3 (1.3-6.7); Neutrophils Percent Auto 59.1 % (45.5-73.1); Platelet Count Result 194 k/mm3 (150-375); Red Blood Count 3.38 M/mm3 (4.2-5.4); Red Cell Distribution Width 14.9 % (11.5-14.5); White Blood Count 5.3 K/mm3 (4.5-10.0)
[2024-01-25 06:00] VITALS: BP 145/63; PULSE 66; RESP 16; TEMP 36.7; O2SAT 95
[2024-01-25 06:20] LABS: Alanine Aminotransferase 13 U/L (6-35); Albumin Level 3.3 g/dL (3.5-5.1); Alkaline Phosphatase 62 U/L (38-126); Anion Gap 2 mmol/L (4-12); Aspartate Amino Transferase 23 U/L (14-36); Bilirubin,Total 0.6 mg/dL (0.2-1.3); Blood Urea Nitrogen 35 mg/dL (7-17); Calcium 8.8 mg/dL (8.4-10.2); Carbon Dioxide 30 mmol/L (22-30); Chloride 99 mmol/L (98-107); Estimated CRCL calculation 35 ml/min; Estimated Glomerular Filt Rate > 60; Glucose 95 mg/dL (65-110); Potassium 4.3 mmol/L (3.4-5.0); Sodium 131 mmol/L (137-145)
[2024-01-25] MEDS: SOLIFENACIN 5 MG TABLET PO (08:47)
[2024-01-25] MEDS: SODIUM CHLORIDE 1 GM TABLET PO (08:47)
[2024-01-25] MEDS: ACETAMINOPHEN 325 MG TABLET 650 MG PO (08:47)
[2024-01-25] MEDS: FUROSEMIDE 10 MG TABLET PO ×2 (08:47→17:34)
[2024-01-25] MEDS: lisinopriL 20 MG TABLET 40 MG PO (08:47)
[2024-01-25] MEDS: hydrALAZINE HCL 25 MG TABLET PO ×3 (08:47→17:34)
[2024-01-25] MEDS: DOCUSATE SODIUM 100 MG CAPSULE PO ×2 (08:47→22:04)
[2024-01-25] MEDS: ASPIRIN 81 MG ENTERIC TABLET PO (08:47)
[2024-01-25] MEDS: MULTIVITAMINS THERAPEUTIC TAB (*BKC) 1 TABLET PO (08:47)
[2024-01-25] MEDS: LIDOCAINE 5% PATCH 1 PATCH TOPICAL (08:48)
[2024-01-25 08:49] VITALS: PULSE 65
[2024-01-25] MEDS: carvediloL 12.5 MG TABLET PO (08:49)
--- NOTE | 2024-01-25 13:02 | PM.IMPN ---
Progress Note: A&P Assessment and Plan (1) Intractable low back pain: Code(s): M54.59 - Other low back pain Status: Acute Assessment and Plan: Acetaminophen 650 mg PO q 6 PRN Lidocaine 5% patch daily. PT/OT (2) Urinary tract infection: Code(s): N39.0 - Urinary tract infection, site not specified Status: Acute Assessment and Plan: Ceftriaxone for possible UTI Urine culture pending. (3) Poorly-controlled hypertension: Code(s): I10 - Essential (primary) hypertension Status: Chronic Assessment and Plan: blood pressure 120/51. Continue Carvedilol 12.5 mg PO daily, Hydralazine 25 mg PO TID, and Lisinopril 40 mg PO daily. (4) Chronic hyponatremia: Code(s): E87.1 - Hypo-osmolality and hyponatremia Status: Chronic Assessment and Plan: Sodium 131. Monitor labs. (5) Chronic anemia: Code(s): D64.9 - Anemia, unspecified Status: Acute Assessment and Plan: Hemoglobin 10.7, hematocrit 33.4 Monitor labs (6) Bilateral thigh pain: Code(s): M79.651 - Pain in right thigh; M79.652 - Pain in left thigh Status: Acute Assessment and Plan: Acetaminophen 650 mg PO q 6 PRN Subjective Date/time seen: 01/25/24 13:02 Interval history: Patient reports pain in bilateral thighs that is a 7 , constant, and aching. Patient denies chest pain, palpitations, headache, dizziness, nausea, or vomiting. Sitting up in chair eating lunch. Review of Systems Review of Systems: All systems reviewed & are unremarkable except as noted in HPI and below Exam Const: General: no acute distress and uncomfortable Resp: Effort & Inspection: normal respiratory effort Auscultation: clear to auscultation bilaterally Cardio: Rate: regular rate Rhythm: regular rhythm Skin: General skin exam: no rashes or lesions noted Neuro: Speech: normal speech Extrem: General: normal to inspection Objective Data Vital Signs Vital Signs: Vital Signs - 24 hr 01/24/24 14:00 01/24/24 15:20 01/24/24 21:19 Temperature 97.7 F 97.3 F L Pulse Rate 69 63 Respiratory Rate 18 16 Blood Pressure 140/70 142/55 H Pulse Oximetry 96 94 Oxygen Delivery Room Air 01/25/24 06:00 01/25/24 08:49 01/25/24 08:00 Temperature 98.1 F Pulse Rate 66 65 Respiratory Rate 16 Blood Pressure 145/63 H Pulse Oximetry 95 Oxygen Delivery Room Air Intake/Output Intake/Output: Intake & Output 01/22/24 01/23/24 01/24/24 01/25/24 23:59 23:59 23:59 23:59 Intake Total 50 1010 480 Output Total 600 Balance 50 1010 -120 Meds/Results Medications: Active Medications Generic Name Dose Route Start Last Admin Trade Name Freq PRN Reason Stop Dose Admin Acetaminophen 650 mg 01/23/24 16:03 01/25/24 08:47 Acetaminophen 325 Mg Tablet PO 650 mg Q6H PRN Administration Mild Pain (1-3) or Fever Aspirin 81 mg 01/24/24 09:00 01/25/24 08:47 Aspirin 81 Mg Enteric Tablet PO 81 mg DAILY CED Administration Carvedilol 12.5 mg 01/24/24 09:00 01/25/24 08:49 Carvedilol 12.5 Mg Tablet PO 12.5 mg QAM CED Administration Docusate Sodium 100 mg 01/23/24 21:00 01/25/24 08:47 Docusate Sodium 100 Mg Capsule PO 100 mg Q12HR CED Administration Furosemide 10 mg 01/23/24 20:05 01/25/24 08:47 Furosemide 10 Mg Tablet PO 10 mg BID CED Administration Hydralazine HCl 25 mg 01/23/24 20:05 01/25/24 12:24 Hydralazine Hcl 25 Mg Tablet PO 25 mg TID CED Administration Ceftriaxone Sodium 1 gm in 50 mls @ 100 mls/hr 01/26/24 09:00 Rocephin 1 Gm/Ns 50 Ml IVPB Q24H CED Lidocaine 1 patch 01/24/24 09:00 01/25/24 08:48 Lidocaine 5% Patch TOPICAL 1 patch DAILY CED Administration Lisinopril 40 mg 01/24/24 09:00 01/25/24 08:47 Lisinopril 20 Mg Tablet PO 40 mg DAILY CED Administration Multivitamins Therapeutic 1 tablet 01/24/24 09:00 01/25/24 08:47 Multivita
[2024-01-25 14:00] VITALS: BP 120/51; PULSE 60; RESP 18; TEMP 36.8; O2SAT 96
[2024-01-25 20:31] VITALS: BP 124/47; PULSE 72; RESP 18; TEMP 36.4; O2SAT 96
[2024-01-25 21:30] VITALS: BP 124/47; PULSE 72; RESP 18; TEMP 36.4; O2SAT 96
[2024-01-26 05:18] LABS: Basophils Percent Auto 0.6 % (0.2-1.2); Eosinophils Absolute Auto 0.1 K/mm3 (0-0.3); Eosinophils Percent Auto 1.6 % (0-4.4); Hematocrit 32.7 % (37.0-47.0); Hemoglobin 10.9 g/dL (12.0-15.0); Immature Granulocyte Absolute 0.02 K/mm3 (0.00-0.031); Immature Granulocyte Percent A 0.4 % (0-0.5); Lymphocytes Absolute Auto 1.08 K/mm3 (0.9-3.2); Lymphocytes Percent Auto 22.2 % (18.3-44.2); Mean Corpuscular HGB Conc 33.3 g/dl (32-36); Mean Corpuscular Hemoglobin 33.2 pg (26-34); Mean Corpuscular Volume 99.7 fl (80-100); Monocytes Percent Auto 21.4 % (2.6-8.5); Neutrophils Absolute Auto 2.6 K/mm3 (1.3-6.7); Neutrophils Percent Auto 53.8 % (45.5-73.1); Platelet Count Result 180 k/mm3 (150-375); Red Blood Count 3.28 M/mm3 (4.2-5.4); Red Cell Distribution Width 14.6 % (11.5-14.5); White Blood Count 4.9 K/mm3 (4.5-10.0)
[2024-01-26 05:31] LABS: Alanine Aminotransferase 12 U/L (6-35); Albumin Level 3.2 g/dL (3.5-5.1); Alkaline Phosphatase 62 U/L (38-126); Anion Gap 5 mmol/L (4-12); Aspartate Amino Transferase 20 U/L (14-36); Bilirubin,Total 0.5 mg/dL (0.2-1.3); Blood Urea Nitrogen 31 mg/dL (7-17); Calcium 8.6 mg/dL (8.4-10.2); Carbon Dioxide 28 mmol/L (22-30); Chloride 99 mmol/L (98-107); Estimated CRCL calculation 40 ml/min; Estimated Glomerular Filt Rate > 60; Glucose 96 mg/dL (65-110); Potassium 4.3 mmol/L (3.4-5.0); Sodium 132 mmol/L (137-145)
[2024-01-26 05:39] VITALS: BP 140/46; PULSE 66; RESP 16; TEMP 36.3; O2SAT 93
[2024-01-26] MEDS: ASPIRIN 81 MG ENTERIC TABLET PO (08:42)
[2024-01-26] MEDS: FUROSEMIDE 10 MG TABLET PO (08:42)
[2024-01-26] MEDS: SOLIFENACIN 5 MG TABLET PO (08:42)
[2024-01-26] MEDS: SODIUM CHLORIDE 1 GM TABLET PO (08:42)
[2024-01-26] MEDS: hydrALAZINE HCL 25 MG TABLET PO ×2 (08:42→13:33)
[2024-01-26] MEDS: DOCUSATE SODIUM 100 MG CAPSULE PO (08:42)
[2024-01-26] MEDS: lisinopriL 20 MG TABLET 40 MG PO (08:42)
[2024-01-26] MEDS: MULTIVITAMINS THERAPEUTIC TAB (*BKC) 1 TABLET PO (08:42)
[2024-01-26 08:44] VITALS: PULSE 63
[2024-01-26] MEDS: carvediloL 12.5 MG TABLET PO (08:44)
[2024-01-26] MEDS: LIDOCAINE 5% PATCH 1 PATCH TOPICAL (08:45)
[2024-01-26] MEDS: ACETAMINOPHEN 325 MG TABLET 650 MG PO (08:54)
--- NOTE | 2024-01-26 09:16 | PCOTNOTE ---
The patient treatment was not able to be completed. Patient with PT. Will plan to continue treatment per plan of care.
--- NOTE | 2024-01-26 10:09 | PM.IMPN ---
Progress Note: A&P Assessment and Plan (1) Intractable low back pain: Code(s): M54.59 - Other low back pain Status: Acute Assessment and Plan: Acetaminophen 650 mg PO q 6 PRN Lidocaine 5% patch daily. PT/OT (2) Urinary tract infection: Code(s): N39.0 - Urinary tract infection, site not specified Status: Acute Assessment and Plan: Ceftriaxone for possible UTI Urine culture pending. (3) Poorly-controlled hypertension: Code(s): I10 - Essential (primary) hypertension Status: Chronic Assessment and Plan: blood pressure 120/51. Continue Carvedilol 12.5 mg PO daily, Hydralazine 25 mg PO TID, and Lisinopril 40 mg PO daily. (4) Chronic hyponatremia: Code(s): E87.1 - Hypo-osmolality and hyponatremia Status: Chronic Assessment and Plan: Sodium 131. Monitor labs. (5) Chronic anemia: Code(s): D64.9 - Anemia, unspecified Status: Acute Assessment and Plan: Hemoglobin 10.7, hematocrit 33.4 Monitor labs (6) Bilateral thigh pain: Code(s): M79.651 - Pain in right thigh; M79.652 - Pain in left thigh Status: Acute Assessment and Plan: Acetaminophen 650 mg PO q 6 PRN Subjective Date/time seen: 01/26/24 10:09 Objective Data Vital Signs Vital Signs: Vital Signs - 24 hr 01/25/24 14:00 01/25/24 20:31 01/25/24 21:30 Temperature 98.3 F 97.6 F 97.6 F Pulse Rate 60 72 72 Respiratory Rate 18 18 18 Blood Pressure 120/51 L 124/47 L 124/47 L Pulse Oximetry 96 96 96 Oxygen Delivery 01/25/24 20:00 01/26/24 05:39 01/26/24 08:44 Temperature 97.4 F L Pulse Rate 66 63 Respiratory Rate 16 Blood Pressure 140/46 L Pulse Oximetry 93 Oxygen Delivery Room Air 01/26/24 08:00 Temperature Pulse Rate Respiratory Rate Blood Pressure Pulse Oximetry Oxygen Delivery Room Air Intake/Output Intake/Output: Intake & Output 01/23/24 01/24/24 01/25/24 01/26/24 23:59 23:59 23:59 23:59 Intake Total 50 1010 1320 240 Output Total 900 600 Balance 50 1010 420 -360 Meds/Results Medications: Active Medications Generic Name Dose Route Start Last Admin Trade Name Sherice PRN Reason Stop Dose Admin Acetaminophen 650 mg 01/23/24 16:03 01/26/24 08:54 Acetaminophen 325 Mg Tablet PO 650 mg Q6H PRN Administration Mild Pain (1-3) or Fever Aspirin 81 mg 01/24/24 09:00 01/26/24 08:42 Aspirin 81 Mg Enteric Tablet PO 81 mg DAILY CED Administration Carvedilol 12.5 mg 01/24/24 09:00 01/26/24 08:44 Carvedilol 12.5 Mg Tablet PO 12.5 mg QAM CDE Administration Docusate Sodium 100 mg 01/23/24 21:00 01/26/24 08:42 Docusate Sodium 100 Mg Capsule PO 100 mg Q12HR CED Administration Furosemide 10 mg 01/23/24 20:05 01/26/24 08:42 Furosemide 10 Mg Tablet PO 10 mg BID CED Administration Hydralazine HCl 25 mg 01/23/24 20:05 01/26/24 08:42 Hydralazine Hcl 25 Mg Tablet PO 25 mg TID CED Administration Ceftriaxone Sodium 1 gm in 50 mls @ 100 mls/hr 01/26/24 09:00 01/26/24 08:42 Rocephin 1 Gm/Ns 50 Ml IVPB 100 mls/hr Q24H CED Administration Lidocaine 1 patch 01/24/24 09:00 01/26/24 08:45 Lidocaine 5% Patch TOPICAL 1 patch DAILY CED Administration Lisinopril 40 mg 01/24/24 09:00 01/26/24 08:42 Lisinopril 20 Mg Tablet PO 40 mg DAILY CED Administration Multivitamins Therapeutic 1 tablet 01/24/24 09:00 01/26/24 08:42 Multivitamins Therapeutic Tab (*Bkc) PO 1 tablet DAILY CED Administration Sodium Chloride 1 gm 01/24/24 09:00 01/26/24 08:42 Sodium Chloride 1 Gm Tablet PO 1 gm DAILY CED Administration Solifenacin 5 mg 01/24/24 09:00 01/26/24 08:42 Solifenacin 5 Mg Tablet PO 5 mg DAILY CED Administration Radiology Results: ITS Impressions Miscellaneous CT Procedure 01/23/24 10:39 IMPRESSION: 1. No urolithiasis. 2. Umbilical hernia containing fat. 3. 3.6 cm fus
--- NOTE | 2024-01-26 12:04 | PM.DS ---
DS: Admitting Diagnosis Discharge Date 01/26/24 Admitting Diagnosis Back pain DS: Discharge Diagnosis Discharge Diagnosis (1) Intractable low back pain: Code(s): M54.59 - Other low back pain Status: Acute (2) Urinary tract infection: Code(s): N39.0 - Urinary tract infection, site not specified Status: Acute (3) Poorly-controlled hypertension: Code(s): I10 - Essential (primary) hypertension Status: Chronic (4) Chronic hyponatremia: Code(s): E87.1 - Hypo-osmolality and hyponatremia Status: Chronic DS: Summary Hospital Course Hospital Course: 01/[address] showed: IMPRESSION: 1. No urolithiasis. 2. Umbilical hernia containing fat. 3. 3.6 cm fusiform aneurysm of infrarenal aorta. 4. Severe lumbar spondylosis. Patient received PT/OT but is not strong enough to return to assisted living. Patient will need to go to a SNF for PT/OT. Patient treated for a UTI (Urine grew klebsiella pneumoniae) and switched from IV antibiotics to oral Cephalexin 500 mg q12 for 8 doses. Status at Discharge Functional status at discharge: uses cane/walker Overall status at discharge: patient is not back to baseline Time Spent with Patient Time attestation: Total time spent providing and/or coordinating discharge services: Exam Const: General: no acute distress and uncomfortable HENMT: Other: Hard of hearing. Resp: Effort & Inspection: normal respiratory effort Auscultation: clear to auscultation bilaterally Cardio: Rate: regular rate Rhythm: regular rhythm GI: GI Palp: Yes Soft to palpation Auscultation: normal bowel sounds Skin: General skin exam: no rashes or lesions noted Extrem: General: normal to inspection DS: Data Data Completed and Pending Labs on day of discharge: Labs from last 24 hours 01/26/24 05:09 WBC 4.9 RBC 3.28 L Hgb 10.9 L Hct 32.7 L MCV 99.7 MCH 33.2 MCHC 33.3 RDW 14.6 H Plt Count 180 MPV 8.0 Immature Gran % (Auto) 0.4 Neut % (Auto) 53.8 Lymph % (Auto) 22.2 [place] % (Auto) 21.4 H Eos % (Auto) 1.6 Baso % (Auto) 0.6 Lymph # (Auto) 1.08 [place] # (Auto) 1.0 H Eos # (Auto) 0.1 Baso # (Auto) 0.0 Abs Immat Gran (auto) 0.02 Absolute Neuts (auto) 2.6 Absolute Nucleated RBC 0.000 Nucleated RBC % 0.0 Sodium 132 L Potassium 4.3 Chloride 99 Carbon Dioxide 28 Anion Gap 5 BUN 31 H Creatinine 0.70 Estim Creat Clear Calc 40 Estimated GFR > 60 Glucose 96 Calcium 8.6 Total Bilirubin 0.5 AST 20 ALT 12 Alkaline Phosphatase 62 Total Protein 6.0 L Albumin 3.2 L Discharge Plan Discharge Attending physician on discharge: Americo Parson Discharging Clinician: Leslie Rodriguez Anticipated Discharge Date/Time: 01/26/24 13:00 Patient Disposition: SNF Activity: august shower Diet: heart healthy Patient Instructions: Back Pain (ED), Urinary Tract Infection in Older Adults (DC) Stand Alone Forms: General Discharge Information, Senior Living Discharge Follow-up/Referrals: Steve Gomez DO [Primary Care Provider] - 1 Week Discharge Medications: New cephalexin 500 mg Capsule 500 mg PO Q12HR Qty: 8 0RF Continued multivitamin [Daily-Holly] Tablet 1 tablet PO DAILY lisinopril 40 mg tablet 40 mg PO DAILY Qty: 90 0RF hydralazine 25 mg tablet 25 mg PO TID lidocaine 5 % Adhesive Patch,Medicated 1 patch TOPICAL DAILY Rx Instructions: leave on most painful area for up to 12 hrs -Right knee furosemide [Lasix] 20 mg tablet 10 mg PO BID Qty: 30 0RF multivitamin with folic acid [Tab-A-Holly] 400 mcg tablet 1 tablet PO DAILY sodium chloride 1,000 mg tablet,soluble 1,000 mg PO DAILY aspirin 81 mg Tablet,Delayed Release (Dr/Ec) 81 mg PO DAILY solifenacin [Vesicare] 5 mg Tablet 5 mg PO DAILY docusate sodium 100 mg Capsule 100 mg PO Q12HR Qty: 60 0RF acetaminophen 325 mg Tablet 975 mg PO T
[2024-01-26 14:00] VITALS: BP 123/58; PULSE 64; RESP 19; TEMP 35.8; O2SAT 98
== END 2024-01-26 15:13 | DRG 563 ==
LOC: ANHED 14:38 → ANH3MEDSUR 15:22 → ANH3MED 17:44
PROVIDERS: Admitting Provider General Practice; Emergency Provider Physician Assistant; PCP Internal Medicine; Visit Provider Nurse Practitioner Family
DX: S39.012A Strain of muscle, fascia and tendon of lower back, initial encounter (principal); E87.1 Hypo-osmolality and hyponatremia; N39.0 Urinary tract infection, site not specified; D64.9 Anemia, unspecified; E78.5 Hyperlipidemia, unspecified; M47.816 Spondylosis without myelopathy or radiculopathy, lumbar region; M51.369 Other intervertebral disc degeneration, lumbar region without mention of lumbar back pain or lower extremity pain; X58.XXXA Exposure to other specified factors, initial encounter; N32.81 Overactive bladder; R32 Unspecified urinary incontinence; M79.651 Pain in right thigh; M79.652 Pain in left thigh; I10 Essential (primary) hypertension; I71.43 Infrarenal abdominal aortic aneurysm, without rupture; M19.90 Unspecified osteoarthritis, unspecified site; Z66 Do not resuscitate; Z96.651 Presence of right artificial knee joint; Z95.0 Presence of cardiac pacemaker; Z86.73 Personal history of transient ischemic attack (TIA), and cerebral infarction without residual deficits; Z79.82 Long term (current) use of aspirin
CPT/HCPCS: 36415; 72131; 74176; 80048; 80053; 81001; 83735; 85025; 87086; 87186; 96365; 96366; 96375; 97110; 97116; 97161; 97165; 97530; 97535; 99285; A9270; G0378; J0360; J0696; J2919; J3360

== ENCOUNTER 2024-04-16 12:11 | Inpatient (IN) | payer MEDICARE, SELFPAY ==
--- NOTE | ~2024-04-16 | XR_ITS ---
EXAMINATION: XR shoulder RT min 2V DATE: 04/17/2024 11:22 INDICATION: Status post intraoperative reduction of a right shoulder dislocation. TECHNIQUE: AP and transscapular Y views of the right shoulder were obtained. COMPARISON: Intraoperative fluoroscopic images dated 04/17/2024 FINDINGS: Recurrent dislocation of the right glenohumeral joint which appeared successfully reduced at the time of the intraoperative fluoroscopic images. No fracture identified. Moderate acromioclavicular osteoa rthritis.Visualized portions of the lungs are clear. Soft tissues are unremarkable. IMPRESSION: Recurrent anterior right glenohumeral dislocation. Reviewed, dictated and finalized at location A. OR CENTER DIRECTOR
--- NOTE | ~2024-04-16 | XR_ITS ---
EXAMINATION: XR surgery orthopedic DATE: 04/17/2024 11:08 INDICATION: Closed reduction of a dislocated right glenohumeral joint. TECHNIQUE: 4 fluoroscopic images of the right shoulder were obtained during procedure performed by Dr Elicia Bullard. Radiologist was not present for the imaging or procedure. The amount of fluoroscopy time used during this procedure was 0.8 minutes. COMPARISON: Right shoulder radiographs dated 04/16/2024 FINDINGS: The previously dislocated right glenohumeral joint appears to been successfully reduced with the bella ral head now centered over the glenoid. No fractures identified. Moderate acromioclavicular osteoarth ritis. IMPRESSION: 1. Fluoroscopy utilized during successful reduction of the previously dislocated right glenohumeral j oint. Reviewed, dictated and finalized at location A. ING MACHINE PILOT CAN ROUTER IMPRESSION: 1. Fluoroscopy utilized during successful reduction of the previously dislocate d right glenohumeral joint.
--- NOTE | ~2024-04-16 | XR_ITS ---
EXAM: XR shoulder RT min 2V DATE: 04/16/2024 19:42 HISTORY: R shoulder reduction . COMPARISON: Same date at 3:13 PM. FINDINGS/IMPRESSION: Persistent anteromedial dislocation of the right humeral head, unchanged. Persistent traumatic versus degenerative ossific densities over the osseous outlet. Reviewed, dictated and finalized at location K. RVISOR POULTRY PROCESSING
--- NOTE | ~2024-04-16 | US_ITS ---
EXAMINATION: US venous doppler [facility] DATE: 04/18/2024 10:17 INDICATION: Bilateral lower limb swelling TECHNIQUE: Grayscale ultrasound images without and with compression and Doppler ultrasound images of the bilateral lower extremity veins were obtained. COMPARISON: None. FINDINGS: The visualized portions of right common femoral vein, profunda (deep) femoral vein, femoral vein, pop liteal vein, posterior tibial veins, peroneal veins, gastrocnemius vein and greater saphenous vein ou tflow are patent. The visualized portions of left common femoral vein, profunda femoral vein, femoral vein, popliteal v ein, posterior tibial veins, peroneal veins, gastrocnemius vein and greater saphenous vein outflow ar e patent. IMPRESSION: 1. No deep venous thrombosis in either lower limb. Reviewed, dictated and finalized at location B. ITION SPECIALIST
--- NOTE | ~2024-04-16 | XR_ITS ---
EXAM: XR shoulder RT min 2V DATE: 04/16/2024 15:15 HISTORY: pain . COMPARISON: None available. FINDINGS: Decreased mineralization. Ossific densities project in the osseous outlet in the axillary view. The femoral head is dislocated medially. No lytic or blastic lesion. Moderate degenerative ramírez ges in the AC joint. Mild degenerative change in the glenohumeral joint. No erosion or periosteal serge nge. Soft tissues within normal limits. IMPRESSION: Right shoulder dislocation. Ossific densities project over the osseous outlet in the axillary view, probably representing degener ative changes, but may represent fracture fragments. No definite donor site identified. Recommend att ention and follow-up post reduction studies. Reviewed, dictated and finalized at location K. WARE QUALITY TEST ENGINEER IMPRESSION: Right shoulder dislocation. Ossific densities project over the osseous outlet in the axillary view, probabl y representing degenerative changes, but may represent fracture fragments. No d efinite donor site identified. Recommend attention and follow-up post reduction studies.
--- NOTE | ~2024-04-16 | XR_ITS ---
EXAMINATION: XR chest 1V Exam Date/Time: 04/16/2024 15:00 BOAT PULLER HISTORY: BLE Comparison: 11/14/2023. RESULT: Lines, tubes, and devices: Left chest pacer with intact leads. Lungs and pleura: Streaky bibasilar opacities. Bilateral costophrenic angle blunting. Cardiomediastinal silhouette: Stable. Other: Right shoulder dislocation. No acute upper abdominal finding. IMPRESSION: Subsegmental bibasilar atelectasis/consolidation. Small bilateral pleural effusions. Right shoulder dislocation. Reviewed, dictated and finalized at location K. PULLER IMPRESSION: Subsegmental bibasilar atelectasis/consolidation. Small bilateral pleural effus ions. Right shoulder dislocation.
[2024-04-16 12:14] VITALS: BP 136/62; PULSE 63; RESP 16; TEMP 36.5; O2SAT 100
--- NOTE | 2024-04-16 14:46 | ECG_ITS ---
Test Date: 2024-04-16 14:55:45 Measurements Intervals [place] Rate: 86 P: 6 IA: 136 QRS: 0 QRSD: 94 T: 19 QT: 386 QTc: 464 Interpretive Statements SINUS RHYTHM No previous ECG available for comparison Electronically Signed On 04-16-2024 22:41:28 [employer] by Guru Mejia M.D.
--- NOTE | 2024-04-16 14:47 | ED.EXTPRO ---
HPI - Extremity Problem General Chief complaint: Extremity Problem,Nontraumatic <Eugenia Ambriz PA-C - Last Filed: 04/16/24 14:49> Stated complaint: BLE edema, R shoulder pain xdays <Eugenia Ambriz PA-C - Last Filed: 04/16/24 14:49> Time Seen by Provider: 04/16/24 17:41 <Eugenia Ambriz PA-C - Last Filed: 04/16/24 14:49> Focused HPI: 88 y/o female with history of hypertension, AAA presents via EMS from local [facility] for new onset lower extremity edema. Patient is unsure how long her legs have been swollen. She has no complaints other than lower extremity edema. Denies chest pain or shortness of breath, cough or congestion, abdominal pain or fever. No history of CHF. Per chart review she is not on any diuretics. GENERAL: Well-appearing, well-nourished, and in no acute distress. HEAD: Normocephalic, atraumatic. CHEST: Clear to auscultation. ?No respiratory distress. EXT: 4+ pitting edema to bilateral lower extremities extending to the proximal tibia no overlying erythema. Weeping to the R >L HEART: Regular rate and rhythm.? NEURO: ?Alert and oriented x3. Patient screened in triage and initial orders placed.? ?Additional care and disposition to be based upon?diagnostic testing and treatment. <Eugenia Ambriz PA-C - Last Filed: 04/16/24 14:49> Source: patient <Kadeem Syed PA-C - Last Filed: 04/16/24 23:23> Mode of arrival: ambulatory <Kadeem Syed PA-C - Last Filed: 04/16/24 23:23> Limitations: no limitations <DEBRA Franco Last Filed: 04/16/24 23:23> History of Present Illness HPI Narrative: Agree with triage note above. Additionally patient notes to myself that she has had right shoulder pain and is attributing it to arthritis. She denies any specific injury. She is alert oriented x4 <DEBRA Franco Last Filed: 04/16/24 23:23> Related Data Home medications: Home Medications ?Medication ?Instructions ?Recorded ?Confirmed ?Last Taken ?Type aspirin 81 mg tablet,delayed 81 mg PO DAILY 10/13/21 03/13/24 Unknown History release multivitamin (Daily-Holly tablet) 1 tablet PO DAILY 05/03/23 03/13/24 Unknown History multivitamin with folic acid 400 1 tablet PO DAILY 11/14/23 03/13/24 Unknown History mcg tablet (Tab-A-Holly) sodium chloride 1,000 mg soluble 1,000 mg PO DAILY 11/14/23 03/13/24 Unknown History tablet hydralazine 25 mg tablet 25 mg PO TID 12/11/23 03/13/24 Unknown History lidocaine 5 % topical patch 1 patch topical DAILY 01/23/24 03/13/24 Unknown History <Eugenia Ambriz PA-C - Last Filed: 04/16/24 14:49> Allergies/Adverse reactions: Allergies Allergy/AdvReac Type Severity Reaction Status Date / Time atorvastatin Allergy Unknown Other Verified 04/16/24 12:14 clonidine Allergy Unknown Unknown Verified 04/16/24 12:14 evolocumab (From Repatha Allergy Unknown Unknown Verified 04/16/24 12:14 SureClick) metoprolol Allergy Unknown Unknown Verified 04/16/24 12:14 nifedipine Allergy Unknown Unknown Verified 04/16/24 12:14 tramadol Allergy Unknown Unknown Verified 04/16/24 12:14 amlodipine AdvReac Anaphylaxis Verified 04/16/24 12:14 losartan AdvReac Anaphylaxis Verified 04/16/24 12:14 <Eugenia Ambriz PA-C - Last Filed: 04/16/24 14:49> [facility] Past Medical History Medical History: Medical History (Updated 04/16/24 @ 21:40 by Kadeem Syed PA-C) 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 Chronic anemia Hard of hearing Hyperlipidemia Chronic hyponatremia Overactive bladder Hypertension Ischemic stroke <Eugenia Ambriz PA-C - Last Filed: 04/16/24 14:49> Surgical History Surgical History: Surgical History History of arthroplasty of right knee History of renal stent History of permanent cardiac pacemaker placement <Eugenia Ambriz PA-C - Last Filed: 04/16/24 14:49> Family History Family History: Family History Mother CAD (coronary artery disease) Father Acute myocardial infarction Sibling No problems noted. <Eugenia Ambriz PA-C - Last Filed: 04/16/24 14:49> Social History Social History: Social History Social History: Surrogate medical decision maker: Aura Perez, daughter. Code status: Do not resuscitate. Smoking status: Never smoker Second hand tobacco smoke exposure: No Alcohol intake: never Substance use: never Substance use type: does not use Do You Feel Safe in your Home?: Yes Lack of Transportation: No Lack of Food: Never True Current Housing: I Have Housing Concerned About Future Housing: No Difficulty Paying Gas/Electric Bills: No Difficulty Paying for Meds: No Currently Unemployed: No Education: High School Diploma/GED Difficulty w/ Childcare or Family Care: No Living arrangements: assisted living Additional living arrangements comments: . Lives in assisted living at [facility]. Currently at [facility] for rehab. Occupation/Education: retired Additional occupation/education comments: Retired from working at a bank. Spiritual care concerns: No <Eugenia Ambriz PA-C - Last Filed: 04/16/24 14:49> Exam Narrative: GENERAL: Well-appearing, well-nourished, and in no acute distress. HEAD: Normocephalic, atraumatic. EYES: PERRLA and EOMI. ENT: Nares clear, no rhinorrhea or epistaxis. Mucous membranes moist. Oropharynx without tonsillar hypertrophy exudate or other lesions. NECK: Supple. No adenopathy or masses. CHEST: No respiratory distress. Clear to auscultation. No wheezes rales or rhonchi HEART: Regular rate and rhythm. No murmur heard. Normal peripheral pulses. ABDOMEN: Soft, nontender, nondistended, normal active bowel sounds. MSK: Normal range of motion. 4+ pitting edema to the bilateral lower extremities. Unable to range the right shoulder actively. It appears mildly deformed. No bruising. No crepitus. Neurovascularly intact distally. SKIN: Warm, dry, no rash. NEURO: Alert and oriented x3-4. Unsure of situation but otherwise fully oriented. No focal deficits. PSYCH: Normal mood and affect. <Kadeem Syed PA-C - Last Filed: 04/16/24 23:23> Course Consultations Consultation #1: Spoke with Dr. Bullard (Ortho): We discussed that this shoulder dislocation may be chronic in nature. He recommends admitting to the hospitalist and they will assess for need for reduction with anesthesia. Recommends NPO midnight <Kadeem Syed PA-C - Last Filed: 04/16/24 23:23> Date: 04/16/24 <DEBRA Franco Last Filed: 04/16/24 23:23> Time: 21:00 <DEBRA Franco Last Filed: 04/16/24 23:23> Vital Signs Vital signs: Vital Signs Temperature 97.7 F 04/16/24 12:14 Pulse Rate 63 04/16/24 12:14 Respiratory Rate 16 04/16/24 12:14 Blood Pressure 136/62 04/16/24 12:14 Pulse Oximetry 100 04/16/24 12:14 Temperature 97.7 F 04/16/24 12:14 Pulse Rate 82 04/16/24 23:02 Respiratory Rate 16 04/16/24 23:02 Blood Pressure 142/90 H 04/16/24 23:02 Pulse Oximetry 100 04/16/24 23:02 Oxygen Delivery Nasal Cannula 04/16/24 19:15 Oxygen Flow Rate 2 04/16/24 19:15 <Eugenia Ambriz PA-C - Last Filed: 04/16/24 14:49> Vital Signs Temperature 97.7 F 04/16/24 12:14 Pulse Rate 63 04/16/24 12:14 Respiratory Rate 16 04/16/24 12:14 Blood Pressure 136/62 04/16/24 12:14 Pulse Oximetry 100 04/16/24 12:14 Temperature 97.7 F 04/16/24 12:14 Pulse Rate 82 04/16/24 23:02 Respiratory Rate 16 04/16/24 23:02 Blood Pressure 142/90 H 04/16/24 23:02 Pulse Oximetry 100 04/16/24 23:02 Oxygen Delivery Nasal Cannula 04/16/24 19:15 Oxygen Flow Rate 2 04/16/24 19:15 <Kadeem Syed PA-C - Last Filed: 04/16/24 23:23> Procedures Nerve Block Nerve Block 1: Nerve block date: 04/16/24 <Kadeem Syed PA-C - Last Filed: 04/16/24 23:23> Nerve block time: 19:28 <Kadeem Syed PA-C - Last Filed: 04/16/24 23:23> Time out performed: Yes <Kadeem Syed PA-C - Last Filed: 04/16/24 23:23> Local Anesthetic: lidocaine 1% <Kadeem Syed PA-C - Last Filed: 04/16/24 23:23> Amount of anesthesia used (mL): 5 <Kadeem Syed PA-C - Last Filed: 04/16/24 23:23> Side: right <Kadeem Syed PA-C - Last Filed: 04/16/24 23:23> Nerve Blocks: other (R scalene block) <Kadeem Syed PA-C - Last Filed: 04/16/24 23:23> Procedure Successful: Yes <Kadeem Syed PA-C - Last Filed: 04/16/24 23:23> Patient Tolerated Procedure: well <Kadeem Syed PA-C - Last Filed: 04/16/24 23:23> Complications: none <Kadeem Syed PA-C - Last Filed: 04/16/24 23:23> Orthopedic Joint Reduction Joint #1: Orthopedic Joint Reduction Date: 04/16/24 <Kadeem Syed PA-C - Last Filed: 04/16/24 23:23> Orthopedic Joint Reduction Time: 19:00 <Kadeem Syed PA-C - Last Filed: 04/16/24 23:23> Time Out Performed: Yes <Kadeem Syed PA-C - Last Filed: 04/16/24 23:23> Side: right <DEBRA Franco Last Filed: 04/16/24 23:23> Joint Reduction Location: shoulder <Kadeem Syed PA-C - Last Filed: 04/16/24 23:23> Analgesia: nerve block <Kadeem Syed PA-C - Last Filed: 04/16/24 23:23> Pre-Procedure Neuro Vascular Exam: normal <Kadeem Syed PA-C - Last Filed: 04/16/24 23:23> Local Anesthesia: lidocaine 1% <Kadeem Syed PA-C - Last Filed: 04/16/24 23:23> Amount of anesthesic used (mL): 5 <Kadeem Syed PA-C - Last Filed: 04/16/24 23:23> Shoulder Technique Used (if applicable): traction/counter-traction, scapula manipulation and external rotation <Kadeem Syed PA-C - Last Filed: 04/16/24 23:23> Post-reduction neuro exam: intact <Kadeem Syed PA-C - Last Filed: 04/16/24 23:23> Post-reduction vascular: intact <Kadeem Syed PA-C - Last Filed: 04/16/24 23:23> Post Reduction X-Ray Obtained: Yes <Kadeem Syed PA-C - Last Filed: 04/16/24 23:23> Post Reduction X-Ray Results: not reduced <Kadeem Syed PA-C - Last Filed: 04/16/24 23:23> Splint Applied: No <Kadeem Syed PA-C - Last Filed: 04/16/24 23:23> Patient Tolerated Procedure: well <Kadeem Syed PA-C - Last Filed: 04/16/24 23:23> MDM - Extremity (Nontraumatic) MDM Narrative Medical decision making narrative: This is a 80-year-old female who presents to the ED from [facility] for chief complaint of lower leg swelling and right shoulder pain. Vitals are normal on arrival. Saturating well on room air. Legs are quite edematous and shoulder has loss of ROM. Lab work shows elevated BNP at 4:00 p.m.. CBC shows stable anemia. Sodium slightly low 130. Troponin initially elevated is 0.042 and downtrending on serial troponin of 0.036. She has no chest pain to indicate AMI. Urinalysis unremarkable. Chest x-ray does not show evidence of pleural effusion or overt fluid overload on the lungs. The radiologist did comment on the right shoulder being dislocated so a series of shoulder x-rays were obtained which confirmed dislocation. After an interscalene block on the right, reduction was attempted. Confirmatory x-rays were still positive for dislocation. Again attempted reduction but unsuccessful clinically. Feel this is likely due to the dislocation being more chronic in nature. Patient is unable to recall any specific inciting event for the dislocation. Ortho was contacted and they are agreeable to the see the patient tomorrow and recommend keeping it p.o.. Patient was started on Lasix for lower leg edema with suspected CHF exacerbation. She was started on 2 L oxygen nasal cannula. Hospitalist, LISSA Nolasco is agreeable with plan for admission. Patient is understanding and agreeable with plan to be admitted to the hospital. <Kadeem Syed PA-C - Last Filed: 04/16/24 23:23> Lab Data Result diagrams: 04/16/24 15:32 04/16/24 15:32 <Eugenia Ambriz PA-C - Last Filed: 04/16/24 14:49> Labs: Lab Results 04/16/24 04/16/24 04/16/24 Range/Units 15:32 15:32 15:32 WBC 4.1 L (4.5-10.0) K/mm3 RBC 3.14 L (4.2-5.4) M/mm3 Hgb 9.7 L (12.0-15.0) g/dL Hct 30.5 L (37.0-47.0) % MCV 97.1 (80-100) fl MCH 30.9 (26-34) pg MCHC 31.8 L (32-36) g/dl RDW 16.9 H (11.5-14.5) % Plt Count 195 (150-375) k/mm3 MPV 8.3 (7.4-10.4) fl Immature Gran % (Auto) 0.0 (0-0.5) % Neut % (Auto) 62.8 (45.5-73.1) % Lymph % (Auto) 16.3 L (18.3-44.2) % Dickenson % (Auto) 19.2 H (2.6-8.5) % Eos % (Auto) 1.0 (0-4.4) % Baso % (Auto) 0.7 (0.2-1.2) % Lymph # (Auto) 0.67 L (0.9-3.2) K/mm3 Dickenson # (Auto) 0.8 H (0.1-0.6) K/mm3 Eos # (Auto) 0.0 (0-0.3) K/mm3 Baso # (Auto) 0.0 (0.0-0.1) K/mm3 Abs Immat Gran (auto) 0.00 (0.00-0.031) K/mm3 Absolute Neuts (auto) 2.6 (1.3-6.7) K/mm3 Absolute Nucleated RBC 0.000 (0.0-0.012) K/mm3 Nucleated RBC % 0.0 (0.0-0.2) % PT 14.6 (11.1-14.7) Seconds INR 1.1 APTT 55.8 H (22.3-36.8) Seconds Sodium 130 L Cancelled (137-145) mmol/L Potassium 4.8 Cancelled (3.4-5.0) mmol/L Chloride 100 (98-107) mmol/L Carbon Dioxide (22-30) mmol/L Anion Gap (4-12) mmol/L BUN (7-17) mg/dL Creatinine (0.7-1.0) mg/dL Estim Creat Clear Calc Estimated GFR (59 - ) Glucose (65-110) mg/dL Calcium (8.4-10.2) mg/dL Total Bilirubin (0.2-1.3) mg/dL AST (14-36) U/L ALT (6-35) U/L Alkaline Phosphatase (38-126) U/L Troponin I (0.000-0.034) ng/mL NT-Pro-B Natriuret Pep (19.9-100) pg/mL Total Protein (6.3-8.2) g/dL Albumin (3.5-5.1) g/dL Urine Color (Yellow) Urine Appearance (Clear) Urine pH (5.0-9.0) Ur Specific [place] (1.001-1.035) Urine Protein (Negative) mg/dL Urine Glucose (UA) (Negative) mg/dL Urine Ketones (Negative) mg/dL Ur Blood (Man) (Negative) Urine Nitrate (Negative) Urine Bilirubin (Negative) Urine Urobilinogen (<2.0) mg/dL Leukocyte Esterase Rfl (Negative) ZULLY/UL 04/16/24 04/16/24 04/16/24 Range/Units 15:32 15:32 15:32 WBC (4.5-10.0) K/mm3 RBC (4.2-5.4) M/mm3 Hgb (12.0-15.0) g/dL Hct (37.0-47.0) % MCV (80-100) fl MCH (26-34) pg MCHC (32-36) g/dl RDW (11.5-14.5) % Plt Count (150-375) k/mm3 MPV (7.4-10.4) fl Immature Gran % (Auto) (0-0.5) % Neut % (Auto) (45.5-73.1) % Lymph % (Auto) (18.3-44.2) % Dickenson % (Auto) (2.6-8.5) % Eos % (Auto) (0-4.4) % Baso % (Auto) (0.2-1.2) % Lymph # (Auto) (0.9-3.2) K/mm3 Dickenson # (Auto) (0.1-0.6) K/mm3 Eos # (Auto) (0-0.3) K/mm3 Baso # (Auto) (0.0-0.1) K/mm3 Abs Immat Gran (auto) (0.00-0.031) K/mm3 Absolute Neuts (auto) (1.3-6.7) K/mm3 Absolute Nucleated RBC (0.0-0.012) K/mm3 Nucleated RBC % (0.0-0.2) % PT (11.1-14.7) Seconds INR APTT (22.3-36.8) Seconds Sodium (137-145) mmol/L Potassium (3.4-5.0) mmol/L Chloride Cancelled (98-107) mmol/L Carbon Dioxide 29 Cancelled (22-30) mmol/L Anion Gap 1 L Cancelled (4-12) mmol/L BUN 22 H (7-17) mg/dL Creatinine (0.7-1.0) mg/dL Estim Creat Clear Calc Estimated GFR (59 - ) Glucose (65-110) mg/dL Calcium (8.4-10.2) mg/dL Total Bilirubin (0.2-1.3) mg/dL AST (14-36) U/L ALT (6-35) U/L Alkaline Phosphatase (38-126) U/L Troponin I (0.000-0.034) ng/mL NT-Pro-B Natriuret Pep (19.9-100) pg/mL Total Protein (6.3-8.2) g/dL Albumin (3.5-5.1) g/dL Urine Color (Yellow) Urine Appearance (Clear) Urine pH (5.0-9.0) Ur Specific [place] (1.001-1.035) Urine Protein (Negative) mg/dL Urine Glucose (UA) (Negative) mg/dL Urine Ketones (Negative) mg/dL Ur Blood (Man) (Negative) Urine Nitrate (Negative) Urine Bilirubin (Negative) Urine Urobilinogen (<2.0) mg/dL Leukocyte Esterase Rfl (Negative) ZULLY/UL 04/16/24 04/16/24 04/16/24 Range/Units 15:32 15:32 15:32 WBC (4.5-10.0) K/mm3 RBC (4.2-5.4) M/mm3 Hgb (12.0-15.0) g/dL Hct (37.0-47.0) % MCV (80-100) fl MCH (26-34) pg MCHC (32-36) g/dl RDW (11.5-14.5) % Plt Count (150-375) k/mm3 MPV (7.4-10.4) fl Immature Gran % (Auto) (0-0.5) % Neut % (Auto) (45.5-73.1) % Lymph % (Auto) (18.3-44.2) % Dickenson % (Auto) (2.6-8.5) % Eos % (Auto) (0-4.4) % Baso % (Auto) (0.2-1.2) % Lymph # (Auto) (0.9-3.2) K/mm3 Dickenson # (Auto) (0.1-0.6) K/mm3 Eos # (Auto) (0-0.3) K/mm3 Baso # (Auto) (0.0-0.1) K/mm3 Abs Immat Gran (auto) (0.00-0.031) K/mm3 Absolute Neuts (auto) (1.3-6.7) K/mm3 Absolute Nucleated RBC (0.0-0.012) K/mm3 Nucleated RBC % (0.0-0.2) % PT (11.1-14.7) Seconds INR APTT (22.3-36.8) Seconds Sodium (137-145) mmol/L Potassium (3.4-5.0) mmol/L Chloride (98-107) mmol/L Carbon Dioxide (22-30) mmol/L Anion Gap (4-12) mmol/L BUN Cancelled (7-17) mg/dL Creatinine 0.60 L Cancelled (0.7-1.0) mg/dL Estim Creat Clear Calc Not Reportable Cancelled Estimated GFR > 60 (59 - ) Glucose (65-110) mg/dL Calcium (8.4-10.2) mg/dL Total Bilirubin (0.2-1.3) mg/dL AST (14-36) U/L ALT (6-35) U/L Alkaline Phosphatase (38-126) U/L Troponin I (0.000-0.034) ng/mL NT-Pro-B Natriuret Pep (19.9-100) pg/mL Total Protein (6.3-8.2) g/dL Albumin (3.5-5.1) g/dL Urine Color (Yellow) Urine Appearance (Clear) Urine pH (5.0-9.0) Ur Specific [place] (1.001-1.035) Urine Protein (Negative) mg/dL Urine Glucose (UA) (Negative) mg/dL Urine Ketones (Negative) mg/dL Ur Blood (Man) (Negative) Urine Nitrate (Negative) Urine Bilirubin (Negative) Urine Urobilinogen (<2.0) mg/dL Leukocyte Esterase Rfl (Negative) ZULLY/UL 12/04/16/24 04/16/24 Range/Units 15:32 15:32 15:32 WBC (4.5-10.0) K/mm3 RBC (4.2-5.4) M/mm3 Hgb (12.0-15.0) g/dL Hct (37.0-47.0) % MCV (80-100) fl MCH (26-34) pg MCHC (32-36) g/dl RDW (11.5-14.5) % Plt Count (150-375) k/mm3 MPV (7.4-10.4) fl Immature Gran % (Auto) (0-0.5) % Neut % (Auto) (45.5-73.1) % Lymph % (Auto) (18.3-44.2) % Dickenson % (Auto) (2.6-8.5) % Eos % (Auto) (0-4.4) % Baso % (Auto) (0.2-1.2) % Lymph # (Auto) (0.9-3.2) K/mm3 Dickenson # (Auto) (0.1-0.6) K/mm3 Eos # (Auto) (0-0.3) K/mm3 Baso # (Auto) (0.0-0.1) K/mm3 Abs Immat Gran (auto) (0.00-0.031) K/mm3 Absolute Neuts (auto) (1.3-6.7) K/mm3 Absolute Nucleated RBC (0.0-0.012) K/mm3 Nucleated RBC % (0.0-0.2) % PT (11.1-14.7) Seconds INR APTT (22.3-36.8) Seconds Sodium (137-145) mmol/L Potassium (3.4-5.0) mmol/L Chloride (98-107) mmol/L Carbon Dioxide (22-30) mmol/L Anion Gap (4-12) mmol/L BUN (7-17) mg/dL Creatinine (0.7-1.0) mg/dL Estim Creat Clear Calc Estimated GFR Cancelled (59 - ) Glucose 80 Cancelled (65-110) mg/dL Calcium 9.1 Cancelled (8.4-10.2) mg/dL Total Bilirubin 0.7 (0.2-1.3) mg/dL AST (14-36) U/L ALT (6-35) U/L Alkaline Phosphatase (38-126) U/L Troponin I (0.000-0.034) ng/mL NT-Pro-B Natriuret Pep (19.9-100) pg/mL Total Protein (6.3-8.2) g/dL Albumin (3.5-5.1) g/dL Urine Color (Yellow) Urine Appearance (Clear) Urine pH (5.0-9.0) Ur Specific [place] (1.001-1.035) Urine Protein (Negative) mg/dL Urine Glucose (UA) (Negative) mg/dL Urine Ketones (Negative) mg/dL Ur Blood (Man) (Negative) Urine Nitrate (Negative) Urine Bilirubin (Negative) Urine Urobilinogen (<2.0) mg/dL Leukocyte Esterase Rfl (Negative) ZULLY/UL 04/16/24 04/16/24 04/16/24 Range/Units 15:32 15:32 15:32 WBC (4.5-10.0) K/mm3 RBC (4.2-5.4) M/mm3 Hgb (12.0-15.0) g/dL Hct (37.0-47.0) % MCV (80-100) fl MCH (26-34) pg MCHC (32-36) g/dl RDW (11.5-14.5) % Plt Count (150-375) k/mm3 MPV (7.4-10.4) fl Immature Gran % (Auto) (0-0.5) % Neut % (Auto) (45.5-73.1) % Lymph % (Auto) (18.3-44.2) % Dickenson % (Auto) (2.6-8.5) % Eos % (Auto) (0-4.4) % Baso % (Auto) (0.2-1.2) % Lymph # (Auto) (0.9-3.2) K/mm3 Dickenson # (Auto) (0.1-0.6) K/mm3 Eos # (Auto) (0-0.3) K/mm3 Baso # (Auto) (0.0-0.1) K/mm3 Abs Immat Gran (auto) (0.00-0.031) K/mm3 Absolute Neuts (auto) (1.3-6.7) K/mm3 Absolute Nucleated RBC (0.0-0.012) K/mm3 Nucleated RBC % (0.0-0.2) % PT (11.1-14.7) Seconds INR APTT (22.3-36.8) Seconds Sodium (137-145) mmol/L Potassium (3.4-5.0) mmol/L Chloride (98-107) mmol/L Carbon Dioxide (22-30) mmol/L Anion Gap (4-12) mmol/L BUN (7-17) mg/dL Creatinine (0.7-1.0) mg/dL Estim Creat Clear Calc Estimated GFR (59 - ) Glucose (65-110) mg/dL Calcium (8.4-10.2) mg/dL Total Bilirubin Cancelled (0.2-1.3) mg/dL AST 37 H Cancelled (14-36) U/L ALT 25 Cancelled (6-35) U/L Alkaline Phosphatase 103 (38-126) U/L Troponin I (0.000-0.034) ng/mL NT-Pro-B Natriuret Pep (19.9-100) pg/mL Total Protein (6.3-8.2) g/dL Albumin (3.5-5.1) g/dL Urine Color (Yellow) Urine Appearance (Clear) Urine pH (5.0-9.0) Ur Specific [place] (1.001-1.035) Urine Protein (Negative) mg/dL Urine Glucose (UA) (Negative) mg/dL Urine Ketones (Negative) mg/dL Ur Blood (Man) (Negative) Urine Nitrate (Negative) Urine Bilirubin (Negative) Urine Urobilinogen (<2.0) mg/dL Leukocyte Esterase Rfl (Negative) ZULLY/UL 04/16/24 04/16/24 04/16/24 Range/Units 15:32 15:32 15:32 WBC (4.5-10.0) K/mm3 RBC (4.2-5.4) M/mm3 Hgb (12.0-15.0) g/dL Hct (37.0-47.0) % MCV (80-100) fl MCH (26-34) pg MCHC (32-36) g/dl RDW (11.5-14.5) % Plt Count (150-375) k/mm3 MPV (7.4-10.4) fl Immature Gran % (Auto) (0-0.5) % Neut % (Auto) (45.5-73.1) % Lymph % (Auto) (18.3-44.2) % Dickenson % (Auto) (2.6-8.5) % Eos % (Auto) (0-4.4) % Baso % (Auto) (0.2-1.2) % Lymph # (Auto) (0.9-3.2) K/mm3 Dickenson # (Auto) (0.1-0.6) K/mm3 Eos # (Auto) (0-0.3) K/mm3 Baso # (Auto) (0.0-0.1) K/mm3 Abs Immat Gran (auto) (0.00-0.031) K/mm3 Absolute Neuts (auto) (1.3-6.7) K/mm3 Absolute Nucleated RBC (0.0-0.012) K/mm3 Nucleated RBC % (0.0-0.2) % PT (11.1-14.7) Seconds INR APTT (22.3-36.8) Seconds Sodium (137-145) mmol/L Potassium (3.4-5.0) mmol/L Chloride (98-107) mmol/L Carbon Dioxide (22-30) mmol/L Anion Gap (4-12) mmol/L BUN (7-17) mg/dL Creatinine (0.7-1.0) mg/dL Estim Creat Clear Calc Estimated GFR (59 - ) Glucose (65-110) mg/dL Calcium (8.4-10.2) mg/dL Total Bilirubin (0.2-1.3) mg/dL AST (14-36) U/L ALT (6-35) U/L Alkaline Phosphatase Cancelled (38-126) U/L Troponin I 0.042 H* (0.000-0.034) ng/mL NT-Pro-B Natriuret Pep 1890 H Cancelled (19.9-100) pg/mL Total Protein 6.0 L Cancelled (6.3-8.2) g/dL Albumin 3.7 (3.5-5.1) g/dL Urine Color (Yellow) Urine Appearance (Clear) Urine pH (5.0-9.0) Ur Specific [place] (1.001-1.035) Urine Protein (Negative) mg/dL Urine Glucose (UA) (Negative) mg/dL Urine Ketones (Negative) mg/dL Ur Blood (Man) (Negative) Urine Nitrate (Negative) Urine Bilirubin (Negative) Urine Urobilinogen (<2.0) mg/dL Leukocyte Esterase Rfl (Negative) ZULLY/UL 04/16/24 04/16/24 04/16/24 Range/Units 15:32 21:59 22:27 WBC (4.5-10.0) K/mm3 RBC (4.2-5.4) M/mm3 Hgb (12.0-15.0) g/dL Hct (37.0-47.0) % MCV (80-100) fl MCH (26-34) pg MCHC (32-36) g/dl RDW (11.5-14.5) % Plt Count (150-375) k/mm3 MPV (7.4-10.4) fl Immature Gran % (Auto) (0-0.5) % Neut % (Auto) (45.5-73.1) % Lymph % (Auto) (18.3-44.2) % [place] % (Auto) (2.6-8.5) % Eos % (Auto) (0-4.4) % Baso % (Auto) (0.2-1.2) % Lymph # (Auto) (0.9-3.2) K/mm3 [place] # (Auto) (0.1-0.6) K/mm3 Eos # (Auto) (0-0.3) K/mm3 Baso # (Auto) (0.0-0.1) K/mm3 Abs Immat Gran (auto) (0.00-0.031) K/mm3 Absolute Neuts (auto) (1.3-6.7) K/mm3 Absolute Nucleated RBC (0.0-0.012) K/mm3 Nucleated RBC % (0.0-0.2) % PT (11.1-14.7) Seconds INR APTT (22.3-36.8) Seconds Sodium (137-145) mmol/L Potassium (3.4-5.0) mmol/L Chloride (98-107) mmol/L Carbon Dioxide (22-30) mmol/L Anion Gap (4-12) mmol/L BUN (7-17) mg/dL Creatinine (0.7-1.0) mg/dL Estim Creat Clear Calc Estimated GFR (59 - ) Glucose (65-110) mg/dL Calcium (8.4-10.2) mg/dL Total Bilirubin (0.2-1.3) mg/dL AST (14-36) U/L ALT (6-35) U/L Alkaline Phosphatase (38-126) U/L Troponin I 0.036 H* (0.000-0.034) ng/mL NT-Pro-B Natriuret Pep (19.9-100) pg/mL Total Protein (6.3-8.2) g/dL Albumin Cancelled (3.5-5.1) g/dL Urine Color Yellow (Yellow) Urine Appearance Clear (Clear) Urine pH 5.0 (5.0-9.0) Ur Specific [place] 1.008 (1.001-1.035) Urine Protein Negative (Negative) mg/dL Urine Glucose (UA) Negative (Negative) mg/dL Urine Ketones Trace H (Negative) mg/dL Ur Blood (Man) Negative (Negative) Urine Nitrate Negative (Negative) Urine Bilirubin Negative (Negative) Urine Urobilinogen 0.2 (<2.0) mg/dL Leukocyte Esterase Rfl Negative (Negative) ZULLY/UL <Eugenia Ambriz PA-C - Last Filed: 04/16/24 14:49> Lab Results 04/16/24 04/16/24 04/16/24 Range/Units 15:32 15:32 15:32 WBC 4.1 L (4.5-10.0) K/mm3 RBC 3.14 L (4.2-5.4) M/mm3 Hgb 9.7 L (12.0-15.0) g/dL Hct 30.5 L (37.0-47.0) % MCV 97.1 (80-100) fl MCH 30.9 (26-34) pg MCHC 31.8 L (32-36) g/dl RDW 16.9 H (11.5-14.5) % Plt Count 195 (150-375) k/mm3 MPV 8.3 (7.4-10.4) fl Immature Gran % (Auto) 0.0 (0-0.5) % Neut % (Auto) 62.8 (45.5-73.1) % Lymph % (Auto) 16.3 L (18.3-44.2) % [place]enson % (Auto) 19.2 H (2.6-8.5) % Eos % (Auto) 1.0 (0-4.4) % Baso % (Auto) 0.7 (0.2-1.2) % Lymph # (Auto) 0.67 L (0.9-3.2) K/mm3 [place] # (Auto) 0.8 H (0.1-0.6) K/mm3 Eos # (Auto) 0.0 (0-0.3) K/mm3 Baso # (Auto) 0.0 (0.0-0.1) K/mm3 Abs Immat Gran (auto) 0.00 (0.00-0.031) K/mm3 Absolute Neuts (auto) 2.6 (1.3-6.7) K/mm3 Absolute Nucleated RBC 0.000 (0.0-0.012) K/mm3 Nucleated RBC % 0.0 (0.0-0.2) % PT 14.6 (11.1-14.7) Seconds INR 1.1 APTT 55.8 H (22.3-36.8) Seconds Sodium 130 L Cancelled (137-145) mmol/L Potassium 4.8 Cancelled (3.4-5.0) mmol/L Chloride 100 (98-107) mmol/L Carbon Dioxide (22-30) mmol/L Anion Gap (4-12) mmol/L BUN (7-17) mg/dL Creatinine (0.7-1.0) mg/dL Estim Creat Clear Calc Estimated GFR (59 - ) Glucose (65-110) mg/dL Calcium (8.4-10.2) mg/dL Total Bilirubin (0.2-1.3) mg/dL AST (14-36) U/L ALT (6-35) U/L Alkaline Phosphatase (38-126) U/L Troponin I (0.000-0.034) ng/mL NT-Pro-B Natriuret Pep (19.9-100) pg/mL Total Protein (6.3-8.2) g/dL Albumin (3.5-5.1) g/dL Urine Color (Yellow) Urine Appearance (Clear) Urine pH (5.0-9.0) Ur Specific [place] (1.001-1.035) Urine Protein (Negative) mg/dL Urine Glucose (UA) (Negative) mg/dL Urine Ketones (Negative) mg/dL Ur Blood (Man) (Negative) Urine Nitrate (Negative) Urine Bilirubin (Negative) Urine Urobilinogen (<2.0) mg/dL Leukocyte Esterase Rfl (Negative) ZULLY/UL 04/16/24 04/16/24 04/16/24 Range/Units 15:32 15:32 15:32 WBC (4.5-10.0) K/mm3 RBC (4.2-5.4) M/mm3 Hgb (12.0-15.0) g/dL Hct (37.0-47.0) % MCV (80-100) fl MCH (26-34) pg MCHC (32-36) g/dl RDW (11.5-14.5) % Plt Count (150-375) k/mm3 MPV (7.4-10.4) fl Immature Gran % (Auto) (0-0.5) % Neut % (Auto) (45.5-73.1) % Lymph % (Auto) (18.3-44.2) % Dickenson % (Auto) (2.6-8.5) % Eos % (Auto) (0-4.4) % Baso % (Auto) (0.2-1.2) % Lymph # (Auto) (0.9-3.2) K/mm3 [place]enson # (Auto) (0.1-0.6) K/mm3 Eos # (Auto) (0-0.3) K/mm3 Baso # (Auto) (0.0-0.1) K/mm3 Abs Immat Gran (auto) (0.00-0.031) K/mm3 Absolute Neuts (auto) (1.3-6.7) K/mm3 Absolute Nucleated RBC (0.0-0.012) K/mm3 Nucleated RBC % (0.0-0.2) % PT (11.1-14.7) Seconds INR APTT (22.3-36.8) Seconds Sodium (137-145) mmol/L Potassium (3.4-5.0) mmol/L Chloride Cancelled (98-107) mmol/L Carbon Dioxide 29 Cancelled (22-30) mmol/L Anion Gap 1 L Cancelled (4-12) mmol/L BUN 22 H (7-17) mg/dL Creatinine (0.7-1.0) mg/dL Estim Creat Clear Calc Estimated GFR (59 - ) Glucose (65-110) mg/dL Calcium (8.4-10.2) mg/dL Total Bilirubin (0.2-1.3) mg/dL AST (14-36) U/L ALT (6-35) U/L Alkaline Phosphatase (38-126) U/L Troponin I (0.000-0.034) ng/mL NT-Pro-B Natriuret Pep (19.9-100) pg/mL Total Protein (6.3-8.2) g/dL Albumin (3.5-5.1) g/dL Urine Color (Yellow) Urine Appearance (Clear) Urine pH (5.0-9.0) Ur Specific [place] (1.001-1.035) Urine Protein (Negative) mg/dL Urine Glucose (UA) (Negative) mg/dL Urine Ketones (Negative) mg/dL Ur Blood (Man) (Negative) Urine Nitrate (Negative) Urine Bilirubin (Negative) Urine Urobilinogen (<2.0) mg/dL Leukocyte Esterase Rfl (Negative) ZULLY/UL 04/16/24 04/16/24 04/16/24 Range/Units 15:32 15:32 15:32 WBC (4.5-10.0) K/mm3 RBC (4.2-5.4) M/mm3 Hgb (12.0-15.0) g/dL Hct (37.0-47.0) % MCV (80-100) fl MCH (26-34) pg MCHC (32-36) g/dl RDW (11.5-14.5) % Plt Count (150-375) k/mm3 MPV (7.4-10.4) fl Immature Gran % (Auto) (0-0.5) % Neut % (Auto) (45.5-73.1) % Lymph % (Auto) (18.3-44.2) % Dickenson % (Auto) (2.6-8.5) % Eos % (Auto) (0-4.4) % Baso % (Auto) (0.2-1.2) % Lymph # (Auto) (0.9-3.2) K/mm3 [place] # (Auto) (0.1-0.6) K/mm3 Eos # (Auto) (0-0.3) K/mm3 Baso # (Auto) (0.0-0.1) K/mm3 Abs Immat Gran (auto) (0.00-0.031) K/mm3 Absolute Neuts (auto) (1.3-6.7) K/mm3 Absolute Nucleated RBC (0.0-0.012) K/mm3 Nucleated RBC % (0.0-0.2) % PT (11.1-14.7) Seconds INR APTT (22.3-36.8) Seconds Sodium (137-145) mmol/L Potassium (3.4-5.0) mmol/L Chloride (98-107) mmol/L Carbon Dioxide (22-30) mmol/L Anion Gap (4-12) mmol/L BUN Cancelled (7-17) mg/dL Creatinine 0.60 L Cancelled (0.7-1.0) mg/dL Estim Creat Clear Calc Not Reportable Cancelled Estimated GFR > 60 (59 - ) Glucose (65-110) mg/dL Calcium (8.4-10.2) mg/dL Total Bilirubin (0.2-1.3) mg/dL AST (14-36) U/L ALT (6-35) U/L Alkaline Phosphatase (38-126) U/L Troponin I (0.000-0.034) ng/mL NT-Pro-B Natriuret Pep (19.9-100) pg/mL Total Protein (6.3-8.2) g/dL Albumin (3.5-5.1) g/dL Urine Color (Yellow) Urine Appearance (Clear) Urine pH (5.0-9.0) Ur Specific [place] (1.001-1.035) Urine Protein (Negative) mg/dL Urine Glucose (UA) (Negative) mg/dL Urine Ketones (Negative) mg/dL Ur Blood (Man) (Negative) Urine Nitrate (Negative) Urine Bilirubin (Negative) Urine Urobilinogen (<2.0) mg/dL Leukocyte Esterase Rfl (Negative) ZULLY/UL 04/16/24 04/16/24 04/16/24 Range/Units 15:32 15:32 15:32 WBC (4.5-10.0) K/mm3 RBC (4.2-5.4) M/mm3 Hgb (12.0-15.0) g/dL Hct (37.0-47.0) % MCV (80-100) fl MCH (26-34) pg MCHC (32-36) g/dl RDW (11.5-14.5) % Plt Count (150-375) k/mm3 MPV (7.4-10.4) fl Immature Gran % (Auto) (0-0.5) % Neut % (Auto) (45.5-73.1) % Lymph % (Auto) (18.3-44.2) % Dickenson % (Auto) (2.6-8.5) % Eos % (Auto) (0-4.4) % Baso % (Auto) (0.2-1.2) % Lymph # (Auto) (0.9-3.2) K/mm3 [place] # (Auto) (0.1-0.6) K/mm3 Eos # (Auto) (0-0.3) K/mm3 Baso # (Auto) (0.0-0.1) K/mm3 Abs Immat Gran (auto) (0.00-0.031) K/mm3 Absolute Neuts (auto) (1.3-6.7) K/mm3 Absolute Nucleated RBC (0.0-0.012) K/mm3 Nucleated RBC % (0.0-0.2) % PT (11.1-14.7) Seconds INR APTT (22.3-36.8) Seconds Sodium (137-145) mmol/L Potassium (3.4-5.0) mmol/L Chloride (98-107) mmol/L Carbon Dioxide (22-30) mmol/L Anion Gap (4-12) mmol/L BUN (7-17) mg/dL Creatinine (0.7-1.0) mg/dL Estim Creat Clear Calc Estimated GFR Cancelled (59 - ) Glucose 80 Cancelled (65-110) mg/dL Calcium 9.1 Cancelled (8.4-10.2) mg/dL Total Bilirubin 0.7 (0.2-1.3) mg/dL AST (14-36) U/L ALT (6-35) U/L Alkaline Phosphatase (38-126) U/L Troponin I (0.000-0.034) ng/mL NT-Pro-B Natriuret Pep (19.9-100) pg/mL Total Protein (6.3-8.2) g/dL Albumin (3.5-5.1) g/dL Urine Color (Yellow) Urine Appearance (Clear) Urine pH (5.0-9.0) Ur Specific [place] (1.001-1.035) Urine Protein (Negative) mg/dL Urine Glucose (UA) (Negative) mg/dL Urine Ketones (Negative) mg/dL Ur Blood (Man) (Negative) Urine Nitrate (Negative) Urine Bilirubin (Negative) Urine Urobilinogen (<2.0) mg/dL Leukocyte Esterase Rfl (Negative) ZULLY/UL 04/16/24 04/16/24 04/16/24 Range/Units 15:32 15:32 15:32 WBC (4.5-10.0) K/mm3 RBC (4.2-5.4) M/mm3 Hgb (12.0-15.0) g/dL Hct (37.0-47.0) % MCV (80-100) fl MCH (26-34) pg MCHC (32-36) g/dl RDW (11.5-14.5) % Plt Count (150-375) k/mm3 MPV (7.4-10.4) fl Immature Gran % (Auto) (0-0.5) % Neut % (Auto) (45.5-73.1) % Lymph % (Auto) (18.3-44.2) % [place]enson % (Auto) (2.6-8.5) % Eos % (Auto) (0-4.4) % Baso % (Auto) (0.2-1.2) % Lymph # (Auto) (0.9-3.2) K/mm3 [place] # (Auto) (0.1-0.6) K/mm3 Eos # (Auto) (0-0.3) K/mm3 Baso # (Auto) (0.0-0.1) K/mm3 Abs Immat Gran (auto) (0.00-0.031) K/mm3 Absolute Neuts (auto) (1.3-6.7) K/mm3 Absolute Nucleated RBC (0.0-0.012) K/mm3 Nucleated RBC % (0.0-0.2) % PT (11.1-14.7) Seconds INR APTT (22.3-36.8) Seconds Sodium (137-145) mmol/L Potassium (3.4-5.0) mmol/L Chloride (98-107) mmol/L Carbon Dioxide (22-30) mmol/L Anion Gap (4-12) mmol/L BUN (7-17) mg/dL Creatinine (0.7-1.0) mg/dL Estim Creat Clear Calc Estimated GFR (59 - ) Glucose (65-110) mg/dL Calcium (8.4-10.2) mg/dL Total Bilirubin Cancelled (0.2-1.3) mg/dL AST 37 H Cancelled (14-36) U/L ALT 25 Cancelled (6-35) U/L Alkaline Phosphatase 103 (38-126) U/L Troponin I (0.000-0.034) ng/mL NT-Pro-B Natriuret Pep (19.9-100) pg/mL Total Protein (6.3-8.2) g/dL Albumin (3.5-5.1) g/dL Urine Color (Yellow) Urine Appearance (Clear) Urine pH (5.0-9.0) Ur Specific [place] (1.001-1.035) Urine Protein (Negative) mg/dL Urine Glucose (UA) (Negative) mg/dL Urine Ketones (Negative) mg/dL Ur Blood (Man) (Negative) Urine Nitrate (Negative) Urine Bilirubin (Negative) Urine Urobilinogen (<2.0) mg/dL Leukocyte Esterase Rfl (Negative) ZULLY/UL 04/16/24 04/16/24 04/16/24 Range/Units 15:32 15:32 15:32 WBC (4.5-10.0) K/mm3 RBC (4.2-5.4) M/mm3 Hgb (12.0-15.0) g/dL Hct (37.0-47.0) % MCV (80-100) fl MCH (26-34) pg MCHC (32-36) g/dl RDW (11.5-14.5) % Plt Count (150-375) k/mm3 MPV (7.4-10.4) fl Immature Gran % (Auto) (0-0.5) % Neut % (Auto) (45.5-73.1) % Lymph % (Auto) (18.3-44.2) % Dickenson % (Auto) (2.6-8.5) % Eos % (Auto) (0-4.4) % Baso % (Auto) (0.2-1.2) % Lymph # (Auto) (0.9-3.2) K/mm3 [place] # (Auto) (0.1-0.6) K/mm3 Eos # (Auto) (0-0.3) K/mm3 Baso # (Auto) (0.0-0.1) K/mm3 Abs Immat Gran (auto) (0.00-0.031) K/mm3 Absolute Neuts (auto) (1.3-6.7) K/mm3 Absolute Nucleated RBC (0.0-0.012) K/mm3 Nucleated RBC % (0.0-0.2) % PT (11.1-14.7) Seconds INR APTT (22.3-36.8) Seconds Sodium (137-145) mmol/L Potassium (3.4-5.0) mmol/L Chloride (98-107) mmol/L Carbon Dioxide (22-30) mmol/L Anion Gap (4-12) mmol/L BUN (7-17) mg/dL Creatinine (0.7-1.0) mg/dL Estim Creat Clear Calc Estimated GFR (59 - ) Glucose (65-110) mg/dL Calcium (8.4-10.2) mg/dL Total Bilirubin (0.2-1.3) mg/dL AST (14-36) U/L ALT (6-35) U/L Alkaline Phosphatase Cancelled (38-126) U/L Troponin I 0.042 H* (0.000-0.034) ng/mL NT-Pro-B Natriuret Pep 1890 H Cancelled (19.9-100) pg/mL Total Protein 6.0 L Cancelled (6.3-8.2) g/dL Albumin 3.7 (3.5-5.1) g/dL Urine Color (Yellow) Urine Appearance (Clear) Urine pH (5.0-9.0) Ur Specific [place] (1.001-1.035) Urine Protein (Negative) mg/dL Urine Glucose (UA) (Negative) mg/dL Urine Ketones (Negative) mg/dL Ur Blood (Man) (Negative) Urine Nitrate (Negative) Urine Bilirubin (Negative) Urine Urobilinogen (<2.0) mg/dL Leukocyte Esterase Rfl (Negative) ZULLY/UL 04/16/24 04/16/24 04/16/24 Range/Units 15:32 21:59 22:27 WBC (4.5-10.0) K/mm3 RBC (4.2-5.4) M/mm3 Hgb (12.0-15.0) g/dL Hct (37.0-47.0) % MCV (80-100) fl MCH (26-34) pg MCHC (32-36) g/dl RDW (11.5-14.5) % Plt Count (150-375) k/mm3 MPV (7.4-10.4) fl Immature Gran % (Auto) (0-0.5) % Neut % (Auto) (45.5-73.1) % Lymph % (Auto) (18.3-44.2) % Dickenson % (Auto) (2.6-8.5) % Eos % (Auto) (0-4.4) % Baso % (Auto) (0.2-1.2) % Lymph # (Auto) (0.9-3.2) K/mm3 [place] # (Auto) (0.1-0.6) K/mm3 Eos # (Auto) (0-0.3) K/mm3 Baso # (Auto) (0.0-0.1) K/mm3 Abs Immat Gran (auto) (0.00-0.031) K/mm3 Absolute Neuts (auto) (1.3-6.7) K/mm3 Absolute Nucleated RBC (0.0-0.012) K/mm3 Nucleated RBC % (0.0-0.2) % PT (11.1-14.7) Seconds INR APTT (22.3-36.8) Seconds Sodium (137-145) mmol/L Potassium (3.4-5.0) mmol/L Chloride (98-107) mmol/L Carbon Dioxide (22-30) mmol/L Anion Gap (4-12) mmol/L BUN (7-17) mg/dL Creatinine (0.7-1.0) mg/dL Estim Creat Clear Calc Estimated GFR (59 - ) Glucose (65-110) mg/dL Calcium (8.4-10.2) mg/dL Total Bilirubin (0.2-1.3) mg/dL AST (14-36) U/L ALT (6-35) U/L Alkaline Phosphatase (38-126) U/L Troponin I 0.036 H* (0.000-0.034) ng/mL NT-Pro-B Natriuret Pep (19.9-100) pg/mL Total Protein (6.3-8.2) g/dL Albumin Cancelled (3.5-5.1) g/dL Urine Color Yellow (Yellow) Urine Appearance Clear (Clear) Urine pH 5.0 (5.0-9.0) Ur Specific [place] 1.008 (1.001-1.035) Urine Protein Negative (Negative) mg/dL Urine Glucose (UA) Negative (Negative) mg/dL Urine Ketones Trace H (Negative) mg/dL Ur Blood (Man) Negative (Negative) Urine Nitrate Negative (Negative) Urine Bilirubin Negative (Negative) Urine Urobilinogen 0.2 (<2.0) mg/dL Leukocyte Esterase Rfl Negative (Negative) ZULLY/UL <Kadeem Syed PA-C - Last Filed: 04/16/24 23:23> ECG Data EKG #1: ECG completion date: 04/16/24 <Kadeem Syed PA-C - Last Filed: 04/16/24 23:23> ECG completion time: 14:55 <Kadeem Syed PA-C - Last Filed: 04/16/24 23:23> Prior ECG tracings: not available for review <Kadeem Syed PA-C - Last Filed: 04/16/24 23:23> Interpretation: Sinus rhythm Rate 86 Normal QRS No acute ischemic findings <DEBRA Franco Last Filed: 04/16/24 23:23> Discharge Plan Discharge Clinical Impression: CHF exacerbation, Anterior dislocation of right shoulder <DEBRA Cui Last Filed: 04/16/24 14:49> Patient Disposition: Still a Patient <DEBRA Cui Last Filed: 04/16/24 14:49> Condition: Stable <DEBRA Cui Last Filed: 04/16/24 14:49> Instructions: Antibiotic Form <DEBRA Cui Last Filed: 04/16/24 14:49> Patient Language: Wolof <DEBRA Cui Last Filed: 04/16/24 14:49> Prescriptions: No Action solifenacin [Vesicare] 10 mg tablet 10 mg PO DAILY Qty: 30 6RF multivitamin [Daily-Holly] Tablet 1 tablet PO DAILY lisinopril 40 mg tablet 40 mg PO DAILY Qty: 90 0RF hydralazine 25 mg tablet 25 mg PO TID lidocaine 5 % Adhesive Patch,Medicated 1 patch TOPICAL DAILY Rx Instructions: leave on most painful area for up to 12 hrs -Right knee multivitamin with folic acid [Tab-A-Holly] 400 mcg tablet 1 tablet PO DAILY sodium chloride 1,000 mg tablet,soluble 1,000 mg PO DAILY aspirin 81 mg Tablet,Delayed Release (Dr/Ec) 81 mg PO DAILY docusate sodium 100 mg Capsule 100 mg PO Q12HR Qty: 60 0RF acetaminophen 325 mg Tablet 975 mg PO TID Qty: 30 0RF carvedilol [Coreg] 3.125 mg Tablet 12.5 mg PO QAM 30 Days Qty: 60 0RF <DEBRA Cui Last Filed: 04/16/24 14:49> Follow-up/Referrals: Steve Gomez DO [Primary Care Provider] - <DEBRA Cui Last Filed: 04/16/24 14:49>
[2024-04-16 15:38] LABS: Basophils Percent Auto 0.7 % (0.2-1.2); Hematocrit 30.5 % (37.0-47.0); Hemoglobin 9.7 g/dL (12.0-15.0); Lymphocytes Absolute Auto 0.67 K/mm3 (0.9-3.2); Lymphocytes Percent Auto 16.3 % (18.3-44.2); Mean Corpuscular HGB Conc 31.8 g/dl (32-36); Mean Corpuscular Hemoglobin 30.9 pg (26-34); Mean Corpuscular Volume 97.1 fl (80-100); Mean Platelet Volume 8.3 fl (7.4-10.4); Monocytes Absolute Auto 0.8 K/mm3 (0.1-0.6); Monocytes Percent Auto 19.2 % (2.6-8.5); Neutrophils Absolute Auto 2.6 K/mm3 (1.3-6.7); Neutrophils Percent Auto 62.8 % (45.5-73.1); Platelet Count Result 195 k/mm3 (150-375); Red Blood Count 3.14 M/mm3 (4.2-5.4); Red Cell Distribution Width 16.9 % (11.5-14.5); White Blood Count 4.1 K/mm3 (4.5-10.0)
[2024-04-16 15:47] LABS: Alanine Aminotransferase 25 U/L (6-35); Albumin Level 3.7 g/dL (3.5-5.1); Alkaline Phosphatase 103 U/L (38-126); Anion Gap 1 mmol/L (4-12); Aspartate Amino Transferase 37 U/L (14-36); Bilirubin,Total 0.7 mg/dL (0.2-1.3); Blood Urea Nitrogen 22 mg/dL (7-17); Calcium 9.1 mg/dL (8.4-10.2); Carbon Dioxide 29 mmol/L (22-30); Chloride 100 mmol/L (98-107); Estimated Glomerular Filt Rate > 60; Glucose 80 mg/dL (65-110); Potassium 4.8 mmol/L (3.4-5.0); Sodium 130 mmol/L (137-145)
[2024-04-16 15:50] LABS: INR 1.1; Prothrombin Time 14.6 Seconds (11.1-14.7)
[2024-04-16 15:51] LABS: Partial Thromboplastin Time 55.8 Seconds (22.3-36.8)
[2024-04-16 16:06] LABS: NT Pro B Type Natriuretic Pept 1890 pg/mL (19.9-100); Troponin I 0.042 ng/mL (0.000-0.034)
[2024-04-16 19:15] VITALS: O2SAT 100
[2024-04-16] MEDS: FUROSEMIDE INJ 40 MG/4 ML VIAL IV PUSH (19:23)
[2024-04-16 19:27] VITALS: O2SAT 97
[2024-04-16 20:09] VITALS: BP 192/85; PULSE 72; RESP 17; O2SAT 100
[2024-04-16 21:23] VITALS: PULSE 82; RESP 19; O2SAT 100
[2024-04-16 22:05] LABS: Add Urine Microscopic? NO; Appearance Urine Clear (Clear); Bilirubin Urine Negative (Negative); Blood Urine Negative (Negative); Color Urine Yellow (Yellow); Glucose Urine UA Negative (Negative); Ketones Urine Trace mg/dL (Negative); Leukocyte Esterase Ur Negative LEU/UL (Negative); Nitrate Urine Negative (Negative); Protein Urine Negative (Negative); Specific Grav Ur 1.008 (1.001-1.035); Urobilinogen Urine 0.2 mg/dL (<2.0)
--- NOTE | 2024-04-16 22:30 | ECG_ITS ---
Test Date: 2024-04-16 22:34:35 Measurements Intervals [place] Rate: 81 P: 3 WI: 128 QRS: 14 QRSD: 97 T: 31 QT: 391 QTc: 456 Interpretive Statements SINUS RHYTHM Compared to ECG 04/16/2024 14:55:45 No significant changes Electronically Signed On 04-16-2024 22:35:31 SAL[facility]AGE DIVER by Guru Mejia M.D.
[2024-04-16 23:02] VITALS: BP 142/90; PULSE 82; RESP 16; O2SAT 100
[2024-04-16 23:08] LABS: Troponin I 0.036 ng/mL (0.000-0.034)
--- NOTE | 2024-04-16 23:54 | P.HP_ITS ---
H&P: HPI History of Present Illness Date/Time: 04/16/24 21:00 Chief Complaint: Lower extremity swelling and right shoulder pain. Narrative: This is a pleasant 88-year-old female with history of cerebrovascular accident, hypertension, hyperlipidemia, chronic hyponatremia, overactive bladder, anemia, and osteoarthritis who presented to the emergency department via EMS from [facility] for evaluation of lower extremity swelling and right shoulder pain. The patient provides the following history. She spends majority of her time in a wheelchair and is not necessarily unusual for her to have some swelling in her legs however they have become markedly swollen with weeping over the course of several days if not a bit longer. She also complains of vague right shoulder pain without reports of fall or trauma. She declined to take her medications this morning as she was coming to the hospital but states that she is usually compliant with them. She denies syncope, near syncope, fever, chills, sweats, cold and flu symptoms, chest pain, pleuritic pain, palpitations, orthopnea, paroxysmal nocturnal dyspnea, nausea, vomiting, diarrhea, dysuria, and calf pain. In the ED: She was afebrile on arrival with stable vital signs. Labs were significant for WBC count of 4.1, hemoglobin 9.7, sodium 130, BUN 22, creatinine 0.60, AST 37, proBNP 1890, troponin 0.042. Right shoulder x-ray showed right shoulder dislocation and post reduction and continue to show a persistent anteromedial dislocation of the right humeral head. It is unclear whether not this is a chronic finding and orthopedic surgeon on-call was consulted. Chest x- ray showed subsegmental bibasilar atelectasis/consolidation small bilateral pleural effusions. She was given furosemide 40 mg IV and is being admitted in [facility] setting for further treatment and evaluation. Of note the patient states that she has no known history of congestive heart failure or coronary disease. 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 Review of Systems Review of Systems: 12 systems were reviewed and are negativ e except for as per HPI. 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 Chronic anemia Hard of hearing Hyperlipidemia Chronic hyponatremia Overactive bladder Hypertension Ischemic stroke Surgical History Surgical History History of arthroplasty of right knee History of renal stent History of permanent cardiac pacemaker placement Family History Family History Mother CAD (coronary artery disease) Father Acute myocardial infarction Sibling No problems noted. Social History Social History Social History: Surrogate medical decision maker: Aura Perez, daughter. Code status: Do not resuscitate. Smoking status: Never smoker Second hand tobacco smoke exposure: No Alcohol intake: never Substance use: never Substance use type: does not use Do You Feel Safe in your Home?: Yes Lack of Transportation: No Lack of Food: Never True Current Housing: I Have Housing Concerned About Future Housing: No Difficulty Paying Gas/Electric Bills: No Difficulty Paying for Meds: No Currently Unemployed: No Education: High School Diploma/GED Difficulty w/ Childcare or Family Care: No Living arrangements: assisted living Additional living arrangements comments: . Lives in assisted living at [facility]. Currently at [facility] for rehab. Occupation/Education: retired Additional occupation/education comments: Retired from working at a bank. Spiritual care concerns: No Meds Home Medications and Allergies Home Medications ?Medication ?Instructions ?Recorded ?Confirmed ?Type aspirin 81 mg tablet,delayed 81 mg PO DAILY 10/13/21 03/13/24 History release docusate sodium 100 mg capsule 100 mg PO Q12HR #60 caps 10/18/21 03/13/24 Rx lisinopril 40 mg tablet 40 mg PO DAILY #90 tabs 05/03/23 03/13/24 Rx multivitamin (Daily-Holly tablet) 1 tablet PO DAILY 05/03/23 03/13/24 History multivitamin with folic acid 400 1 tablet PO DAILY 11/14/23 03/13/24 History mcg tablet (Tab-A-Holly) sodium chloride 1,000 mg soluble 1,000 mg PO DAILY 11/14/23 03/13/24 History tablet acetaminophen 325 mg tablet 975 mg (3 x 325 mg) PO TID #30 tabs 11/29/23 03/13/24 Rx carvedilol 3.125 mg tablet (Coreg) 12.5 mg (4 x 3.125 mg) PO QAM 30 11/29/23 03/13/24 Rx days #60 tabs hydralazine 25 mg tablet 25 mg PO TID 12/11/23 03/13/24 History lidocaine 5 % topical patch 1 patch topical DAILY 01/23/24 03/13/24 History solifenacin 10 mg tablet (Vesicare) 10 mg PO DAILY #30 tabs 03/13/24 03/13/24 Rx Allergies Allergy/AdvReac Type Severity Reaction Status Date / Time atorvastatin Allergy Unknown Other Verified 04/16/24 12:14 clonidine Allergy Unknown Unknown Verified 04/16/24 12:14 evolocumab (From Repatha Allergy Unknown Unknown Verified 04/16/24 12:14 SureClick) metoprolol Allergy Unknown Unknown Verified 04/16/24 12:14 nifedipine Allergy Unknown Unknown Verified 04/16/24 12:14 tramadol Allergy Unknown Unknown Verified 04/16/24 12:14 amlodipine AdvReac Anaphylaxis Verified 04/16/24 12:14 losartan AdvReac Anaphylaxis Verified 04/16/24 12:14 Vital Signs Vital Signs - 24 hr 04/16/24 12:14 04/16/24 19:15 04/16/24 19:27 Temperature 97.7 F Pulse Rate 63 Respiratory Rate 16 Blood Pressure 136/62 Pulse Oximetry 100 100 97 Oxygen Delivery Nasal Cannula Oxygen Flow Rate 2 04/16/24 20:09 04/16/24 21:23 04/16/24 23:02 Temperature Pulse Rate 72 82 82 Respiratory Rate 17 19 16 Blood Pressure 192/85 H 142/90 H Pulse Oximetry 100 100 100 Oxygen Delivery Oxygen Flow Rate Exam Narrative: General: Nontoxic-appearing elderly female in the semi-Kunz position in bed. Weight: 79.1 kg. BMI: 30.9. HEENT: Hard of hearing. PERRL, EOMI. Sclera anicteric. Moist mucous membranes. Neck: Supple. Exam limited due to neck circumference but no obvious JVD. Respiratory: Respirations are nonlabored she is speaking full sentences. She is currently on 2 L nasal cannula with an SpO2 of 100%. Lung sounds are a bit diminished at the bases with fine crackles. Cardiovascular: Regular rate and rhythm with S1-S2. Murmur at the left upper sternal border. Gastrointestinal: Abdomen is soft, nontender, and nondistended with positive bowel sounds. Skin: Warm and dry. Generalized pallor. Extremities: No cyanosis or clubbing. She has 3 to 4+ bilateral lower extremity pitting edema, right greater than left. There is weeping of the legs, again worse on the right. Neurological: Alert. Cranial nerves 2-12 are grossly intact. No gross focal deficits to casual conversation. Psychiatric: Pleasant and cooperative with appropriate mood and affect. H&P: Results Labs Labs: Short CBC 04/16/24 Range/Units 15:32 WBC 4.1 L (4.5-10.0) K/mm3 Hgb 9.7 L (12.0-15.0) g/dL Hct 30.5 L (37.0-47.0) % Plt Count 195 (150-375) k/mm3 BMP 04/16/24 04/16/24 04/16/24 15:32 15:32 15:32 Sodium 130 L Cancelled Potassium 4.8 Cancelled Chloride 100 Carbon Dioxide BUN Creatinine Glucose Calcium 04/16/24 04/16/24 04/16/24 15:32 15:32 15:32 Sodium Potassium Chloride Cancelled Carbon Dioxide 29 Cancelled BUN 22 H Cancelled Creatinine 0.60 L Glucose Calcium 04/16/24 04/16/24 04/16/24 15:32 15:32 15:32 Sodium Potassium Chloride Carbon Dioxide BUN Creatinine Cancelled Glucose 80 Cancelled Calcium 9.1 Cancelled Cardiac Enzymes 04/16/24 04/16/24 Range/Units 15:32 22:27 Troponin I 0.042 H* 0.036 H* (0.000-0.034) ng/mL Liver Function 04/16/24 04/16/24 04/16/24 Range/Units 15:32 15:32 15:32 Total Bilirubin 0.7 Cancelled (0.2-1.3) mg/dL AST 37 H Cancelled (14-36) U/L ALT 25 (6-35) U/L Alkaline Phosphatase (38-126) U/L Albumin (3.5-5.1) g/dL 04/16/24 04/16/24 04/16/24 Range/Units 15:32 15:32 15:32 Total Bilirubin (0.2-1.3) mg/dL AST (14-36) U/L ALT Cancelled (6-35) U/L Alkaline Phosphatase 103 Cancelled (38-126) U/L Albumin 3.7 Cancelled (3.5-5.1) g/dL Urine 04/16/24 Range/Units 21:59 Urine Color Yellow (Yellow) Urine Appearance Clear (Clear) Urine pH 5.0 (5.0-9.0) Ur Specific [place] 1.008 (1.001-1.035) Urine Protein Negative (Negative) mg/dL Urine Glucose (UA) Negative (Negative) mg/dL Impressions Chest X-Ray 04/16/24 15:43 IMPRESSION: Subsegmental bibasilar atelectasis/consolidation. Small bilateral pleural effusions. Right shoulder dislocation. Shoulder X-Ray 04/16/24 15:44 IMPRESSION: Right shoulder dislocation. Ossific densities project over the osseous outlet in the axillary view, probably representing degenerative changes, but may represent fracture fragments. No definite donor site identified. Recommend attention and follow-up post reduction studies. Assessment and Plan Assessment and plan (1) Suspected congestive heart failure: Code(s): R09.89 - Other specified symptoms and signs involving the circulatory and respiratory systems Status: Acute (2) Anterior dislocation of right shoulder: Code(s): S43.014A - Anterior dislocation of right humerus, initial encounter Status: Acute (3) Chronic hyponatremia: Code(s): E87.1 - Hypo-osmolality and hyponatremia Status: Chronic (4) Chronic anemia: Code(s): D64.9 - Anemia, unspecified Status: Acute (5) Hypertension: Code(s): I10 - Essential (primary) hypertension Status: Acute Plan The patient presented to the emergency department for evaluation of right shoulder pain lower extremity edema as detailed in HPI. Labs, imaging, EKG, and all reports were personally reviewed. Clinical condition is consistent with congestive heart failure with an elevated proBNP, pleural effusions on imaging, and lower extremity edema. She will be judiciously diuresed with close monitoring of volume status, renal function, and electrolytes. Initial troponin was elevated but it has remained flat likely this is elevated in the setting of CHF as she has no complaints of chest pain and EKG does not demonstrate any acute ST segment changes. Echocardiogram ordered. ApneaLink has also been ordered. She has chronic hyponatremia which is stable and may even improve with diuresis. Anemia stable on review of previous labs. Right shoulder is currently immobilized. Dr. Bullard was consulted by the ED provider his input is appreciated. Blood pressures were reviewed and they are reasonable. Her home medications will be reviewed and resumed as appropriate. Findings and treatment plan were discussed with the patient. Questions were solicited and answered to satisfaction. The patient's medical management will be taken over by the hospitalist team in a.m. Quality VTE Prophylaxis VTE prophylaxis: pharmacologic ordered The patient has been admitted under observation status. Hospitalist MIPS Advance Care Plan I have confirmed that the patient's Advanced Care Plan is present, code status is documented, or surrogate decision maker is listed in patient medical record.: Yes Medication Reconciliation I have utilized all available resources to obtain, update and review the patients current medications (includes all prescriptions, OTC, herbals, cannabis, and nutritional supplements).: Yes
[2024-04-17] VITALS (24 sets, daily range): BP systolic 146–178; BP diastolic 52–97; PULSE 63–84; RESP 12–20; TEMP 36.2–37.2; O2SAT 95–100; BMI 30.9
--- NOTE | 2024-04-17 02:04 | ADMGEN ---
This patient, Christi Perez, was admitted to IMU Room 200-01. Patient/family oriented to hospital policies and general routines including ID bracelet, bed and alarms, visiting hours, pain management, procedures, bathroom and other care routines, personal items, smoking policy, room service/diet, and visiting hours. Information on how to activate the Rapid Response Team has been discussed. Patient/Family are encouraged to report perceived risks to care and to ask questions if they do not understand what they are told or what they should do.
--- NOTE | 2024-04-17 02:36 | ECHO_ITS ---
Patient Info Name: Christi Perez Age: 88 years : 1935 Gender: Female Ht: 63 in Wt: 174 lbs BSA: 1.90 m2 HR: 78 bpm BP: 156 / 86 mmHg Technical Quality: Good Exam Date: 04/17/2024 4:05 PM Exam Location: Echo Lab Exam Room: [facility] Patient Status: Inpatient Admit Date: 04/17/2024 Staff Ordering Physician: Constance Salgado PA-C Geological Technical Officer: Tracie Miller RDCS Attending Provider: Dao Lee MD Referring Physician: Damian BATES; Exam Type: CA echo doppler color flow Study Info Complete two-dimensional, color flow and Doppler transthoracic echocardiogram is performed. Summary 1. Complete two-dimensional, color flow and Doppler transthoracic echocardiogram is performed. 2. Dilated inferior vena cava with >50% collapse upon inspiration consistent with elevated right atrial pressure, 8 mmHg. 3. Left ventricular chamber dimension is normal. 4. Left ventricular systolic function is normal, estimated at 60-65%. 5. There is mildly increased left ventricular wall thickness. 6. Left ventricular septal wall motion is normal. 7. The left ventricular diastolic function is grade II diastolic dysfunction. 8. Right ventricular chamber dimension is enlarged. 9. Right ventricular systolic function is normal. 10. Left atrial chamber dimension is enlarged. Left Ventricle Left ventricular chamber dimension is normal. Left ventricular systolic function is normal, estimated at 60-65%. There is mildly increased left ventricular wall thickness. Left ventricular septal wall motion is normal. The left ventricular diastolic function is grade II diastolic dysfunction. Right Ventricle Right ventricular chamber dimension is enlarged. Right ventricular systolic function is normal. Left Atria Left atrial chamber dimension is enlarged. Right Atria Right atrial chamber dimension is normal. Aortic Valve The aortic valve is trileaflet. There is mild aortic valve sclerosis. There is no aortic valve stenosis. There is no aortic valve regurgitation. Pulmonic Valve The pulmonic valve is normal. There is no pulmonic valve stenosis. There is no pulmonic regurgitation. Mitral Valve The mitral valve has normal leaflets. There is no mitral valve stenosis. There is mild mitral valve regurgitation. Tricuspid Valve The tricuspid valve leaflets are normal. There is no significant tricuspid valve stenosis. There is no tricuspid valve regurgitation. PASP cannot be measure as insufficient TR jet. Pericardium/Pleural The pericardium appears normal. There is no pericardial effusion. Inferior Vena Cava Dilated inferior vena cava with >50% collapse upon inspiration consistent with elevated right atrial pressure, 8 mmHg. Aorta The aortic root size at the sinus of Valsalva is normal. The prox ascending aorta size is normal. Left Ventricular Outflow Tract Name Value Normal LVOT 2D LVOT Diameter 2.1 cm LVOT Doppler LVOT Peak Gradient 3 mmHg LVOT Mean Gradient 1 mmHg LVOT VTI 22 cm LVOT VTI/AV VTI Ratio 0.4 LVOT Stroke Volume 80 ml LVOT CO 4.9 l/min LVOT CI 2.6 l/min/m2 Pulmonic Valve Name Value Normal PV Doppler PV Peak Gradient 3 mmHg Mitral Valve Name Value Normal MV Doppler MV Peak Gradient 7 mmHg MV Mean Gradient 3 mmHg MV Decel Anson 442 cm/s2 MV PHT 74 ms MV Area (PHT) 3.0 cm2 4.0-5.0 MV Area (Cont Eq VTI) 1.9 cm2 MV Regurgitation Doppler MR Peak Gradient 94 mmHg MV Diastolic Function MV E Peak Velocity 113 cm/s MV A Peak Velocity 97 cm/s MV E/A 1.2 MV Decel Time 256 ms MV Annular TDI MV E/e' (Septal) 22.2 <=8.0 MV E/e' (Lateral) 20.1 <=8.0 MV E/e' (Average) 21.2 Tricuspid Valve Name Value Normal Estimated PAP/RSVP RA Pressure 8 mmHg <=5 Aorta Name Value Normal Ascending Aorta Ao Root Diameter (MM) 2.8 cm Ao Root Diam Index (MM) 1.5 cm/m2 Aortic Valve Name Value Normal AV Doppler AV Peak Velocity 197 cm/s AV Peak Gradient 16 mmHg AV Mean Gradient 8 mmHg AV VTI 56 cm AV Area (Cont Eq VTI) 1.4 cm2 >=3.0 AV Area (Cont Eq Jayjay) 1.5 cm2 AV Regurgitation 2D LVOT Area 3.6 cm2 Ventricles Name Value Normal LV Dimensions 2D/MM IVS Diastolic Thickness (2D) 1.0 cm 0.6-1.0 LVID Diastole (2D) 4.3 cm 3.8-5.2 LVIW Diastolic Thickness (2D) 1.1 cm 0.6-0.9 LVID Systole (2D) 3.0 cm 2.2-3.5 LVOT Diameter 2.1 cm LV Mass (2D Cubed) 154.57 g 67.00-162.00 LV Mass Index (2D Cubed) 81 g/m2 43-95 Relative Wall Thickness (2D) 0.51 LV Fractional Shortening/Ejection Fraction 2D/MM LV Fractional Shortening (2D) 30 % 27-45 LV EF (2D [place]) 57 % 54-74 LV Diastolic Volume (4C MOD) 118 ml LV EF (4C MOD) 45 % LV Diastolic Length (4C) 7.7 cm LV Systolic Length (4C) 7.3 cm LV Stroke Volume (4C MOD) 57 ml Atria Name Value Normal LA Dimensions LA Dimension (MM) 5.4 cm 2.7-3.8 LA Volume (4C A-L) 92 ml RA Dimensions RA Area (4C) 17.8 cm2 <=18.0 Report Signatures
[2024-04-17 05:18] LABS: Hemoglobin 9.1 g/dL (12.0-15.0); Mean Corpuscular HGB Conc 31.4 g/dl (32-36); Mean Corpuscular Hemoglobin 31.3 pg (26-34); Mean Corpuscular Volume 99.7 fl (80-100); Mean Platelet Volume 8.6 fl (7.4-10.4); Platelet Count Result 172 k/mm3 (150-375); Red Blood Count 2.91 M/mm3 (4.2-5.4); Red Cell Distribution Width 16.8 % (11.5-14.5); White Blood Count 3.1 K/mm3 (4.5-10.0)
[2024-04-17 05:32] LABS: Anion Gap -1 mmol/L (4-12); Blood Urea Nitrogen 20 mg/dL (7-17); Calcium 8.7 mg/dL (8.4-10.2); Carbon Dioxide 31 mmol/L (22-30); Chloride 100 mmol/L (98-107); Estimated CRCL calculation 48 ml/min; Estimated Glomerular Filt Rate > 60; Glucose 79 mg/dL (65-110); Magnesium 1.8 mg/dL (1.6-2.3); Potassium 4.4 mmol/L (3.4-5.0); Sodium 130 mmol/L (137-145)
[2024-04-17 06:00] LABS: Thyroid Stimulating Hormone Reflex 0.665 uIU/mL (0.465-4.68)
--- NOTE | 2024-04-17 07:13 | PM.CNOR ---
Assessment and Plan Assessment and plan (1) Anterior dislocation of right shoulder: Code(s): S43.014A - Anterior dislocation of right humerus, initial encounter Status: Acute Assessment and Plan: Patient has a dislocation of her right shoulder. She really does not the recall when this happened. It may be hip pain now for some time. She is not having too much pain. I think it be reasonable to make an attempt to see we can reduce it close. If not then I would probably leave it. I have discussed this with her risks benefits limitations and alternatives in detail. History of Present Illness HPI Consult date: 04/17/24 Chief complaint: CHF exacerbation Narrative: Patient presented with the congestive heart failure. She has a little bit of shoulder pain she has had for about a week now. He really is too painful for. She does recall any specific trauma. The patient is a poor historian. Review of Systems Review of Systems: 12 systems were reviewed and are negative except for as per HPI. 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 Chronic anemia Hard of hearing Hyperlipidemia Chronic hyponatremia Overactive bladder Hypertension Ischemic stroke Surgical History Surgical History History of arthroplasty of right knee History of renal stent History of permanent cardiac pacemaker placement Family History Family History Mother CAD (coronary artery disease) Father Acute myocardial infarction Sibling No problems noted. Social History Social History Social History: Surrogate medical decision maker: Aura Perez, daughter. Code status: Do not resuscitate. Smoking status: Never smoker Second hand tobacco smoke exposure: No Alcohol intake: never Substance use: never Substance use type: does not use Do You Feel Safe in your Home?: Yes Lack of Transportation: No Lack of Food: Never True Current Housing: I Have Housing Concerned About Future Housing: No Difficulty Paying Gas/Electric Bills: No Difficulty Paying for Meds: No Currently Unemployed: No Education: High School Diploma/GED Difficulty w/ Childcare or Family Care: No Living arrangements: assisted living Additional living arrangements comments: . Lives in assisted living at [facility]. Currently at [facility] for rehab. Occupation/Education: retired Additional occupation/education comments: Retired from working at a [employer]. Spiritual care concerns: No Meds Home Medications and Allergies Home Medications ?Medication ?Instructions ?Recorded ?Confirmed ?Type aspirin 81 mg tablet,delayed 81 mg PO DAILY 10/13/21 04/17/24 History release docusate sodium 100 mg capsule 100 mg PO Q12HR #60 caps 10/18/21 04/17/24 Rx lisinopril 40 mg tablet 40 mg PO DAILY #90 tabs 05/03/23 04/17/24 Rx multivitamin (Daily-Holly tablet) 1 tablet PO DAILY 05/03/23 04/17/24 History multivitamin with folic acid 400 1 tablet PO DAILY 11/14/23 04/17/24 History mcg tablet (Tab-A-Holly) sodium chloride 1,000 mg soluble 1,000 mg PO DAILY 11/14/23 04/17/24 History tablet acetaminophen 325 mg tablet 975 mg (3 x 325 mg) PO TID #30 tabs 11/29/23 04/17/24 Rx carvedilol 3.125 mg tablet (Coreg) 12.5 mg (4 x 3.125 mg) PO QAM 30 11/29/23 04/17/24 Rx days #60 tabs hydralazine 25 mg tablet 25 mg PO TID 12/11/23 04/17/24 History lidocaine 5 % topical patch 1 patch topical DAILY 01/23/24 04/17/24 History solifenacin 10 mg tablet (Vesicare) 10 mg PO DAILY #30 tabs 03/13/24 04/17/24 Rx camphor-menthol 0.2 %-3.5 % 1 applic topical BID 04/17/24 04/17/24 History topical gel Allergies Allergy/AdvReac Type Severity Reaction Status Date / Time atorvastatin Allergy Unknown Other Verified 04/16/24 12:14 clonidine Allergy Unknown Unknown Verified 04/16/24 12:14 evolocumab (From Repatha Allergy Unknown Unknown Verified 04/16/24 12:14 SureClick) metoprolol Allergy Unknown Unknown Verified 04/16/24 12:14 nifedipine Allergy Unknown Unknown Verified 04/16/24 12:14 tramadol Allergy Unknown Unknown Verified 04/16/24 12:14 amlodipine AdvReac Anaphylaxis Verified 04/16/24 12:14 losartan AdvReac Anaphylaxis Verified 04/16/24 12:14 Vital Signs Vital Signs - 24 hr 04/16/24 12:14 04/16/24 19:15 04/16/24 19:27 Temperature 97.7 F Pulse Rate 63 Respiratory Rate 16 Blood Pressure 136/62 Pulse Oximetry 100 100 97 Oxygen Delivery Nasal Cannula Oxygen Flow Rate 2 04/16/24 20:09 04/16/24 21:23 04/16/24 23:02 Temperature Pulse Rate 72 82 82 Respiratory Rate 17 19 16 Blood Pressure 192/85 H 142/90 H Pulse Oximetry 100 100 100 Oxygen Delivery Oxygen Flow Rate 04/17/24 01:54 04/17/24 02:00 04/17/24 02:15 Temperature 98.8 F Pulse Rate 84 78 84 Respiratory Rate 18 18 Blood Pressure 160/97 H Pulse Oximetry 100 100 Oxygen Delivery Nasal Cannula Oxygen Flow Rate 2 04/17/24 03:37 04/17/24 03:37 04/17/24 05:17 Temperature 98.8 F Pulse Rate 84 84 79 Respiratory Rate 18 18 Blood Pressure 150/82 H Pulse Oximetry 100 100 Oxygen Delivery Nasal Cannula Oxygen Flow Rate 2 04/17/24 05:50 Temperature Pulse Rate 68 Respiratory Rate Blood Pressure Pulse Oximetry Oxygen Delivery Oxygen Flow Rate Exam Narrative: Patient has pain with manipulation of her right shoulder. She wiggle her fingers. She has difficulty raising her arm. Results Labs 04/17/24 04:06 04/17/24 04:06 Labs: Abnormal lab results 04/16/24 04/16/24 04/16/24 Range/Units 15:32 21:59 22:27 WBC 4.1 L (4.5-10.0) K/mm3 RBC 3.14 L (4.2-5.4) M/mm3 Hgb 9.7 L (12.0-15.0) g/dL Hct 30.5 L (37.0-47.0) % MCHC 31.8 L (32-36) g/dl RDW 16.9 H (11.5-14.5) % Lymph % (Auto) 16.3 L (18.3-44.2) % Gregory % (Auto) 19.2 H (2.6-8.5) % Lymph # (Auto) 0.67 L (0.9-3.2) K/mm3 Gregory # (Auto) 0.8 H (0.1-0.6) K/mm3 APTT 55.8 H (22.3-36.8) Seconds Sodium 130 L (137-145) mmol/L Carbon Dioxide (22-30) mmol/L Anion Gap 1 L (4-12) mmol/L BUN 22 H (7-17) mg/dL Creatinine 0.60 L (0.7-1.0) mg/dL AST 37 H (14-36) U/L Troponin I 0.042 H* 0.036 H* (0.000-0.034) ng/mL NT-Pro-B Natriuret Pep 1890 H (19.9-100) pg/mL Total Protein 6.0 L (6.3-8.2) g/dL Urine Ketones Trace H (Negative) mg/dL 04/17/24 Range/Units 04:06 WBC 3.1 L (4.5-10.0) K/mm3 RBC 2.91 L (4.2-5.4) M/mm3 Hgb 9.1 L (12.0-15.0) g/dL Hct 29.0 L (37.0-47.0) % MCHC 31.4 L (32-36) g/dl RDW 16.8 H (11.5-14.5) % Lymph % (Auto) (18.3-44.2) % Gregory % (Auto) (2.6-8.5) % Lymph # (Auto) (0.9-3.2) K/mm3 Gregory # (Auto) (0.1-0.6) K/mm3 APTT (22.3-36.8) Seconds Sodium 130 L (137-145) mmol/L Carbon Dioxide 31 H (22-30) mmol/L Anion Gap -1 L (4-12) mmol/L BUN 20 H (7-17) mg/dL Creatinine (0.7-1.0) mg/dL AST (14-36) U/L Troponin I (0.000-0.034) ng/mL NT-Pro-B Natriuret Pep (19.9-100) pg/mL Total Protein (6.3-8.2) g/dL Urine Ketones (Negative) mg/dL H & H 04/16/24 04/17/24 Range/Units 15:32 04:06 Hgb 9.7 L 9.1 L (12.0-15.0) g/dL Hct 30.5 L 29.0 L (37.0-47.0) % Coagulation 04/16/24 Range/Units 15:32 INR 1.1 All other labs normal.
--- NOTE | 2024-04-17 08:14 | WPDHPUPDATE1 ---
History and Physical Update Update Date/Time: 04/17/24 08:14 History and Physical has been reviewed, including an updated exam of the patient. There are NO changes in the patient's condition. Risks, benefits, and alternatives have been discussed and questions answered. Patient agrees to proceed with procedure.
--- NOTE | 2024-04-17 09:35 | WPDANESEPPF ---
Anes - Initial Pre Proc Eval Procedure: Operation Date: 04/17/24 10:00 Proposed Procedures p Closed Reduction Any Ortho - Mario Alberto Bullard MD Date/Time: 04/17/24 09:35 Surgeon: Dao Lee MD Pre Op Diagnosis: CHF exacerbation Patient Data Age: 88 Gender: F Height: 1.6 m Weight: 79.2 kg Last Vital Signs Temp 98.9 F 04/17/24 08:00 Pulse 78 04/17/24 08:00 Resp 16 04/17/24 08:00 BP 158/86 H 04/17/24 08:00 Pulse Ox 100 04/17/24 08:00 O2 Del Method Nasal Cannula 04/17/24 03:37 O2 Flow Rate 2 04/17/24 03:37 Allergies Allergy/AdvReac Type Severity Reaction Status Date / Time atorvastatin Allergy Unknown Other Verified 04/16/24 12:14 clonidine Allergy Unknown Unknown Verified 04/16/24 12:14 evolocumab (From Repatha Allergy Unknown Unknown Verified 04/16/24 12:14 SureClick) metoprolol Allergy Unknown Unknown Verified 04/16/24 12:14 nifedipine Allergy Unknown Unknown Verified 04/16/24 12:14 tramadol Allergy Unknown Unknown Verified 04/16/24 12:14 amlodipine AdvReac Anaphylaxis Verified 04/16/24 12:14 losartan AdvReac Anaphylaxis Verified 04/16/24 12:14 Home Medications ?Medication ?Instructions ?Recorded ?Confirmed ?Type aspirin 81 mg tablet,delayed 81 mg PO DAILY 10/13/21 04/17/24 History release docusate sodium 100 mg capsule 100 mg PO Q12HR #60 caps 10/18/21 04/17/24 Rx lisinopril 40 mg tablet 40 mg PO DAILY #90 tabs 05/03/23 04/17/24 Rx multivitamin (Daily-Holly tablet) 1 tablet PO DAILY 05/03/23 04/17/24 History multivitamin with folic acid 400 1 tablet PO DAILY 11/14/23 04/17/24 History mcg tablet (Tab-A-Holly) sodium chloride 1,000 mg soluble 1,000 mg PO DAILY 11/14/23 04/17/24 History tablet acetaminophen 325 mg tablet 975 mg (3 x 325 mg) PO TID #30 tabs 11/29/23 04/17/24 Rx carvedilol 3.125 mg tablet (Coreg) 12.5 mg (4 x 3.125 mg) PO QAM 30 11/29/23 04/17/24 Rx days #60 tabs hydralazine 25 mg tablet 25 mg PO TID 12/11/23 04/17/24 History lidocaine 5 % topical patch 1 patch topical DAILY 01/23/24 04/17/24 History solifenacin 10 mg tablet (Vesicare) 10 mg PO DAILY #30 tabs 03/13/24 04/17/24 Rx camphor-menthol 0.2 %-3.5 % 1 applic topical BID 04/17/24 04/17/24 History topical gel Laboratory Tests 04/16/24 04/16/24 04/16/24 15:32 15:32 15:32 WBC 4.1 L K/mm3 (4.5-10.0) RBC 3.14 L M/mm3 (4.2-5.4) Hgb 9.7 L g/dL (12.0-15.0) Hct 30.5 L % (37.0-47.0) MCV 97.1 fl (80-100) MCH 30.9 pg (26-34) MCHC 31.8 L g/dl (32-36) RDW 16.9 H % (11.5-14.5) Plt Count 195 k/mm3 (150-375) MPV 8.3 fl (7.4-10.4) Immature Gran % (Auto) 0.0 % (0-0.5) Neut % (Auto) 62.8 % (45.5-73.1) Lymph % (Auto) 16.3 L % (18.3-44.2) [place] % (Auto) 19.2 H % (2.6-8.5) Eos % (Auto) 1.0 % (0-4.4) Baso % (Auto) 0.7 % (0.2-1.2) Lymph # (Auto) 0.67 L K/mm3 (0.9-3.2) [place] # (Auto) 0.8 H K/mm3 (0.1-0.6) Eos # (Auto) 0.0 K/mm3 (0-0.3) Baso # (Auto) 0.0 K/mm3 (0.0-0.1) Abs Immat Gran (auto) 0.00 K/mm3 (0.00-0.031) Absolute Neuts (auto) 2.6 K/mm3 (1.3-6.7) Absolute Nucleated RBC 0.000 K/mm3 (0.0-0.012) Nucleated RBC % 0.0 % (0.0-0.2) PT 14.6 Seconds (11.1-14.7) INR 1.1 APTT 55.8 H Seconds (22.3-36.8) Sodium 130 L mmol/L Cancelled (137-145) Potassium 4.8 mmol/L Cancelled (3.4-5.0) Chloride 100 mmol/L (98-107) Carbon Dioxide Anion Gap BUN Creatinine Estim Creat Clear Calc Estimated GFR Glucose Calcium Magnesium Total Bilirubin AST ALT Alkaline Phosphatase Troponin I NT-Pro-B Natriuret Pep Total Protein Albumin TSH (Reflex) Urine Color Urine Appearance Urine pH Ur Specific [place] Urine Protein Urine Glucose (UA) Urine Ketones Ur Blood (Man) Urine Nitrate Urine Bilirubin Urine Urobilinogen Leukocyte Esterase Rfl 04/16/24 04/16/24 04/16/24 15:32 15:32 15:32 WBC RBC Hgb Hct MCV MCH MCHC RDW Plt Count MPV Immature Gran % (Auto) Neut % (Auto) Lymph % (Auto) [place] % (Auto) Eos % (Auto) Baso % (Auto) Lymph # (Auto) [place] # (Auto) Eos # (Auto) Baso # (Auto) Abs Immat Gran (auto) Absolute Neuts (auto) Absolute Nucleated RBC Nucleated RBC % PT INR APTT Sodium Potassium Chloride Cancelled Carbon Dioxide 29 mmol/L Cancelled (22-30) Anion Gap 1 L mmol/L Cancelled (4-12) BUN 22 H mg/dL (7-17) Creatinine Estim Creat Clear Calc Estimated GFR Glucose Calcium Magnesium Total Bilirubin AST ALT Alkaline Phosphatase Troponin I NT-Pro-B Natriuret Pep Total Protein Albumin TSH (Reflex) Urine Color Urine Appearance Urine pH Ur Specific [place] Urine Protein Urine Glucose (UA) Urine Ketones Ur Blood (Man) Urine Nitrate Urine Bilirubin Urine Urobilinogen Leukocyte Esterase Rfl 04/16/24 04/16/24 04/16/24 15:32 15:32 15:32 WBC RBC Hgb Hct MCV MCH MCHC RDW Plt Count MPV Immature Gran % (Auto) Neut % (Auto) Lymph % (Auto) [place] % (Auto) Eos % (Auto) Baso % (Auto) Lymph # (Auto) [place] # (Auto) Eos # (Auto) Baso # (Auto) Abs Immat Gran (auto) Absolute Neuts (auto) Absolute Nucleated RBC Nucleated RBC % PT INR APTT Sodium Potassium Chloride Carbon Dioxide Anion Gap BUN Cancelled Creatinine 0.60 L mg/dL Cancelled (0.7-1.0) Estim Creat Clear Calc Not Reportable Cancelled Estimated GFR > 60 (59 - ) Glucose Calcium Magnesium Total Bilirubin AST ALT Alkaline Phosphatase Troponin I NT-Pro-B Natriuret Pep Total Protein Albumin TSH (Reflex) Urine Color Urine Appearance Urine pH Ur Specific [place] Urine Protein Urine Glucose (UA) Urine Ketones Ur Blood (Man) Urine Nitrate Urine Bilirubin Urine Urobilinogen Leukocyte Esterase Rfl 04/16/24 04/16/24 04/16/24 15:32 15:32 15:32 WBC RBC Hgb Hct MCV MCH MCHC RDW Plt Count MPV Immature Gran % (Auto) Neut % (Auto) Lymph % (Auto) [place] % (Auto) Eos % (Auto) Baso % (Auto) Lymph # (Auto) [place] # (Auto) Eos # (Auto) Baso # (Auto) Abs Immat Gran (auto) Absolute Neuts (auto) Absolute Nucleated RBC Nucleated RBC % PT INR APTT Sodium Potassium Chloride Carbon Dioxide Anion Gap BUN Creatinine Estim Creat Clear Calc Estimated GFR Cancelled Glucose 80 mg/dL Cancelled (65-110) Calcium 9.1 mg/dL Cancelled (8.4-10.2) Magnesium Total Bilirubin 0.7 mg/dL (0.2-1.3) AST ALT Alkaline Phosphatase Troponin I NT-Pro-B Natriuret Pep Total Protein Albumin TSH (Reflex) Urine Color Urine Appearance Urine pH Ur Specific [place] Urine Protein Urine Glucose (UA) Urine Ketones Ur Blood (Man) Urine Nitrate Urine Bilirubin Urine Urobilinogen Leukocyte Esterase Rfl 04/16/24 04/16/24 04/16/24 15:32 15:32 15:32 WBC RBC Hgb Hct MCV MCH MCHC RDW Plt Count MPV Immature Gran % (Auto) Neut % (Auto) Lymph % (Auto) [place] % (Auto) Eos % (Auto) Baso % (Auto) Lymph # (Auto) [place] # (Auto) Eos # (Auto) Baso # (Auto) Abs Immat Gran (auto) Absolute Neuts (auto) Absolute Nucleated RBC Nucleated RBC % PT INR APTT Sodium Potassium Chloride Carbon Dioxide Anion Gap BUN Creatinine Estim Creat Clear Calc Estimated GFR Glucose Calcium Magnesium Total Bilirubin Cancelled AST 37 H U/L Cancelled (14-36) ALT 25 U/L Cancelled (6-35) Alkaline Phosphatase 103 U/L (38-126) Troponin I NT-Pro-B Natriuret Pep Total Protein Albumin TSH (Reflex) Urine Color Urine Appearance Urine pH Ur Specific [place] Urine Protein Urine Glucose (UA) Urine Ketones Ur Blood (Man) Urine Nitrate Urine Bilirubin Urine Urobilinogen Leukocyte Esterase Rfl 04/16/24 04/16/24 04/16/24 15:32 15:32 15:32 WBC RBC Hgb Hct MCV MCH MCHC RDW Plt Count MPV Immature Gran % (Auto) Neut % (Auto) Lymph % (Auto) [place] % (Auto) Eos % (Auto) Baso % (Auto) Lymph # (Auto) [place] # (Auto) Eos # (Auto) Baso # (Auto) Abs Immat Gran (auto) Absolute Neuts (auto) Absolute Nucleated RBC Nucleated RBC % PT INR APTT Sodium Potassium Chloride Carbon Dioxide Anion Gap BUN Creatinine Estim Creat Clear Calc Estimated GFR Glucose Calcium Magnesium Total Bilirubin AST ALT Alkaline Phosphatase Cancelled Troponin I 0.042 H* ng/mL (0.000-0.034) NT-Pro-B Natriuret Pep 1890 H pg/mL Cancelled (19.9-100) Total Protein 6.0 L g/dL Cancelled (6.3-8.2) Albumin 3.7 g/dL (3.5-5.1) TSH (Reflex) Urine Color Urine Appearance Urine pH Ur Specific [place] Urine Protein Urine Glucose (UA) Urine Ketones Ur Blood (Man) Urine Nitrate Urine Bilirubin Urine Urobilinogen Leukocyte Esterase Rfl 04/16/24 04/16/24 04/16/24 15:32 21:59 22:27 WBC RBC Hgb Hct MCV MCH MCHC RDW Plt Count MPV Immature Gran % (Auto) Neut % (Auto) Lymph % (Auto) [place] % (Auto) Eos % (Auto) Baso % (Auto) Lymph # (Auto) [place] # (Auto) Eos # (Auto) Baso # (Auto) Abs Immat Gran (auto) Absolute Neuts (auto) Absolute Nucleated RBC Nucleated RBC % PT INR APTT Sodium Potassium Chloride Carbon Dioxide Anion Gap BUN Creatinine Estim Creat Clear Calc Estimated GFR Glucose Calcium Magnesium Total Bilirubin AST ALT Alkaline Phosphatase Troponin I 0.036 H* ng/mL (0.000-0.034) NT-Pro-B Natriuret Pep Total Protein Albumin Cancelled TSH (Reflex) Urine Color Yellow (Yellow) Urine Appearance Clear (Clear) Urine pH 5.0 (5.0-9.0) Ur Specific [place] 1.008 (1.001-1.035) Urine Protein Negative mg/dL (Negative) Urine Glucose (UA) Negative mg/dL (Negative) Urine Ketones Trace H mg/dL (Negative) Ur Blood (Man) Negative (Negative) Urine Nitrate Negative (Negative) Urine Bilirubin Negative (Negative) Urine Urobilinogen 0.2 mg/dL (<2.0) Leukocyte Esterase Rfl Negative ZULLY/UL (Negative) 04/17/24 04:06 WBC 3.1 L K/mm3 (4.5-10.0) RBC 2.91 L M/mm3 (4.2-5.4) Hgb 9.1 L g/dL (12.0-15.0) Hct 29.0 L % (37.0-47.0) MCV 99.7 fl (80-100) MCH 31.3 pg (26-34) MCHC 31.4 L g/dl (32-36) RDW 16.8 H % (11.5-14.5) Plt Count 172 k/mm3 (150-375) MPV 8.6 fl (7.4-10.4) Immature Gran % (Auto) Neut % (Auto) Lymph % (Auto) [place] % (Auto) Eos % (Auto) Baso % (Auto) Lymph # (Auto) [place] # (Auto) Eos # (Auto) Baso # (Auto) Abs Immat Gran (auto) Absolute Neuts (auto) Absolute Nucleated RBC Nucleated RBC % PT INR APTT Sodium 130 L mmol/L (137-145) Potassium 4.4 mmol/L (3.4-5.0) Chloride 100 mmol/L (98-107) Carbon Dioxide 31 H mmol/L (22-30) Anion Gap -1 L mmol/L (4-12) BUN 20 H mg/dL (7-17) Creatinine 0.70 mg/dL (0.7-1.0) Estim Creat Clear Calc 48 ml/min Estimated GFR > 60 (59 - ) Glucose 79 mg/dL (65-110) Calcium 8.7 mg/dL (8.4-10.2) Magnesium 1.8 mg/dL (1.6-2.3) Total Bilirubin AST ALT Alkaline Phosphatase Troponin I NT-Pro-B Natriuret Pep Total Protein Albumin TSH (Reflex) 0.665 uIU/mL (0.465-4.68) Urine Color Urine Appearance Urine pH Ur Specific [place] Urine Protein Urine Glucose (UA) Urine Ketones Ur Blood (Man) Urine Nitrate Urine Bilirubin Urine Urobilinogen Leukocyte Esterase Rfl Patient hx anesthesia problems: none Family hx anesthesia problems: none Results Review: All pre-operative results and documents have been reviewed as part of the pre-operative evaluation. 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 Chronic anemia Hard of hearing Hyperlipidemia Chronic hyponatremia Overactive bladder Hypertension Ischemic stroke Surgical History Surgical History History of arthroplasty of right knee History of renal stent History of permanent cardiac pacemaker placement Family History Family History Mother CAD (coronary artery disease) Father Acute myocardial infarction Sibling No problems noted. Social History Social History Social History: Surrogate medical decision maker: Aura Perez, daughter. Code status: Do not resuscitate. Smoking status: Never smoker Second hand tobacco smoke exposure: No Alcohol intake: never Substance use: never Substance use type: does not use Do You Feel Safe in your Home?: Yes Lack of Transportation: No Lack of Food: Never True Current Housing: I Have Housing Concerned About Future Housing: No Difficulty Paying Gas/Electric Bills: No Difficulty Paying for Meds: No Currently Unemployed: No Education: High School Diploma/GED Difficulty w/ Childcare or Family Care: No Living arrangements: assisted living Additional living arrangements comments: . Lives in assisted living at [facility]. Currently at [facility] for rehab. Occupation/Education: retired Additional occupation/education comments: Retired from working at a bank. Spiritual care concerns: No Anes - Eval Final PreProcedure Day of Procedure 04/17/24 09:35 Patient weight: obese Heart: regular rate and rhythm Lungs: clear to auscultation Airway: Mallampati scale and special considerations (Teeth in very poor condition, none loose but missing many on top. ) Neurological: alert and oriented Last oral intake: >/= 8 hours ASA classification: III Emergent: no Anesthetic plan: proceed Anesthesia type and monitoring: general GIVS and standard monitoring Results Review: All pre-operative results and documents have been reviewed as part of the pre-operative evaluation. Notes reviewed. Pt w complicated med hx, eval for CHF but CXR nml and pt without any cp or sob. Apparent ISB done per ER notes for attempted reduction. Will plan IV sedation for closed reduction today. Informed Consent: The patient's anesthetic plan and its attendant risks and benefits were discussed with the patient/family/POA. Questions were solicited and answers provided to the satisfaction of the patient/family/POA.
--- NOTE | 2024-04-17 10:49 | W.PM.PROC2 ---
Procedure Note - Detailed Date of Procedure 04/17/24 Pre-op Diagnosis Dislocated Right Shoulder Post-op Diagnosis Same Procedure Performed Reduction Surgeon Mario Alberto Bullard MD Anesthesia General Indications Dislocated Shoulder unknown time Description of Procedure Patient brought to operating room 8. A general anesthetic was administered. Shoulder was gently manipulated back in the its normal position. It was unstable. I then placed her in a shoulder immobilizer. X-rays in the AP and scapular view demonstrate good alignment. Patient tolerated procedure well. Estimated Blood Loss 0 Urine Output 900 [facility] Billing Surgery - Charge Forward: Surgery Billing ([id number] Reduction with anesthesia. Also bill mid level consult)
[2024-04-17] MEDS: LACTATED RINGERS 1,000 ML 30 ML IV CONT (10:56)
--- NOTE | 2024-04-17 11:02 | PM.IMPN ---
Progress Note: A&P Assessment and Plan (1) Suspected congestive heart failure: Code(s): R09.89 - Other specified symptoms and signs involving the circulatory and respiratory systems Status: Acute Assessment and Plan: Will continue diuresis. Lower extremity venous Doppler ordered. Cardiology consult. Monitor I's and O's. (2) Anterior dislocation of right shoulder: Code(s): S43.014A - Anterior dislocation of right humerus, initial encounter Status: Acute Assessment and Plan: Orthopedic consult. Pain control. (3) Chronic hyponatremia: Code(s): E87.1 - Hypo-osmolality and hyponatremia Status: Chronic Assessment and Plan: Stable on current medications, will continue current treatment monitor closely. (4) Chronic anemia: Code(s): D64.9 - Anemia, unspecified Status: Acute Assessment and Plan: Stable monitor closely. (5) Hypertension: Code(s): I10 - Essential (primary) hypertension Status: Acute Assessment and Plan: Continue home meds and monitor closely. Plan The patient presented to the emergency department for evaluation of right shoulder pain lower extremity edema as detailed in HPI. Labs, imaging, EKG, and all reports were personally reviewed. Clinical condition is consistent with congestive heart failure with an elevated proBNP, pleural effusions on imaging, and lower extremity edema. She will be judiciously diuresed with close monitoring of volume status, renal function, and electrolytes. Initial troponin was elevated but it has remained flat likely this is elevated in the setting of CHF as she has no complaints of chest pain and EKG does not demonstrate any acute ST segment changes. Echocardiogram ordered. ApneaLink has also been ordered. She has chronic hyponatremia which is stable and may even improve with diuresis. Anemia stable on review of previous labs. Right shoulder is currently immobilized. Dr. Bullard was consulted by the ED provider his input is appreciated. Cardiology on consult. Code status DNR DVT prophylaxis ordered Subjective Date/time seen: 04/17/24 11:02 Interval history: Patient was seen during the morning rounds today. Patient pain is under control. Mild shortness of breath. No chest pain. No abdominal pain, nausea, no vomiting. Review of Systems Review of Systems: 12 systems were reviewed and are negative except for as per HPI. Exam Narrative: General: Nontoxic-appearing elderly female in the semi-Kunz position in bed. Weight: 79.1 kg. BMI: 30.9. HEENT: Hard of hearing. PERRL, EOMI. Sclera anicteric. Moist mucous membranes. Neck: Supple. Exam limited due to neck circumference but no obvious JVD. Respiratory: Respirations are nonlabored she is speaking full sentences. She is currently on 2 L nasal cannula with an SpO2 of 100%. Lung sounds are a bit diminished at the bases with fine crackles. Cardiovascular: Regular rate and rhythm with S1-S2. Murmur at the left upper sternal border. Gastrointestinal: Abdomen is soft, nontender, and nondistended with positive bowel sounds. Skin: Warm and dry. Generalized pallor. Extremities: No cyanosis or clubbing. She has 3 to 4+ bilateral lower extremity pitting edema, right greater than left. There is weeping of the legs, again worse on the right. Right upper extremity is in sling. Neurological: Alert. Cranial nerves 2-12 are grossly intact. No gross focal deficits to casual conversation. Psychiatric: Pleasant and cooperative with appropriate mood and affect. Objective Data Vital Signs Vital Signs: Vital Signs - 24 hr 04/16/24 12:14 04/16/24 19:15 04/16/24 19:27 Temperature 36.5 C Pulse Rate 63 Respiratory Rate 16 Blood Pressure 136/62 Pulse Oximetry 100 100 97 Oxygen Delivery Nasal Cannula Oxygen Flow Rate 2 04/16/24 20:09 04/16/24 21:23 04/16/24 23:02 Temperature Pulse Rate 72 82 82 Respiratory Rate 17 19 16 Blood Pressure 192/85 H 142/90 H Pulse Oximetry 100 100 100 Oxygen Delivery Oxygen Flow Rate 04/17/24 01:54 04/17/24 02:00 04/17/24 02:15 Temperature 37.1 C Pulse Rate 84 78 84 Respiratory Rate 18 18 Blood Pressure 160/97 H Pulse Oximetry 100 100 Oxygen Delivery Nasal Cannula Oxygen Flow Rate 2 04/17/24 03:37 04/17/24 03:37 04/17/24 05:17 Temperature 37.1 C Pulse Rate 84 84 79 Respiratory Rate 18 18 Blood Pressure 150/82 H Pulse Oximetry 100 100 Oxygen Delivery Nasal Cannula Oxygen Flow Rate 2 04/17/24 05:50 04/17/24 08:00 Temperature 37.2 C Pulse Rate 68 78 Respiratory Rate 16 Blood Pressure 158/86 H Pulse Oximetry 100 Oxygen Delivery Oxygen Flow Rate Intake/Output Intake/Output: Intake & Output 04/14/24 04/15/24 04/16/24 04/17/24 23:59 23:59 23:59 23:59 Output Total 1800 Balance -1800 Meds/Results Medications: Active Medications Generic Name Dose Route Start Last Admin Trade Name Freq PRN Reason Stop Dose Admin Acetaminophen 650 mg 04/17/24 02:35 Acetaminophen 325 Mg Tablet PO Q6H PRN Mild Pain (1-3) or Fever Aspirin 81 mg 04/17/24 09:00 Aspirin 81 Mg Enteric Tablet PO DAILY [facility] Carvedilol 12.5 mg 04/17/24 09:00 Carvedilol 12.5 Mg Tablet PO QAM [facility] Docusate Sodium 100 mg 04/17/24 09:00 Docusate Sodium 100 Mg Capsule PO Q12HR [facility] Fentanyl Citrate 25 mcg 04/17/24 09:37 Fentanyl Citrate Inj (*Crx) 100 Mcg/2 Ml Vial IV PUSH Q2M PRN Pain Furosemide 40 mg 04/17/24 09:00 Furosemide Inj 40 Mg/4 Ml Vial IV PUSH Q12HR [facility] Hydralazine HCl 25 mg 04/17/24 09:00 Hydralazine Hcl 25 Mg Tablet PO TID [facility] Lactated Ringer's 1,000 mls @ 30 mls/hr 04/17/24 09:40 Lr - Lactated Ringers Iv IV CONT .Q24H [facility] Lactated Ringer's 1,000 mls @ 30 mls/hr 04/17/24 09:40 Lr - Lactated Ringers Iv IV CONT .Q24H [facility] Lidocaine 1 patch 04/17/24 09:00 Lidocaine 5% Patch TOPICAL DAILY [facility] Lisinopril 40 mg 04/17/24 09:00 Lisinopril 20 Mg Tablet PO DAILY [facility] Multivitamins Therapeutic 1 tablet 04/17/24 09:00 Multivitamins Therapeutic Tab (*Bkc) PO DAILY [facility] Ondansetron HCl 4 mg 04/17/24 09:37 Ondansetron Inj 4 Mg/2 Ml Vial IV PUSH ONCE PRN Nausea Perflutren Lipid Microsphere 0 ml 04/17/24 02:35 Perflutren Lipid Microspheres 1.5 Ml Vial Diluted To 10 Ml Total Volume IV PUSH 04/20/24 02:36 ONCE PRN adequate visualization Protocol Sodium Chloride 1 gm 04/17/24 09:00 Sodium Chloride 1 Gm Tablet PO DAILY [facility] Solifenacin 10 mg 04/17/24 09:00 Solifenacin 5 Mg Tablet [facility] [place] Radiology Results: ITS Impressions Chest X-Ray 04/16/24 15:43 IMPRESSION: Subsegmental bibasilar atelectasis/consolidation. Small bilateral pleural effusions. Right shoulder dislocation. Labs Labs: Laboratory Results - last 24 hr 04/16/24 04/16/24 04/16/24 15:32 15:32 15:32 WBC 4.1 L RBC 3.14 L Hgb 9.7 L Hct 30.5 L MCV 97.1 MCH 30.9 MCHC 31.8 L RDW 16.9 H Plt Count 195 MPV 8.3 Immature Gran % (Auto) 0.0 Neut % (Auto) 62.8 Lymph % (Auto) 16.3 L [place] % (Auto) 19.2 H Eos % (Auto) 1.0 Baso % (Auto) 0.7 Lymph # (Auto) 0.67 L [place] # (Auto) 0.8 H Eos # (Auto) 0.0 Baso # (Auto) 0.0 Abs Immat Gran (auto) 0.00 Absolute Neuts (auto) 2.6 Absolute Nucleated RBC 0.000 Nucleated RBC % 0.0 PT 14.6 INR 1.1 APTT 55.8 H Sodium 130 L Cancelled Potassium 4.8 Cancelled Chloride 100 Carbon Dioxide Anion Gap BUN Creatinine Estim Creat Clear Calc Estimated GFR Glucose Calcium Magnesium Total Bilirubin AST ALT Alkaline Phosphatase Troponin I NT-Pro-B Natriuret Pep Total Protein Albumin TSH (Reflex) Urine Color Urine Appearance Urine pH Ur Specific [place] Urine Protein Urine Glucose (UA) Urine Ketones Ur Blood (Man) Urine Nitrate Urine Bilirubin Urine Urobilinogen Leukocyte Esterase Rfl 04/16/24 04/16/24 04/16/24 15:32 15:32 15:32 WBC RBC Hgb Hct MCV MCH MCHC RDW Plt Count MPV Immature Gran % (Auto) Neut % (Auto) Lymph % (Auto) [place] % (Auto) Eos % (Auto) Baso % (Auto) Lymph # (Auto) [place] # (Auto) Eos # (Auto) Baso # (Auto) Abs Immat Gran (auto) Absolute Neuts (auto) Absolute Nucleated RBC Nucleated RBC % PT INR APTT Sodium Potassium Chloride Cancelled Carbon Dioxide 29 Cancelled Anion Gap 1 L Cancelled BUN 22 H Creatinine Estim Creat Clear Calc Estimated GFR Glucose Calcium Magnesium Total Bilirubin AST ALT Alkaline Phosphatase Troponin I NT-Pro-B Natriuret Pep Total Protein Albumin TSH (Reflex) Urine Color Urine Appearance Urine pH Ur Specific [place] Urine Protein Urine Glucose (UA) Urine Ketones Ur Blood (Man) Urine Nitrate Urine Bilirubin Urine Urobilinogen Leukocyte Esterase Rfl 04/16/24 04/16/24 04/16/24 15:32 15:32 15:32 WBC RBC Hgb Hct MCV MCH MCHC RDW Plt Count MPV Immature Gran % (Auto) Neut % (Auto) Lymph % (Auto) [place] % (Auto) Eos % (Auto) Baso % (Auto) Lymph # (Auto) [place] # (Auto) Eos # (Auto) Baso # (Auto) Abs Immat Gran (auto) Absolute Neuts (auto) Absolute Nucleated RBC Nucleated RBC % PT INR APTT Sodium Potassium Chloride Carbon Dioxide Anion Gap BUN Cancelled Creatinine 0.60 L Cancelled Estim Creat Clear Calc Not Reportable Cancelled Estimated GFR > 60 Glucose Calcium Magnesium Total Bilirubin AST ALT Alkaline Phosphatase Troponin I NT-Pro-B Natriuret Pep Total Protein Albumin TSH (Reflex) Urine Color Urine Appearance Urine pH Ur Specific [place] Urine Protein Urine Glucose (UA) Urine Ketones Ur Blood (Man) Urine Nitrate Urine Bilirubin Urine Urobilinogen Leukocyte Esterase Rfl 04/16/24 04/16/24 04/16/24 15:32 15:32 15:32 WBC RBC Hgb Hct MCV MCH MCHC RDW Plt Count MPV Immature Gran % (Auto) Neut % (Auto) Lymph % (Auto) [place] % (Auto) Eos % (Auto) Baso % (Auto) Lymph # (Auto) [place] # (Auto) Eos # (Auto) Baso # (Auto) Abs Immat Gran (auto) Absolute Neuts (auto) Absolute Nucleated RBC Nucleated RBC % PT INR APTT Sodium Potassium Chloride Carbon Dioxide Anion Gap BUN Creatinine Estim Creat Clear Calc Estimated GFR Cancelled Glucose 80 Cancelled Calcium 9.1 Cancelled Magnesium Total Bilirubin 0.7 AST ALT Alkaline Phosphatase Troponin I NT-Pro-B Natriuret Pep Total Protein Albumin TSH (Reflex) Urine Color Urine Appearance Urine pH Ur Specific [place] Urine Protein Urine Glucose (UA) Urine Ketones Ur Blood (Man) Urine Nitrate Urine Bilirubin Urine Urobilinogen Leukocyte Esterase Rfl 04/16/24 04/16/24 04/16/24 15:32 15:32 15:32 WBC RBC Hgb Hct MCV MCH MCHC RDW Plt Count MPV Immature Gran % (Auto) Neut % (Auto) Lymph % (Auto) [place] % (Auto) Eos % (Auto) Baso % (Auto) Lymph # (Auto) [place] # (Auto) Eos # (Auto) Baso # (Auto) Abs Immat Gran (auto) Absolute Neuts (auto) Absolute Nucleated RBC Nucleated RBC % PT INR APTT Sodium Potassium Chloride Carbon Dioxide Anion Gap BUN Creatinine Estim Creat Clear Calc Estimated GFR Glucose Calcium Magnesium Total Bilirubin Cancelled AST 37 H Cancelled ALT 25 Cancelled Alkaline Phosphatase 103 Troponin I NT-Pro-B Natriuret Pep Total Protein Albumin TSH (Reflex) Urine Color Urine Appearance Urine pH Ur Specific [place] Urine Protein Urine Glucose (UA) Urine Ketones Ur Blood (Man) Urine Nitrate Urine Bilirubin Urine Urobilinogen Leukocyte Esterase Rfl 04/16/24 04/16/24 04/16/24 15:32 15:32 15:32 WBC RBC Hgb Hct MCV MCH MCHC RDW Plt Count MPV Immature Gran % (Auto) Neut % (Auto) Lymph % (Auto) [place] % (Auto) Eos % (Auto) Baso % (Auto) Lymph # (Auto) [place] # (Auto) Eos # (Auto) Baso # (Auto) Abs Immat Gran (auto) Absolute Neuts (auto) Absolute Nucleated RBC Nucleated RBC % PT INR APTT Sodium Potassium Chloride Carbon Dioxide Anion Gap BUN Creatinine Estim Creat Clear Calc Estimated GFR Glucose Calcium Magnesium Total Bilirubin AST ALT Alkaline Phosphatase Cancelled Troponin I 0.042 H* NT-Pro-B Natriuret Pep 1890 H Cancelled Total Protein 6.0 L Cancelled Albumin 3.7 TSH (Reflex) Urine Color Urine Appearance Urine pH Ur Specific [place] Urine Protein Urine Glucose (UA) Urine Ketones Ur Blood (Man) Urine Nitrate Urine Bilirubin Urine Urobilinogen Leukocyte Esterase Rfl 04/16/24 04/16/24 04/16/24 15:32 21:59 22:27 WBC RBC Hgb Hct MCV MCH MCHC RDW Plt Count MPV Immature Gran % (Auto) Neut % (Auto) Lymph % (Auto) [place] % (Auto) Eos % (Auto) Baso % (Auto) Lymph # (Auto) [place] # (Auto) Eos # (Auto) Baso # (Auto) Abs Immat Gran (auto) Absolute Neuts (auto) Absolute Nucleated RBC Nucleated RBC % PT INR APTT Sodium Potassium Chloride Carbon Dioxide Anion Gap BUN Creatinine Estim Creat Clear Calc Estimated GFR Glucose Calcium Magnesium Total Bilirubin AST ALT Alkaline Phosphatase Troponin I 0.036 H* NT-Pro-B Natriuret Pep Total Protein Albumin Cancelled TSH (Reflex) Urine Color Yellow Urine Appearance Clear Urine pH 5.0 Ur Specific [place] 1.008 Urine Protein Negative Urine Glucose (UA) Negative Urine Ketones Trace H Ur Blood (Man) Negative Urine Nitrate Negative Urine Bilirubin Negative Urine Urobilinogen 0.2 Leukocyte Esterase Rfl Negative 04/17/24 04:06 WBC 3.1 L RBC 2.91 L Hgb 9.1 L Hct 29.0 L MCV 99.7 MCH 31.3 MCHC 31.4 L RDW 16.8 H Plt Count 172 MPV 8.6 Immature Gran % (Auto) Neut % (Auto) Lymph % (Auto) [place] % (Auto) Eos % (Auto) Baso % (Auto) Lymph # (Auto) [place] # (Auto) Eos # (Auto) Baso # (Auto) Abs Immat Gran (auto) Absolute Neuts (auto) Absolute Nucleated RBC Nucleated RBC % PT INR APTT Sodium 130 L Potassium 4.4 Chloride 100 Carbon Dioxide 31 H Anion Gap -1 L BUN 20 H Creatinine 0.70 Estim Creat Clear Calc 48 Estimated GFR > 60 Glucose 79 Calcium 8.7 Magnesium 1.8 Total Bilirubin AST ALT Alkaline Phosphatase Troponin I NT-Pro-B Natriuret Pep Total Protein Albumin TSH (Reflex) 0.665 Urine Color Urine Appearance Urine pH Ur Specific [place] Urine Protein Urine Glucose (UA) Urine Ketones Ur Blood (Man) Urine Nitrate Urine Bilirubin Urine Urobilinogen Leukocyte Esterase Rfl Quality VTE Prophylaxis VTE prophylaxis: pharmacologic ordered
[2024-04-17] MEDS: lisinopriL 20 MG TABLET 40 MG PO (13:22)
[2024-04-17] MEDS: SODIUM CHLORIDE 1 GM TABLET PO (13:22)
[2024-04-17] MEDS: ASPIRIN 81 MG ENTERIC TABLET PO (13:22)
[2024-04-17] MEDS: hydrALAZINE HCL 25 MG TABLET PO ×2 (13:22→20:55)
[2024-04-17] MEDS: carvediloL 12.5 MG TABLET PO (13:23)
[2024-04-17] MEDS: FUROSEMIDE INJ 40 MG/4 ML VIAL IV PUSH ×2 (13:23→20:54)
[2024-04-17] MEDS: ENOXAPARIN 40 MG/0.4 ML SYRINGE SUB-Q (13:23)
[2024-04-17] MEDS: LIDOCAINE 5% PATCH 1 PATCH TOPICAL (13:30)
[2024-04-17] MEDS: DOCUSATE SODIUM 100 MG CAPSULE PO ×2 (13:30→20:55)
[2024-04-17] MEDS: ACETAMINOPHEN 325 MG TABLET 650 MG PO (13:31)
[2024-04-17] MEDS: SOLIFENACIN 5 MG TABLET 10 MG PO (13:31)
[2024-04-18] VITALS (19 sets, daily range): BP systolic 119–149; BP diastolic 48–61; PULSE 61–79; RESP 16–20; TEMP 36.3–36.8; O2SAT 93–100
[2024-04-18 07:27] LABS: Hematocrit 30.4 % (37.0-47.0); Hemoglobin 9.4 g/dL (12.0-15.0); Mean Corpuscular HGB Conc 30.9 g/dl (32-36); Mean Corpuscular Hemoglobin 31.4 pg (26-34); Mean Corpuscular Volume 101.7 fl (80-100); Mean Platelet Volume 8.5 fl (7.4-10.4); Platelet Count Result 158 k/mm3 (150-375); Red Blood Count 2.99 M/mm3 (4.2-5.4); Red Cell Distribution Width 16.9 % (11.5-14.5)
[2024-04-18 07:37] LABS: Alanine Aminotransferase 23 U/L (6-35); Albumin Level 3.3 g/dL (3.5-5.1); Alkaline Phosphatase 80 U/L (38-126); Anion Gap 3 mmol/L (4-12); Aspartate Amino Transferase 35 U/L (14-36); Bilirubin,Total 0.8 mg/dL (0.2-1.3); Blood Urea Nitrogen 18 mg/dL (7-17); Calcium 8.9 mg/dL (8.4-10.2); Carbon Dioxide 29 mmol/L (22-30); Chloride 97 mmol/L (98-107); Estimated CRCL calculation 55 ml/min; Estimated Glomerular Filt Rate > 60; Glucose 61 mg/dL (65-110); Sodium 129 mmol/L (137-145)
[2024-04-18] MEDS: DOCUSATE SODIUM 100 MG CAPSULE PO (09:04)
[2024-04-18] MEDS: hydrALAZINE HCL 25 MG TABLET PO ×3 (09:05→17:08)
[2024-04-18] MEDS: SOLIFENACIN 5 MG TABLET 10 MG PO (09:05)
[2024-04-18] MEDS: SODIUM CHLORIDE 1 GM TABLET PO (09:05)
[2024-04-18] MEDS: ASPIRIN 81 MG ENTERIC TABLET PO (09:05)
[2024-04-18] MEDS: lisinopriL 20 MG TABLET 40 MG PO (09:05)
[2024-04-18] MEDS: MULTIVITAMINS THERAPEUTIC TAB (*BKC) 1 TABLET PO (09:05)
[2024-04-18] MEDS: FUROSEMIDE INJ 40 MG/4 ML VIAL IV PUSH ×2 (09:09→20:35)
[2024-04-18] MEDS: ENOXAPARIN 40 MG/0.4 ML SYRINGE SUB-Q (09:10)
[2024-04-18] MEDS: LIDOCAINE 5% PATCH 1 PATCH TOPICAL (09:10)
[2024-04-18] MEDS: carvediloL 12.5 MG TABLET PO ×2 (09:10→17:08)
--- NOTE | 2024-04-18 10:43 | P.PNIM_ITS ---
Progress Note: A&P Assessment and Plan (1) Suspected congestive heart failure: Code(s): R09.89 - Other specified symptoms and signs involving the circulatory and respiratory systems Status: Acute Assessment and Plan: Will continue diuresis. Lower extremity venous Doppler ordered. Cardiology consult. Monitor I's and O's. (2) Anterior dislocation of right shoulder: Code(s): S43.014A - Anterior dislocation of right humerus, initial encounter Status: Acute Assessment and Plan: Orthopedic consult. Pain control. (3) Chronic hyponatremia: Code(s): E87.1 - Hypo-osmolality and hyponatremia Status: Chronic Assessment and Plan: Stable on current medications, will continue current treatment monitor closely. (4) Chronic anemia: Code(s): D64.9 - Anemia, unspecified Status: Acute Assessment and Plan: Stable monitor closely. (5) Hypertension: Code(s): I10 - Essential (primary) hypertension Status: Acute Assessment and Plan: Continue home meds and monitor closely. Plan The patient presented to the emergency department for evaluation of right shoulder pain lower extremity edema as detailed in HPI. Labs, imaging, EKG, and all reports were personally reviewed. Clinical condition is consistent with congestive heart failure with an elevated proBNP, pleural effusions on imaging, and lower extremity edema. She will be judiciously diuresed with close m onitoring of volume status, renal function, and electrolytes. Initial troponin was elevated but it has remained flat likely this is elevated in the setting of CHF as she has no complaints of chest pain and EKG does not demonstrate any acute ST segment changes. Echocardiogram ordered. ApneaLink has also been ordered. She has chronic hyponatremia which is stable and may even improve with diuresis. Anemia stable on review of previous labs. Right shoulder is currently immobilized. Dr. Bullard was consulted by the ED provider his input is appreciated. Cardiology on consult. Code status DNR DVT prophylaxis ordered Subjective Date/time seen: 04/18/24 10:43 Interval history: Patient has bilateral leg swelling. Echo has been pending. Patient has elevated troponin. Discussed with Cardiology and suspect possible type 2 [place]. EKG shows sinus rhythm. Patient underwent reduction of dislocated right shoulder on 04/17. Exam Narrative: General: Nontoxic-appearing elderly female in the semi-Kunz position in bed. Weight: 79.1 kg. BMI: 30.9. HEENT: Hard of hearing. PERRL, EOMI. Sclera anicteric. Moist mucous membranes. Neck: Supple. Exam limited due to neck circumference but no obvious JVD. Respiratory: Respirations are nonlabored she is speaking full sentences. She is currently on 2 L nasal cannula with an SpO2 of 100%. Lung sounds are a bit diminished at the bases with fine crackles. Cardiovascular: Regular rate and rhythm with S1-S2. Murmur at the left upper sternal border. Gastrointestinal: Abdomen is soft, nontender, and nondistended with positive bowel sounds. Skin: Warm and dry. Generalized pallor. Extremities: No cyanosis or clubbing. She has 3 to 4+ bilateral lower extremity pitting edema, right greater than left. There is weeping of the legs, again worse on the right. Right upper extremity is in sling. Neurological: Alert. Cranial nerves 2-12 are grossly intact. No gross focal deficits to casual conversation. Psychiatric: Pleasant and cooperative with appropriate mood and affect. Objective Data Vital Signs Vital Signs: Vital Signs - 24 hr 04/17/24 10:56 04/17/24 11:00 04/17/24 11:15 Temperature 97.1 F L Pulse Rate 75 75 80 Respiratory Rate 20 12 17 Blood Pressure 158/93 H 178/58 H 171/81 H Pulse Oximetry 100 100 95 Oxygen Delivery Simple Face Mask Simple Face Mask Nasal Cannula Oxygen Flow Rate 10 10 2 04/17/24 11:30 04/17/24 11:45 04/17/24 12:00 Temperature Pulse Rate 82 82 80 Respiratory Rate 14 15 Blood Pressure 176/73 H 173/80 H Pulse Oximetry 100 98 Oxygen Delivery Nasal Cannula Nasal Cannula Oxygen Flow Rate 2 2 04/17/24 13:23 04/17/24 14:00 04/17/24 16:00 Temperature Pulse Rate 67 74 63 Respiratory Rate Blood Pressure Pulse Oximetry Oxygen Delivery Oxygen Flow Rate 04/17/24 18:00 04/17/24 20:00 04/17/24 20:00 Temperature Pulse Rate 83 65 65 Respiratory Rate 18 Blood Pressure Pulse Oximetry 98 Oxygen Delivery Nasal Cannula Oxygen Flow Rate 2 04/17/24 20:41 04/17/24 22:00 04/17/24 22:55 Temperature 98.8 F Pulse Rate 77 84 Respiratory Rate 18 18 Blood Pressure 154/59 H Pulse Oximetry 98 96 Oxygen Delivery Nasal Cannula Oxygen Flow Rate 2 04/17/24 23:36 04/18/24 00:00 04/18/24 00:00 Temperature 98.8 F Pulse Rate 67 72 72 Respiratory Rate 18 18 Blood Pressure 146/63 H Pulse Oximetry 98 98 Oxygen Delivery Nasal Cannula Oxygen Flow Rate 2 04/18/24 01:31 04/18/24 04:00 04/18/24 04:00 Temperature Pulse Rate 68 70 70 Respiratory Rate 18 Blood Pressure Pulse Oximetry 98 Oxygen Delivery Nasal Cannula Oxygen Flow Rate 2 04/18/24 06:00 04/18/24 07:53 04/18/24 09:10 Temperature 98.3 F Pulse Rate 66 79 68 Respiratory Rate 20 Blood Pressure 133/60 Pulse Oximetry 100 Oxygen Delivery Oxygen Flow Rate Intake/Output Intake/Output: Intake & Output 04/15/24 04/16/24 04/17/24 04/18/24 23:59 23:59 23:59 23:59 Intake Total 100 300 Output Total 2800 2800 Balance -2700 -2500 Meds/Results Medications: Active Medications Generic Name Dose Route Start Last Admin Trade Name Freq PRN Reason Stop Dose Admin Acetaminophen 650 mg 04/17/24 02:35 04/17/24 13:31 Acetaminophen 325 Mg Tablet PO 650 mg Q6H PRN Administration Mild Pain (1-3) or Fever Aspirin 81 mg 04/17/24 09:00 04/18/24 09:05 Aspirin 81 Mg Enteric Tablet PO 81 mg DAILY [facility] Administration Carvedilol 12.5 mg 04/18/24 09:10 04/18/24 09:10 Carvedilol 12.5 Mg Tablet PO 12.5 mg BID [facility] Administration Docusate Sodium 100 mg 04/17/24 09:00 04/18/24 09:04 Docusate Sodium 100 Mg Capsule PO 100 mg Q12HR [facility] Administration Enoxaparin Sodium 40 mg 04/17/24 11:25 04/18/24 09:10 Enoxaparin 40 Mg/0.4 Ml Syringe SUB-Q 40 mg DAILY [facility] Administration Fentanyl Citrate 25 mcg 04/17/24 09:37 Fentanyl Citrate Inj (*Crx) 100 Mcg/2 Ml Vial IV PUSH Q2M PRN Pain Furosemide 40 mg 04/17/24 09:00 04/18/24 09:09 Furosemide Inj 40 Mg/4 Ml Vial IV PUSH 40 mg Q12HR [facility] Administration Hydralazine HCl 25 mg 04/17/24 09:00 04/18/24 09:05 Hydralazine Hcl 25 Mg Tablet PO 25 mg TID [facility] Administration Lactated Ringer's 1,000 mls @ 30 mls/hr 04/17/24 09:40 04/18/24 10:27 Lr - Lactated Ringers Iv IV CONT Not Given .Q24H [facility]ED Lactated Ringer's 1,000 mls @ 30 mls/hr 04/17/24 09:40 04/18/24 10:27 Lr - Lactated Ringers Iv IV CONT Not Given .Q24H [facility] Lidocaine 1 patch 04/17/24 09:00 04/18/24 09:10 Lidocaine 5% Patch TOPICAL 1 patch DAILY [facility] Administration Lisinopril 40 mg 04/17/24 09:00 04/18/24 09:05 Lisinopril 20 Mg Tablet PO 40 mg DAILY [facility] Administration Multivitamins Therapeutic 1 tablet 04/17/24 09:00 04/18/24 09:05 Multivitamins Therapeutic Tab (*Bkc) PO 1 tablet DAILY [facility] Administration Ondansetron HCl 4 mg 04/17/24 09:37 Ondansetron Inj 4 Mg/2 Ml Vial IV PUSH ONCE PRN Nausea Perflutren Lipid Microsphere 0 ml 04/17/24 02:35 Perflutren Lipid Microspheres 1.5 Ml Vial Diluted To 10 Ml Total Volume IV PUSH 04/20/24 02:36 ONCE PRN adequate visualization Protocol Sodium Chloride 1 gm 04/17/24 09:00 04/18/24 09:05 Sodium Chloride 1 Gm Tablet PO 1 gm DAILY [facility] Administration Solifenacin 10 mg 04/17/24 09:00 04/18/24 09:05 Solifenacin 5 Mg Tablet PO 10 mg QAM [facility] Administration Radiology Results: ITS Impressions Chest X-Ray 04/16/24 15:43 IMPRESSION: Subsegmental bibasilar atelectasis/consolidation. Small bilateral pleural effusions. Right shoulder dislocation. Shoulder X-Ray 04/17/24 12:13 IMPRESSION: Recurrent anterior right glenohumeral dislocation. Intraoperative X-Ray 04/17/24 12:15 IMPRESSION: 1. Fluoroscopy utilized during successful reduction of the previously dislocated right glenohumeral joint. Venous Doppler Study 01/02/25 10:23 IMPRESSION: 1. No deep venous thrombosis in either lower limb. Labs Labs: Laboratory Results - last 24 hr 04/18/24 07:15 WBC 3.0 L RBC 2.99 L Hgb 9.4 L Hct 30.4 L MCV 101.7 H MCH 31.4 MCHC 30.9 L RDW 16.9 H Plt Count 158 MPV 8.5 Sodium 129 L Potassium 4.0 Chloride 97 L Carbon Dioxide 29 Anion Gap 3 L BUN 18 H Creatinine 0.60 L Estim Creat Clear Calc 55 Estimated GFR > 60 Glucose 61 L Calcium 8.9 Total Bilirubin 0.8 AST 35 ALT 23 Alkaline Phosphatase 80 Total Protein 6.0 L Albumin 3.3 L Hospitalist [facility] Advance Care Plan I have confirmed that the patient's Advanced Care Plan is present, code status is documented, or surrogate decision maker is listed in patient medical record.: Yes Medication Reconciliation I have utilized all available resources to obtain, update and review the patients current medications (includes all prescriptions, OTC, herbals, cannabis, and nutritional supplements).: Yes
--- NOTE | 2024-04-18 13:23 | WPDANESPN ---
Anes - Prog Note Post-Op Date/Time: 04/18/24 13:23 Cardiovascular status: normal Respiratory status: normal Airway patency: baseline Mental status: baseline Post-Op hydration status: normal Vital Signs: Last Vital Signs Temp 36.7 C 04/18/24 11:56 Pulse 61 04/18/24 12:00 Resp 20 04/18/24 11:56 BP 121/61 04/18/24 11:56 Pulse Ox 93 04/18/24 11:56 O2 Del Method Nasal Cannula 04/18/24 04:00 O2 Flow Rate 2 04/18/24 04:00 Pain Score (VAS): 1 I/O: Intake & Output 04/17/24 04/18/24 04/18/24 23:59 07:59 15:59 Intake Total 300 240 Output Total 1000 2800 Balance -1000 -2500 240 Laboratory Tests 04/18/24 07:15 04/18/24 07:15 04/18/24 04/18/24 07:15 11:12 WBC 3.0 L RBC 2.99 L Hgb 9.4 L Hct 30.4 L MCV 101.7 H MCH 31.4 MCHC 30.9 L RDW 16.9 H Plt Count 158 MPV 8.5 Sodium 129 L Potassium 4.0 Chloride 97 L Carbon Dioxide 29 Anion Gap 3 L BUN 18 H Creatinine 0.60 L Estim Creat Clear Calc 55 Estimated GFR > 60 Glucose 61 L Calcium 8.9 Total Bilirubin 0.8 AST 35 ALT 23 Alkaline Phosphatase 80 Troponin I 0.050 H* Total Protein 6.0 L Albumin 3.3 L Patient Feedback: Patient satisfied with anesthetic care.
--- NOTE | 2024-04-18 15:35 | PM.CNCAR ---
Assessment and Plan Assessment and plan (1) Diastolic heart failure: Code(s): I50.30 - Unspecified diastolic (congestive) heart failure Status: Acute (2) Poorly-controlled hypertension: Code(s): I10 - Essential (primary) hypertension Status: Chronic (3) Hyperlipidemia: Code(s): E78.5 - Hyperlipidemia, unspecified Status: Acute Plan 1. Acute on chronic diastolic CHF 2. Type 2 MN 3. HTN 4. Post op for R shoulder dislocation -It is my clinical impression that the patient had type 2 MN because of underlying diastolic heart failure. She most likely may have underlying obstructive heart disease -no indication for an invasive evaluation for now -she has preserved EF with grade 2 diastolic dysfunction -we will keep on IV diuretics today and switch her to oral from tomorrow -optimize antihypertensive medications, increase carvedilol. Continue lisinopril current dose. Monitor blood pressure -She will need a stress test as an outpatient -continue aspirin 81 mg once a day, continue beta-petr -consider low-dose moderate intensity statin History of Present Illness History of Present Illness Consult date/time: 04/18/24 15:35 Reason For Visit: CHF exacerbation Narrative: This is a pleasant 88-year-old female with history of cerebrovascular accident, hypertension, hyperlipidemia, chronic hyponatremia, overactive bladder, anemia, and osteoarthritis who presented to the emergency department via EMS from [facility] for evaluation of lower extremity swelling and right shoulder pain. She was found to be in congestive heart failure with dislocation of the right shoulder. Her troponins were elevated but were flat. Cardiology consulted for further evaluation management She denies any chest pain. However activities of daily living are limited No prior CAD, mi or CHOLO placement ECG shows normal sinus rhythm, no dynamic ST or T-wave changes Echo done shows preserved EF, dilated IVC Currently on Lasix 40 mg IV b.i.d. -5 L since admission Review of Systems Review of Systems: 12 systems were reviewed and are negative except for as per HPI. 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 Chronic anemia Hard of hearing Hyperlipidemia Chronic hyponatremia Overactive bladder Hypertension Ischemic stroke Surgical History Surgical History History of arthroplasty of right knee History of renal stent History of permanent cardiac pacemaker placement Family History Family History Mother CAD (coronary artery disease) Father Acute myocardial infarction Sibling No problems noted. Social History Social History Social History: Surrogate medical decision maker: Aura Perez, daughter. Code status: Do not resuscitate. Smoking status: Never smoker Second hand tobacco smoke exposure: No Alcohol intake: never Substance use: never Substance use type: does not use Do You Feel Safe in your Home?: Yes Lack of Transportation: No Lack of Food: Never True Current Housing: I Have Housing Concerned About Future Housing: No Difficulty Paying Gas/Electric Bills: No Difficulty Paying for Meds: No Currently Unemployed: No Education: High School Diploma/GED Difficulty w/ Childcare or Family Care: No Living arrangements: assisted living Additional living arrangements comments: . Lives in assisted living at [facility]. Currently at [facility] for rehab. Occupation/Education: retired Additional occupation/education comments: Retired from working at a [employer] Spiritual care concerns: No Meds Home Medications and Allergies Home Medications ?Medication ?Instructions ?Recorded ?Confirmed ?Type aspirin 81 mg tablet,delayed 81 mg PO DAILY 10/13/21 04/17/24 History release docusate sodium 100 mg capsule 100 mg PO Q12HR #60 caps 10/18/21 04/17/24 Rx lisinopril 40 mg tablet 40 mg PO DAILY #90 tabs 05/03/23 04/17/24 Rx multivitamin (Daily-Holly tablet) 1 tablet PO DAILY 05/03/23 04/17/24 History multivitamin with folic acid 400 1 tablet PO DAILY 11/14/23 04/17/24 History mcg tablet (Tab-A-Holly) sodium chloride 1,000 mg soluble 1,000 mg PO DAILY 11/14/23 04/17/24 History tablet acetaminophen 325 mg tablet 975 mg (3 x 325 mg) PO TID #30 tabs 11/29/23 04/17/24 Rx carvedilol 3.125 mg tablet (Coreg) 12.5 mg (4 x 3.125 mg) PO QAM 30 11/29/23 04/17/24 Rx days #60 tabs hydralazine 25 mg tablet 25 mg PO TID 12/11/23 04/17/24 History lidocaine 5 % topical patch 1 patch topical DAILY 01/23/24 04/17/24 History solifenacin 10 mg tablet (Vesicare) 10 mg PO DAILY #30 tabs 03/13/24 04/17/24 Rx camphor-menthol 0.2 %-3.5 % 1 applic topical BID 04/17/24 04/17/24 History topical gel Allergies Allergy/AdvReac Type Severity Reaction Status Date / Time atorvastatin Allergy Unknown Other Verified 04/16/24 12:14 clonidine Allergy Unknown Unknown Verified 04/16/24 12:14 evolocumab (From Repatha Allergy Unknown Unknown Verified 04/16/24 12:14 SureClick) metoprolol Allergy Unknown Unknown Verified 04/16/24 12:14 nifedipine Allergy Unknown Unknown Verified 04/16/24 12:14 tramadol Allergy Unknown Unknown Verified 04/16/24 12:14 amlodipine AdvReac Anaphylaxis Verified 04/16/24 12:14 losartan AdvReac Anaphylaxis Verified 04/16/24 12:14 Vital Signs Vital Signs - 24 hr 04/17/24 16:00 04/17/24 18:00 04/17/24 20:00 Temperature Pulse Rate 63 83 65 Respiratory Rate 18 Blood Pressure Pulse Oximetry 98 Oxygen Delivery Nasal Cannula Oxygen Flow Rate 2 04/17/24 20:00 04/17/24 20:41 04/17/24 22:00 Temperature 37.1 C Pulse Rate 65 77 84 Respiratory Rate 18 Blood Pressure 154/59 H Pulse Oximetry 98 Oxygen Delivery Oxygen Flow Rate 04/17/24 22:55 04/17/24 23:36 04/18/24 00:00 Temperature 37.1 C Pulse Rate 67 72 Respiratory Rate 18 18 18 Blood Pressure 146/63 H Pulse Oximetry 96 98 98 Oxygen Delivery Nasal Cannula Nasal Cannula Oxygen Flow Rate 2 2 04/18/24 00:00 04/18/24 01:31 04/18/24 04:00 Temperature Pulse Rate 72 68 70 Respiratory Rate 18 Blood Pressure Pulse Oximetry 98 Oxygen Delivery Nasal Cannula Oxygen Flow Rate 2 04/18/24 04:00 04/18/24 06:00 04/18/24 07:53 Temperature 36.8 C Pulse Rate 70 66 79 Respiratory Rate 20 Blood Pressure 133/60 Pulse Oximetry 100 Oxygen Delivery Oxygen Flow Rate 04/18/24 08:00 04/18/24 09:10 04/18/24 10:00 Temperature Pulse Rate 74 68 78 Respiratory Rate Blood Pressure Pulse Oximetry Oxygen Delivery Oxygen Flow Rate 04/18/24 11:56 04/18/24 12:00 04/18/24 15:08 Temperature 36.7 C 36.8 C Pulse Rate 63 61 65 Respiratory Rate 20 20 Blood Pressure 121/61 149/52 H Pulse Oximetry 93 97 Oxygen Delivery Oxygen Flow Rate Exam Narrative: General: Nontoxic-appearing elderly female in the semi-Kunz position in bed. Weight: 79.1 kg. BMI: 30.9. HEENT: Hard of hearing. PERRL, EOMI. Sclera anicteric. Moist mucous membranes. Neck: Supple. Exam limited due to neck circumference but no obvious JVD. Respiratory: Respirations are nonlabored she is speaking full sentences. She is currently on 2 L nasal cannula with an SpO2 of 100%. Lung sounds are a bit diminished at the bases with fine crackles. Cardiovascular: Regular rate and rhythm with S1-S2. Murmur at the left upper sternal border. Gastrointestinal: Abdomen is soft, nontender, and nondistended with positive bowel sounds. Skin: Warm and dry. Generalized pallor. Extremities: No cyanosis or clubbing. She has 3 to 4+ bilateral lower extremity pitting edema, right greater than left. There is weeping of the legs, again worse on the right. Right upper extremity is in sling. Neurological: Alert. Cranial nerves 2-12 are grossly intact. No gross focal deficits to casual conversation. Psychiatric: Pleasant and cooperative with appropriate mood and affect. Results Labs and Meds 04/18/24 07:15 04/18/24 07:15 Lab results: Cardiac Enzymes 04/18/24 04/18/24 Range/Units 07:15 11:12 AST 35 (14-36) U/L Troponin I 0.050 H* (0.000-0.034) ng/mL CBC 04/18/24 Range/Units 07:15 WBC 3.0 L (4.5-10.0) K/mm3 RBC 2.99 L (4.2-5.4) M/mm3 Hgb 9.4 L (12.0-15.0) g/dL Hct 30.4 L (37.0-47.0) % Plt Count 158 (150-375) k/mm3 Comprehensive Metabolic Panel 04/18/24 Range/Units 07:15 Sodium 129 L (137-145) mmol/L Potassium 4.0 (3.4-5.0) mmol/L Chloride 97 L (98-107) mmol/L Carbon Dioxide 29 (22-30) mmol/L BUN 18 H (7-17) mg/dL Creatinine 0.60 L (0.7-1.0) mg/dL Glucose 61 L (65-110) mg/dL Calcium 8.9 (8.4-10.2) mg/dL AST 35 (14-36) U/L ALT 23 (6-35) U/L Alkaline Phosphatase 80 (38-126) U/L Total Protein 6.0 L (6.3-8.2) g/dL Albumin 3.3 L (3.5-5.1) g/dL Intake and Output 04/17/24 04/18/24 04/18/24 23:59 07:59 15:59 Intake Total 300 240 Output Total 1000 2800 Balance -1000 -2500 240 Intake: Oral 300 240 Output: Urine 1000 2800 Other: Number of Bowel Movements Today 1 Patient Weight 04/18/24 23:59 Weight 79.1 kg
[2024-04-18] MEDS: ACETAMINOPHEN 325 MG TABLET 650 MG PO (20:28)
[2024-04-19] VITALS (13 sets, daily range): BP systolic 104–140; BP diastolic 53–92; PULSE 62–81; RESP 14–20; TEMP 36.2–36.7; O2SAT 93–97
[2024-04-19 05:36] LABS: Hematocrit 28.2 % (37.0-47.0); Mean Corpuscular HGB Conc 31.9 g/dl (32-36); Mean Corpuscular Hemoglobin 30.8 pg (26-34); Mean Corpuscular Volume 96.6 fl (80-100); Mean Platelet Volume 8.4 fl (7.4-10.4); Platelet Count Result 151 k/mm3 (150-375); Red Blood Count 2.92 M/mm3 (4.2-5.4); Red Cell Distribution Width 16.9 % (11.5-14.5); White Blood Count 5.5 K/mm3 (4.5-10.0)
[2024-04-19 05:41] LABS: Alanine Aminotransferase 20 U/L (6-35); Albumin Level 3.1 g/dL (3.5-5.1); Alkaline Phosphatase 77 U/L (38-126); Anion Gap 2 mmol/L (4-12); Aspartate Amino Transferase 30 U/L (14-36); Bilirubin,Total 0.7 mg/dL (0.2-1.3); Blood Urea Nitrogen 20 mg/dL (7-17); Calcium 8.7 mg/dL (8.4-10.2); Carbon Dioxide 34 mmol/L (22-30); Chloride 94 mmol/L (98-107); Estimated CRCL calculation 41 ml/min; Estimated Glomerular Filt Rate > 60; Glucose 73 mg/dL (65-110); Potassium 3.4 mmol/L (3.4-5.0); Sodium 130 mmol/L (137-145)
--- NOTE | 2024-04-19 09:07 | PM.PNCARD ---
Progress Note: A&P Assessment and Plan (1) Diastolic heart failure: Code(s): I50.30 - Unspecified diastolic (congestive) heart failure Status: Acute (2) Poorly-controlled hypertension: Code(s): I10 - Essential (primary) hypertension Status: Chronic (3) Hyperlipidemia: Code(s): E78.5 - Hyperlipidemia, unspecified Status: Acute Plan 1. Acute on chronic diastolic CHF 2. Type 2 OR 3. HTN 4. Post op for R shoulder dislocation -It is my clinical impression that the patient had type 2 OR because of underlying diastolic heart failure. She most likely may have underlying obstructive heart disease -no indication for an invasive evaluation for now -she has preserved EF with grade 2 diastolic dysfunction -Transition to oral lasix 40 mg PO OD -Continue carvedilol and lisinopril Monitor blood pressure -She will need a stress test as an outpatient -continue aspirin 81 mg once a day, continue beta-petr -consider low-dose moderate intensity statin Subjective Date/time seen: 04/19/24 09:07 Interval history: No acute events overnight No chest pain or dyspnea Post-op pain in R shoulder Review of Systems Review of Systems: 12 systems were reviewed and are negative except for as per HPI. Exam Narrative: General: Nontoxic-appearing elderly female in the semi-Kunz position in bed. Weight: 79.1 kg. BMI: 30.9. HEENT: Hard of hearing. PERRL, EOMI. Sclera anicteric. Moist mucous membranes. Neck: Supple. Exam limited due to neck circumference but no obvious JVD. Respiratory: Respirations are nonlabored she is speaking full sentences. She is currently on 2 L nasal cannula with an SpO2 of 100%. Lung sounds are a bit diminished at the bases with fine crackles. Cardiovascular: Regular rate and rhythm with S1-S2. Murmur at the left upper sternal border. Gastrointestinal: Abdomen is soft, nontender, and nondistended with positive bowel sounds. Skin: Warm and dry. Generalized pallor. Extremities: No cyanosis or clubbing. She has 3 to 4+ bilateral lower extremity pitting edema, right greater than left. There is weeping of the legs, again worse on the right. Right upper extremity is in sling. Neurological: Alert. Cranial nerves 2-12 are grossly intact. No gross focal deficits to casual conversation. Psychiatric: Pleasant and cooperative with appropriate mood and affect. Objective Data Vital Signs Vital Signs: Vital Signs - 24 hr 04/18/24 09:10 04/18/24 10:00 04/18/24 11:56 Temperature 36.7 C Pulse Rate 68 78 63 Respiratory Rate 20 Blood Pressure 121/61 Pulse Oximetry 93 Oxygen Delivery 04/18/24 12:00 04/18/24 14:00 04/18/24 15:08 Temperature 36.8 C Pulse Rate 61 63 65 Respiratory Rate 20 Blood Pressure 149/52 H Pulse Oximetry 97 Oxygen Delivery 04/18/24 16:00 04/18/24 17:08 04/18/24 18:00 Temperature Pulse Rate 68 78 70 Respiratory Rate Blood Pressure Pulse Oximetry Oxygen Delivery 04/18/24 19:51 04/18/24 20:00 04/18/24 20:00 Temperature 36.4 C L Pulse Rate 67 69 Respiratory Rate 18 Blood Pressure 119/48 L Pulse Oximetry 94 Oxygen Delivery Room Air 04/18/24 22:00 04/18/24 23:37 04/19/24 00:00 Temperature 36.3 C L Pulse Rate 65 66 Respiratory Rate 16 Blood Pressure 123/48 L Pulse Oximetry 95 Oxygen Delivery Room Air 04/19/24 00:00 04/19/24 02:00 04/19/24 03:22 Temperature 36.6 C Pulse Rate 69 67 76 Respiratory Rate 14 Blood Pressure 133/53 L Pulse Oximetry 94 Oxygen Delivery 04/19/24 04:00 04/19/24 04:00 04/19/24 06:00 Temperature Pulse Rate 78 65 Respiratory Rate Blood Pressure Pulse Oximetry Oxygen Delivery Room Air 04/19/24 08:29 Temperature 36.7 C Pulse Rate 81 Respiratory Rate 20 Blood Pressure 140/60 Pulse Oximetry 93 Oxygen Delivery Intake/Output Intake/Output: Intake & Output 04/16/24 04/17/24 04/18/24 04/19/24 23:59 23:59 23:59 23:59 Intake Total 100 740 180 Output Total 2800 2800 Balance -2700 -2060 180 Meds/Results Medications: Active Medications Generic Name Dose Route Start Last Admin Trade Name Freq PRN Reason Stop Dose Admin Acetaminophen 650 mg 04/17/24 02:35 04/18/24 20:28 Acetaminophen 325 Mg Tablet PO 650 mg Q6H PRN Administration Mild Pain (1-3) or Fever Aspirin 81 mg 04/17/24 09:00 04/18/24 09:05 Aspirin 81 Mg Enteric Tablet PO 81 mg DAILY [facility] Administration Carvedilol 12.5 mg 04/18/24 09:10 04/18/24 17:08 Carvedilol 12.5 Mg Tablet PO 12.5 mg BID [facility]ED Administration Docusate Sodium 100 mg 04/17/24 09:00 04/18/24 20:35 Docusate Sodium 100 Mg Capsule PO Not Given Q12HR [facility] Enoxaparin Sodium 40 mg 04/17/24 11:25 04/18/24 09:10 Enoxaparin 40 Mg/0.4 Ml Syringe SUB-Q 40 mg DAILY [facility] Administration Fentanyl Citrate 25 mcg 04/17/24 09:37 Fentanyl Citrate Inj (*Crx) 100 Mcg/2 Ml Vial IV PUSH Q2M PRN Pain Hydralazine HCl 25 mg 04/17/24 09:00 04/18/24 17:08 Hydralazine Hcl 25 Mg Tablet PO 25 mg TID [facility] Administration Lidocaine 1 patch 04/17/24 09:00 04/18/24 09:10 Lidocaine 5% Patch TOPICAL 1 patch DAILY [facility] Administration Lisinopril 40 mg 04/17/24 09:00 04/18/24 09:05 Lisinopril 20 Mg Tablet PO 40 mg DAILY [facility] Administration Multivitamins Therapeutic 1 tablet 04/17/24 09:00 04/18/24 09:05 Multivitamins Therapeutic Tab (*Bkc) PO 1 tablet DAILY [facility] Administration Ondansetron HCl 4 mg 04/17/24 09:37 Ondansetron Inj 4 Mg/2 Ml Vial IV PUSH ONCE PRN Nausea Perflutren Lipid Microsphere 0 ml 04/17/24 02:35 Perflutren Lipid Microspheres 1.5 Ml Vial Diluted To 10 Ml Total Volume IV PUSH 04/20/24 02:36 ONCE PRN adequate visualization Protocol Sodium Chloride 1 gm 04/17/24 09:00 04/18/24 09:05 Sodium Chloride 1 Gm Tablet PO 1 gm DAILY [facility] Administration Solifenacin 10 mg 04/17/24 09:00 04/18/24 09:05 Solifenacin 5 Mg Tablet PO 10 mg QAM [facility] Administration Radiology Results: ITS Impressions Chest X-Ray 04/16/24 15:43 IMPRESSION: Subsegmental bibasilar atelectasis/consolidation. Small bilateral pleural effusions. Right shoulder dislocation. Shoulder X-Ray 04/17/24 12:13 IMPRESSION: Recurrent anterior right glenohumeral dislocation. Intraoperative X-Ray 04/17/24 12:15 IMPRESSION: 1. Fluoroscopy utilized during successful reduction of the previously dislocated right glenohumeral joint. Venous Doppler Study 04/18/24 10:23 IMPRESSION: 1. No deep venous thrombosis in either lower limb. Labs Labs: Laboratory Results - last 24 hr 04/18/24 04/19/24 11:12 04:23 WBC 5.5 RBC 2.92 L Hgb 9.0 L Hct 28.2 L MCV 96.6 D MCH 30.8 MCHC 31.9 L RDW 16.9 H Plt Count 151 MPV 8.4 Sodium 130 L Potassium 3.4 Chloride 94 L Carbon Dioxide 34 H Anion Gap 2 L BUN 20 H Creatinine 0.80 Estim Creat Clear Calc 41 Estimated GFR > 60 Glucose 73 Calcium 8.7 Total Bilirubin 0.7 AST 30 ALT 20 Alkaline Phosphatase 77 Troponin I 0.050 H* Total Protein 5.0 L Albumin 3.1 L
[2024-04-19] MEDS: ASPIRIN 81 MG ENTERIC TABLET PO (09:40)
[2024-04-19] MEDS: hydrALAZINE HCL 25 MG TABLET PO ×3 (09:40→16:51)
[2024-04-19] MEDS: MULTIVITAMINS THERAPEUTIC TAB (*BKC) 1 TABLET PO (09:41)
[2024-04-19] MEDS: lisinopriL 20 MG TABLET 40 MG PO (09:41)
[2024-04-19] MEDS: SODIUM CHLORIDE 1 GM TABLET PO (09:41)
[2024-04-19] MEDS: SOLIFENACIN 5 MG TABLET 10 MG PO (09:41)
[2024-04-19] MEDS: carvediloL 12.5 MG TABLET PO ×2 (09:41→16:51)
[2024-04-19] MEDS: ENOXAPARIN 40 MG/0.4 ML SYRINGE SUB-Q (09:41)
[2024-04-19] MEDS: LIDOCAINE 5% PATCH 1 PATCH TOPICAL (09:41)
[2024-04-19] MEDS: FUROSEMIDE 40 MG TABLET PO (10:09)
--- NOTE | 2024-04-19 13:31 | PC.NURSE ---
This patient, Christi Perez, was received from [[facility]] on 04/19/24 at 1330. Patient/family oriented to unit policies and routines. Report from Daisy
--- NOTE | 2024-04-19 13:33 | PC.NURSE ---
This patient, Christi Perez, was transferred to [ [facility] ] on 04/19/24 at 1324. Personal belongings sent with patient. Report given to [[email or web address] ]. Appropriate documentation sent with patient.
[2024-04-19] MEDS: ACETAMINOPHEN 325 MG TABLET 650 MG PO (15:40)
--- NOTE | 2024-04-19 17:02 | P.PNIM_ITS ---
Progress Note: A&P Assessment and Plan (1) Suspected congestive heart failure: Code(s): R09.89 - Other specified symptoms and signs involving the circulatory and respiratory systems Status: Acute Assessment and Plan: Will continue diuresis. She has preserved EF with grade 2 diastolic dysfunction Transition to oral lasix 40 mg PO OD Continue carvedilol and lisinopril Monitor blood pressure She will need a stress test as an outpatient Continue aspirin 81 mg once a day, continue beta-petr Patient not on statin due to allergy Lower extremity venous Doppler ordered and shows no DVT. Cardiology consult. Monitor I's and O's. (2) Anterior dislocation of right shoulder: Code(s): S43.014A - Anterior dislocation of right humerus, initial encounter Status: Acute Assessment and Plan: Orthopedic consult. Pain control. (3) Chronic hyponatremia: Code(s): E87.1 - Hypo-osmolality and hyponatremia Status: Chronic Assessment and Plan: Stable on current medications, will continue current treatment monitor closely. (4) Chronic anemia: Code(s): D64.9 - Anemia, unspecified Status: Acute Assessment and Plan: Stable monitor closely. (5) Hypertension: Code(s): I10 - Essential (primary) hypertension Status: Acute Assessment and Plan: Continue home meds and monitor closely. Plan Code status DNR DVT prophylaxis ordered Subjective Date/time seen: 04/19/24 17:02 Interval history: No acute events reported.Transitioned to oral lasix. Status post reduction of right shoulder Review of Systems Review of Systems: 12 systems were reviewed and are negativ e except for as per HPI. Exam Narrative: General: Nontoxic-appearing elderly female in the semi-Kunz position in bed. Weight: 79.1 kg. BMI: 30.9. HEENT: Hard of hearing. PERRL, EOMI. Sclera anicteric. Moist mucous membranes. Neck: Supple. Exam limited due to neck circumference but no obvious JVD. Respiratory: Respirations are nonlabored she is speaking full sentences. She is currently on 2 L nasal cannula with an SpO2 of 100%. Lung sounds are a bit diminished at the bases with fine crackles. Cardiovascular: Regular rate and rhythm with S1-S2. Murmur at the left upper sternal border. Gastrointestinal: Abdomen is soft, nontender, and nondistended with positive bowel sounds. Skin: Warm and dry. Generalized pallor. Extremities: No cyanosis or clubbing. She has 3 to 4+ bilateral lower extremity pitting edema, right greater than left. There is weeping of the legs, again worse on the right. Right upper extremity is in sling. Neurological: Alert. Cranial nerves 2-12 are grossly intact. No gross focal deficits to casual conversation. Psychiatric: Pleasant and cooperative with appropriate mood and affect. Objective Data Vital Signs Vital Signs: Vital Signs - 24 hr 04/18/24 17:08 04/18/24 18:00 04/18/24 19:51 Temperature 97.5 F L Pulse Rate 78 70 67 Respiratory Rate 18 Blood Pressure 119/48 L Pulse Oximetry 94 Oxygen Delivery 04/18/24 20:00 04/18/24 20:00 04/18/24 22:00 Temperature Pulse Rate 69 65 Respiratory Rate Blood Pressure Pulse Oximetry Oxygen Delivery Room Air 04/18/24 23:37 04/19/24 00:00 04/19/24 00:00 Temperature 97.4 F L Pulse Rate 66 69 Respiratory Rate 16 Blood Pressure 123/48 L Pulse Oximetry 95 Oxygen Delivery Room Air 04/19/24 02:00 04/19/24 03:22 04/19/24 04:00 Temperature 97.8 F Pulse Rate 67 76 Respiratory Rate 14 Blood Pressure 133/53 L Pulse Oximetry 94 Oxygen Delivery Room Air 04/19/24 04:00 04/19/24 06:00 04/19/24 08:00 Temperature Pulse Rate 78 65 72 Respiratory Rate Blood Pressure Pulse Oximetry Oxygen Delivery 04/19/24 08:29 04/19/24 09:41 04/19/24 10:00 Temperature 98.1 F Pulse Rate 81 73 70 Respiratory Rate 20 Blood Pressure 140/60 Pulse Oximetry 93 Oxygen Delivery 04/19/24 12:30 04/19/24 16:00 04/19/24 16:51 Temperature 97.2 F L Pulse Rate 62 62 Respiratory Rate 18 Blood Pressure 128/92 H 104/70 Pulse Oximetry 97 Oxygen Delivery Intake/Output Intake/Output: Intake & Output 04/16/24 04/17/24 04/18/24 04/19/24 23:59 23:59 23:59 23:59 Intake Total 100 740 770 Output Total 2800 2800 500 Balance -2700 -2059 270 Meds/Results Medications: Active Medications Generic Name Dose Route Start Last Admin Trade Name Freq PRN Reason Stop Dose Admin Acetaminophen 650 mg 04/17/24 02:35 04/19/24 15:40 Acetaminophen 325 Mg Tablet PO 650 mg Q6H PRN Administration Mild Pain (1-3) or Fever Aspirin 81 mg 04/17/24 09:00 04/19/24 09:40 Aspirin 81 Mg Enteric Tablet PO 81 mg DAILY [facility] Administration Carvedilol 12.5 mg 04/18/24 09:10 04/19/24 16:51 Carvedilol 12.5 Mg Tablet PO 12.5 mg BID [facility] Administration Docusate Sodium 100 mg 04/17/24 09:00 04/19/24 09:41 Docusate Sodium 100 Mg Capsule PO Not Given Q12HR [facility] Enoxaparin Sodium 40 mg 04/17/24 11:25 04/19/24 09:41 Enoxaparin 40 Mg/0.4 Ml Syringe SUB-Q 40 mg DAILY [facility] Administration Furosemide 40 mg 04/20/24 09:00 Furosemide 40 Mg Tablet PO DAILY [facility] Hydralazine HCl 25 mg 04/17/24 09:00 04/19/24 16:51 Hydralazine Hcl 25 Mg Tablet PO 25 mg TID [facility] Administration Lidocaine 1 patch 04/17/24 09:00 04/19/24 09:41 Lidocaine 5% Patch TOPICAL 1 patch DAILY [facility] Administration Lisinopril 40 mg 04/17/24 09:00 04/19/24 09:41 Lisinopril 20 Mg Tablet PO 40 mg DAILY [facility] Administration Multivitamins Therapeutic 1 tablet 04/17/24 09:00 04/19/24 09:41 Multivitamins Therapeutic Tab (*Bkc) PO 1 tablet DAILY [facility] Administration Ondansetron HCl 4 mg 04/17/24 09:37 Ondansetron Inj 4 Mg/2 Ml Vial IV PUSH ONCE PRN Nausea Perflutren Lipid Microsphere 0 ml 04/17/24 02:35 Perflutren Lipid Microspheres 1.5 Ml Vial Diluted To 10 Ml Total Volume IV PUSH 04/20/24 02:36 ONCE PRN adequate visualization Protocol Sodium Chloride 1 gm 04/17/24 09:00 04/19/24 09:41 Sodium Chloride 1 Gm Tablet PO 1 gm DAILY [facility] Administration Solifenacin 10 mg 04/17/24 09:00 04/19/24 09:41 Solifenacin 5 Mg Tablet PO 10 mg QAM [facility] Administration Radiology Results: ITS Impressions Chest X-Ray 04/16/24 15:43 IMPRESSION: Subsegmental bibasilar atelectasis/consolidation. Small bilateral pleural effusions. Right shoulder dislocation. Shoulder X-Ray 04/17/24 12:13 IMPRESSION: Recurrent anterior right glenohumeral dislocation. Intraoperative X-Ray 04/17/24 12:15 IMPRESSION: 1. Fluoroscopy utilized during successful reduction of the previously dislocated right glenohumeral joint. Venous Doppler Study 04/18/24 10:23 IMPRESSION: 1. No deep venous thrombosis in either lower limb. Labs Labs: Laboratory Results - last 24 hr 04/19/24 04:23 WBC 5.5 RBC 2.92 L Hgb 9.0 L Hct 28.2 L MCV 96.6 D MCH 30.8 MCHC 31.9 L RDW 16.9 H Plt Count 151 MPV 8.4 Sodium 130 L Potassium 3.4 Chloride 94 L Carbon Dioxide 34 H Anion Gap 2 L BUN 20 H Creatinine 0.80 Estim Creat Clear Calc 41 Estimated GFR > 60 Glucose 73 Calcium 8.7 Total Bilirubin 0.7 AST 30 ALT 20 Alkaline Phosphatase 77 Total Protein 5.0 L Albumin 3.1 L Quality VTE Prophylaxis VTE prophylaxis: pharmacologic ordered Hospitalist [facility] Advance Care Plan I have confirmed that the patient's Advanced Care Plan is present, code status is documented, or surrogate decision maker is listed in patient medical record.: Yes Medication Reconciliation I have utilized all available resources to obtain, update and review the patients current medications (includes all prescriptions, OTC, herbals, cannabis, and nutritional supplements).: Yes
[2024-04-20 06:06] VITALS: BP 148/44; PULSE 80; RESP 20; TEMP 36.4; O2SAT 91
[2024-04-20 09:44] VITALS: PULSE 80
[2024-04-20] MEDS: SOLIFENACIN 5 MG TABLET 10 MG PO (09:44)
[2024-04-20] MEDS: carvediloL 12.5 MG TABLET PO ×2 (09:44→18:05)
[2024-04-20] MEDS: ASPIRIN 81 MG ENTERIC TABLET PO (09:45)
[2024-04-20] MEDS: lisinopriL 20 MG TABLET 40 MG PO (09:45)
[2024-04-20] MEDS: DOCUSATE SODIUM 100 MG CAPSULE PO (09:45)
[2024-04-20] MEDS: SODIUM CHLORIDE 1 GM TABLET PO (09:45)
[2024-04-20] MEDS: LIDOCAINE 5% PATCH 1 PATCH TOPICAL (09:46)
[2024-04-20] MEDS: hydrALAZINE HCL 25 MG TABLET PO ×3 (09:46→18:05)
[2024-04-20] MEDS: FUROSEMIDE 40 MG TABLET PO (09:46)
[2024-04-20] MEDS: ENOXAPARIN 40 MG/0.4 ML SYRINGE SUB-Q (09:46)
[2024-04-20] MEDS: MULTIVITAMINS THERAPEUTIC TAB (*BKC) 1 TABLET PO (09:46)
[2024-04-20] MEDS: POTASSIUM CHLORIDE 20 MEQ PACKET (FOR LIQUID) 40 MEQ PO (10:49)
[2024-04-20 14:11] VITALS: BP 107/52; PULSE 62; RESP 18; TEMP 36.5; O2SAT 93
--- NOTE | 2024-04-20 14:50 | PM.DS ---
DS: Admitting Diagnosis Discharge Date 04/20/2024 Admitting Diagnosis Lower extremity swelling and right shoulder pain. DS: Discharge Diagnosis Discharge Diagnosis (1) Suspected congestive heart failure: Code(s): R09.89 - Other specified symptoms and signs involving the circulatory and respiratory systems Status: Acute (2) Anterior dislocation of right shoulder: Code(s): S43.014A - Anterior dislocation of right humerus, initial encounter Status: Acute Assessment and Plan: Orthopedic consult. Pain control. (3) Chronic hyponatremia: Code(s): E87.1 - Hypo-osmolality and hyponatremia Status: Chronic Assessment and Plan: Stable on current medications, will continue current treatment monitor closely. (4) Chronic anemia: Code(s): D64.9 - Anemia, unspecified Status: Acute Assessment and Plan: Stable monitor closely. (5) Hypertension: Code(s): I10 - Essential (primary) hypertension Status: Acute Assessment and Plan: Continue home meds and monitor closely. DS: Summary Hospital Course Hospital Course: This is a pleasant 88-year-old female with history of cerebrovascular accident, hypertension, hyperlipidemia, chronic hyponatremia, overactive bladder, anemia, and osteoarthritis who presented to the emergency department via EMS from [facility] for evaluation of lower extremity swelling and right shoulder pain. The patient provides the following history. She spends majority of her time in a wheelchair and is not necessarily unusual for her to have some swelling in her legs however they have become markedly swollen with weeping over the course of several days if not a bit longer. She also complains of vague right shoulder pain without reports of fall or trauma. She declined to take her medications this morning as she was coming to the hospital but states that she is usually compliant with them. She denies syncope, near syncope, fever, chills, sweats, cold and flu symptoms, chest pain, pleuritic pain, palpitations, orthopnea, paroxysmal nocturnal dyspnea, nausea, vomiting, diarrhea, dysuria, and calf pain. In the ED: She was afebrile on arrival with stable vital signs. Labs were significant for WBC count of 4.1, hemoglobin 9.7, sodium 130, BUN 22, creatinine 0.60, AST 37, proBNP 1890, troponin 0.042. Right shoulder x-ray showed right shoulder dislocation and post reduction and continue to show a persistent anteromedial dislocation of the right humeral head. It is unclear whether not this is a chronic finding and orthopedic surgeon on-call was consulted. Chest x-ray showed subsegmental bibasilar atelectasis/consolidation small bilateral pleural effusions. She was given furosemide 40 mg IV and is being admitted in this setting for further treatment and evaluation. Of note the patient states that she has no known history of congestive heart failure or coronary disease. 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 Assumed care on . 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 EKG shows sinus rhythm. Patient underwent reduction of dislocated right shoulder on 04/17. Echo shows preserved EF with grade 2 diastolic dysfunction. Please refer echo for full report. Continue lasix 40 mg PO OD,carvedilol and lisinopril. Monitor blood pressure.She will need a stress test as an outpatient.Patient not on statin due to allergy.Lower extremity venous Doppler ordered and shows no DVT. Status at Discharge Cognitive/behavioral status at discharge: Stable Time Spent with Patient Time attestation: Total time spent providing and/or coordinating discharge services: 45 minute Exam Narrative: General: Nontoxic-appearing elderly female in the semi-Kunz position in bed. Weight: 79.1 kg. BMI: 30.9. HEENT: Hard of hearing. PERRL, EOMI. Sclera anicteric. Moist mucous membranes. Neck: Supple. Exam limited due to neck circumference but no obvious JVD. Respiratory: Respirations are nonlabored she is speaking full sentences. She is currently on 2 L nasal cannula with an SpO2 of 100%. Lung sounds are a bit diminished at the bases with fine crackles. Cardiovascular: Regular rate and rhythm with S1-S2. Murmur at the left upper sternal border. Gastrointestinal: Abdomen is soft, nontender, and nondistended with positive bowel sounds. Skin: Warm and dry. Generalized pallor. Extremities: No cyanosis or clubbing. She has 3 to 4+ bilateral lower extremity pitting edema, right greater than left. There is weeping of the legs, again worse on the right. Right upper extremity is in sling. Neurological: Alert. Cranial nerves 2-12 are grossly intact. No gross focal deficits to casual conversation. Psychiatric: Pleasant and cooperative with appropriate mood and affect. Discharge Plan Discharge Attending physician on discharge: Americo Parson Consulting providers: Mario Alberto Bullard; Riaz Weir Discharging Clinician: Americo Parson Anticipated Discharge Date/Time: 04/20/24 14:44 Patient Disposition: NH Group Home/Asst Living Activity: other - see discharge instructions Diet: heart healthy Discharge Instructions: Patient needs to continue receiving physical therapy. Patient is max a for bed mobility, and transfer. Take precautions to avoid falls. Rise slowly from a lying or sitting position. Pause before standing or walking. Contact your doctor or call 911 and come to the Emergency Room if you have any type of trauma, lightheadedness with standing or other worrisome symptoms. Avoid NSAIDs (ibuprofen, naproxen, Aleve). Tylenol is safe to take. Follow-up with your primary care provider in 1-2 weeks. Please call for appointment. Follow-up with Cardiology and Orthopedics in 2-4 weeks. Please call for an appointment. Thank you for using [facility] for your health care needs. Patient Instructions: Antibiotic Form, Enoxaparin (By injection), High Troponin Levels (GEN) Patient Language: Upper Sorbian Stand Alone Forms: General Discharge Information Discharge Medications: New acetaminophen 325 mg Tablet 650 mg PO Q6H PRN (Reason: Mild Pain (1-3) Or Fever) Qty: 30 0RF furosemide 40 mg Tablet 40 mg PO DAILY Qty: 30 0RF Continued solifenacin [Vesicare] 10 mg tablet 10 mg PO DAILY Qty: 30 6RF multivitamin [Daily-Holly] Tablet 1 tablet PO DAILY lisinopril 40 mg tablet 40 mg PO DAILY Qty: 90 0RF hydralazine 25 mg tablet 25 mg PO TID lidocaine 5 % Adhesive Patch,Medicated 1 patch TOPICAL DAILY Rx Instructions: leave on most painful area for up to 12 hrs -Right knee multivitamin with folic acid [Tab-A-Holly] 400 mcg tablet 1 tablet PO DAILY sodium chloride 1,000 mg tablet,soluble 1,000 mg PO DAILY camphor-menthol 0.2-3.5 % gel 1 applic topical BID Qty: 113.4 0RF Rx Instructions: rub in gently and completely/apply to rt. basilia aspirin 81 mg Tablet,Delayed Release (Dr/Ec) 81 mg PO DAILY docusate sodium 100 mg Capsule 100 mg PO Q12HR Qty: 60 0RF carvedilol [Coreg] 3.125 mg Tablet 12.5 mg PO QAM 30 Days Qty: 60 0RF Discontinued acetaminophen 325 mg Tablet 975 mg PO TID Qty: 30 0RF Date of admission: 04/17/24 08:19 Primary Care Provider: Steve Gomez Admitting Provider: Dao Lee Attending physician on admission: Dao Lee Condition: Stable Quality VTE Prophylaxis VTE prophylaxis: pharmacologic ordered
[2024-04-20 18:05] VITALS: PULSE 62
[2024-04-20 20:15] VITALS: BP 107/64; PULSE 66; RESP 16; TEMP 36.6; O2SAT 95
[2024-04-21] MEDS: ACETAMINOPHEN 325 MG TABLET 650 MG PO (03:34)
[2024-04-21] MEDS: FUROSEMIDE INJ 40 MG/4 ML VIAL IV PUSH (03:35)
[2024-04-21 05:25] VITALS: BP 160/62; PULSE 63; RESP 18; TEMP 36.7; O2SAT 95
[2024-04-21 08:00] VITALS: PULSE 63; RESP 18; O2SAT 95
--- NOTE | 2024-04-21 08:32 | P.PNIM_ITS ---
Progress Note: A&P Assessment and Plan (1) Suspected congestive heart failure: Code(s): R09.89 - Other specified symptoms and signs involving the circulatory and respiratory systems Status: Acute (2) Anterior dislocation of right shoulder: Code(s): S43.014A - Anterior dislocation of right humerus, initial encounter Status: Acute Assessment and Plan: Orthopedic consult. Pain control. (3) Chronic hyponatremia: Code(s): E87.1 - Hypo-osmolality and hyponatremia Status: Chronic Assessment and Plan: Stable on current medications, will continue current treatment monitor closely. (4) Chronic anemia: Code(s): D64.9 - Anemia, unspecified Status: Acute Assessment and Plan: Stable monitor closely. (5) Hypertension: Code(s): I10 - Essential (primary) hypertension Status: Acute Assessment and Plan: Continue home meds and monitor closely. Subjective Date/time seen: 04/21/24 08:32 Interval history: Patient was not discharged yesterday due to weather condition. Given one dose of lasix by night team. Patient will be discharged today. Review of Systems Review of Systems: 12 systems were reviewed and are negativ e except for as per HPI. Exam Narrative: General: Nontoxic-appearing elderly female in the semi-Kunz position in bed. Weight: 79.1 kg. BMI: 30.9. HEENT: Hard of hearing. PERRL, EOMI. Sclera anicteric. Moist mucous membranes. Neck: Supple. Exam limited due to neck circumference but no obvious JVD. Respiratory: Respirations are nonlabored she is speaking full sentences. She is currently on 2 L nasal cannula with an SpO2 of 100%. Lung sounds are a bit diminished at the bases with fine crackles. Cardiovascular: Regular rate and rhythm with S1-S2. Murmur at the left upper sternal border. Gastrointestinal: Abdomen is soft, nontender, and nondistended with positive bowel sounds. Skin: Warm and dry. Generalized pallor. Extremities: No cyanosis or clubbing. She has 3 to 4+ bilateral lower extremity pitting edema, right greater than left. There is weeping of the legs, again worse on the right. Right upper extremity is in sling. Neurological: Alert. Cranial nerves 2-12 are grossly intact. No gross focal deficits to casual conversation. Psychiatric: Pleasant and cooperative with appropriate mood and affect. Objective Data Vital Signs Vital Signs: Vital Signs - 24 hr 04/20/24 09:40 04/20/24 09:44 04/20/24 13:20 Temperature Pulse Rate 80 Respiratory Rate Blood Pressure Pulse Oximetry Oxygen Delivery Room Air Room Air 04/20/24 14:11 04/20/24 18:05 04/20/24 20:15 Temperature 97.7 F 97.9 F Pulse Rate 62 62 66 Respiratory Rate 18 16 Blood Pressure 107/52 L 107/64 Pulse Oximetry 93 95 Oxygen Delivery 04/20/24 20:27 04/21/24 05:25 Temperature 98.1 F Pulse Rate 63 Respiratory Rate 18 Blood Pressure 160/62 H Pulse Oximetry 95 Oxygen Delivery Room Air Intake/Output Intake/Output: Intake & Output 04/18/24 04/19/24 04/20/24 04/21/24 23:59 23:59 23:59 23:59 Intake Total 740 1010 820 240 Output Total 2800 500 250 Balance -2060 510 820 -10 Meds/Results Medications: Active Medications Generic Name Dose Route Start Last Admin Trade Name Freq PRN Reason Stop Dose Admin Acetaminophen 650 mg 04/17/24 02:35 04/21/24 03:34 Acetaminophen 325 Mg Tablet PO 650 mg Q6H PRN Administration Mild Pain (1-3) or Fever Aspirin 81 mg 04/17/24 09:00 04/20/24 09:45 Aspirin 81 Mg Enteric Tablet PO 81 mg DAILY CED Administration Carvedilol 12.5 mg 04/18/24 09:10 04/20/24 18:05 Carvedilol 12.5 Mg Tablet PO 12.5 mg BID CED Administration Docusate Sodium 100 mg 04/17/24 09:00 04/20/24 20:27 Docusate Sodium 100 Mg Capsule PO Not Given Q12HR CED Enoxaparin Sodium 40 mg 04/17/24 11:25 04/20/24 09:46 Enoxaparin 40 Mg/0.4 Ml Syringe SUB-Q 40 mg DAILY CED Administration Furosemide 40 mg 04/20/24 09:00 04/20/24 09:46 Furosemide 40 Mg Tablet PO 40 mg DAILY CED Administration Hydralazine HCl 25 mg 04/17/24 09:00 04/20/24 18:05 Hydralazine Hcl 25 Mg Tablet PO 25 mg TID CED Administration Lidocaine 1 patch 04/17/24 09:00 04/20/24 09:46 Lidocaine 5% Patch TOPICAL 1 patch DAILY CED Administration Lisinopril 40 mg 04/17/24 09:00 04/20/24 09:45 Lisinopril 20 Mg Tablet PO 40 mg DAILY CED Administration Multivitamins Therapeutic 1 tablet 04/17/24 09:00 04/20/24 09:46 Multivitamins Therapeutic Tab (*Bkc) PO 1 tablet DAILY CED Administration Ondansetron HCl 4 mg 04/17/24 09:37 Ondansetron Inj 4 Mg/2 Ml Vial IV PUSH ONCE PRN Nausea Sodium Chloride 1 gm 04/17/24 09:00 04/20/24 09:45 Sodium Chloride 1 Gm Tablet PO 1 gm DAILY CED Administration Solifenacin 10 mg 04/17/24 09:00 04/20/24 09:44 Solifenacin 5 Mg Tablet PO 10 mg QAM CED Administration Radiology Results: ITS Impressions Chest X-Ray 04/16/24 15:43 IMPRESSION: Subsegmental bibasilar atelectasis/consolidation. Small bilateral pleural effusions. Right shoulder dislocation. Shoulder X-Ray 04/17/24 12:13 IMPRESSION: Recurrent anterior right glenohumeral dislocation. Intraoperative X-Ray 04/17/24 12:15 IMPRESSION: 1. Fluoroscopy utilized during successful reduction of the previously dislocated right glenohumeral joint. Venous Doppler Study 04/18/24 10:23 IMPRESSION: 1. No deep venous thrombosis in either lower limb. Quality VTE Prophylaxis VTE prophylaxis: pharmacologic ordered Hospitalist MIPS Advance Care Plan I have confirmed that the patient's Advanced Care Plan is present, code status is documented, or surrogate decision maker is listed in patient medical record.: Yes Medication Reconciliation I have utilized all available resources to obtain, update and review the patients current medications (includes all prescriptions, OTC, herbals, laura abis, and nutritional supplements).: Yes
[2024-04-21] MEDS: ASPIRIN 81 MG ENTERIC TABLET PO (09:03)
[2024-04-21] MEDS: SOLIFENACIN 5 MG TABLET 10 MG PO (09:04)
[2024-04-21] MEDS: carvediloL 12.5 MG TABLET PO (09:04)
[2024-04-21] MEDS: lisinopriL 20 MG TABLET 40 MG PO (09:04)
[2024-04-21] MEDS: MULTIVITAMINS THERAPEUTIC TAB (*BKC) 1 TABLET PO (09:04)
[2024-04-21] MEDS: SODIUM CHLORIDE 1 GM TABLET PO (09:05)
[2024-04-21] MEDS: DOCUSATE SODIUM 100 MG CAPSULE PO (09:06)
[2024-04-21] MEDS: hydrALAZINE HCL 25 MG TABLET PO ×2 (09:07→13:17)
[2024-04-21] MEDS: FUROSEMIDE 40 MG TABLET PO (09:07)
[2024-04-21] MEDS: LIDOCAINE 5% PATCH 1 PATCH TOPICAL (09:09)
[2024-04-21] MEDS: ENOXAPARIN 40 MG/0.4 ML SYRINGE SUB-Q (09:09)
[2024-04-21 14:00] VITALS: BP 155/76; PULSE 77; RESP 14; TEMP 36.2; O2SAT 96
== END 2024-04-21 14:57 | DRG 280 ==
LOC: ANHED 21:40 → ANHIMU 04-17 01:38 → ANH3MEDSUR 04-20 13:54 → ANHIMU 04-23 12:19
PROVIDERS: Internal Medicine; Orthopaedic Surgery; Physician Assistant; Admitting Provider Internal Medicine; Emergency Provider Physician Assistant; PCP Internal Medicine; Visit Provider General Practice
PROC: 0RSJXZZ Reposition Right Shoulder Joint, External Approach (ICD-10-PCS; principal; 2024-04-17 10:00)
DX: I11.0 Hypertensive heart disease with heart failure (principal); I50.33 Acute on chronic diastolic (congestive) heart failure; I21.A1 Myocardial infarction type 2; E87.1 Hypo-osmolality and hyponatremia; S43.014A Anterior dislocation of right humerus, initial encounter; D64.9 Anemia, unspecified; N32.81 Overactive bladder; E78.5 Hyperlipidemia, unspecified; I71.43 Infrarenal abdominal aortic aneurysm, without rupture; M19.90 Unspecified osteoarthritis, unspecified site; E66.9 Obesity, unspecified; X58.XXXA Exposure to other specified factors, initial encounter; Z96.651 Presence of right artificial knee joint; Z86.73 Personal history of transient ischemic attack (TIA), and cerebral infarction without residual deficits; Z95.0 Presence of cardiac pacemaker; Z79.82 Long term (current) use of aspirin
CPT/HCPCS: 23605; 36415; 71045; 73030; 80048; 80053; 81003; 83735; 83880; 84443; 84484; 85025; 85027; 85610; 85730; 93005; 93306; 93970; 94762; 96374; 97161; 97166; 99199; 99285; A9270; G0378; J1650; J1940; J2003; J2004; J2704; J7120